=== PATIENT | female | born 1970 | race Caucasian/White ===

== ENCOUNTER 2017-01-12 01:33 | Outpatient (CLI) | payer OTHER | END 2017-01-12 01:34 | disposition critical access hospital (66) | LOC: EMS 01:33 | PROVIDERS: ATTEND Surgery | DX: T44.7X2A Poisoning by beta-adrenoreceptor antagonists, intentional self-harm, initial encounter (principal); T46.1X2A Poisoning by calcium-channel blockers, intentional self-harm, initial encounter | CPT/HCPCS: A0425; A0427 ==

== ENCOUNTER 2017-01-12 01:48 | Inpatient (IN) | payer OTHER ==
[2017-01-12] MEDS ORDERED: SODIUM CHLORIDE 0.9% 1,000 ML IV ONE ×3 (01:56→03:24)
[2017-01-12] MEDS ORDERED: DEXTROSE 50% ABBOJECT 25 GM/50 ML SYRINGE IVP STA (01:59)
[2017-01-12] MEDS ORDERED: GLUCAGON 5 MG in DEXTROSE 5% 45 ML IV STA ×2 (01:59→03:05)
[2017-01-12] MEDS ORDERED: INSULIN REGULAR HUMAN 100 UNIT in SODIUM CHLORIDE 0.9% 100ML 99 ML IV STA (01:59)
[2017-01-12] MEDS ORDERED: GLUCAGON 1 MG/ML VIAL ONE ×3 (02:01→05:47)
[2017-01-12] MEDS ORDERED: WATER FOR INJECTION,STERILE 10 ML ONE (02:01)
[2017-01-12] MEDS ORDERED: INSULIN REGULAR HUMAN 100 UNIT/1 ML 10 ML MDV IVP STA (02:02)
[2017-01-12] MEDS ORDERED: DEXTROSE 50% ABBOJECT 25 GM/50 ML SYRINGE ONE (02:05)
[2017-01-12] MEDS ORDERED: INSULIN REGULAR HUMAN 100 UNIT/1 ML 10 ML MDV ONE ×2 (02:06→02:21)
[2017-01-12] MEDS ORDERED: CALCIUM CHLORIDE ABBOJECT 1000MG/10 ML SYRINGE IVP STA (02:07)
[2017-01-12] MEDS: SODIUM CHLORIDE 0.9% 1,000 ML IV ONE (02:11)
[2017-01-12] MEDS ORDERED: CALCIUM CHLORIDE ABBOJECT 1000MG/10 ML SYRINGE ONE (02:14)
[2017-01-12 02:15] LABS: ACETAMINOPHEN < 10 ug/mL (10-30); ALBUMIN/GLOBULIN RATIO 1.1 (1.0-2.2); BILIRUBIN,TOTAL 0.3 mg/dL (0.2-1.0); BUN - BLOOD UREA NITROGEN 6 mg/dL (6-20); CALCIUM 9.2 mg/dL (8.5-10.3); CARBON DIOXIDE - CO2 26 mmol/L (21-32); CHLORIDE 100 mmol/L (101-111); GFR - MDRD 59 (>89); GLUCOSE 117 mg/dL (70-100); LIPASE 24 U/L (22-51); POTASSIUM 3.1 mmol/L (3.5-5.0); SALICYLATE < 6.0 mg/dL; SODIUM 138 mmol/L (135-145); TOTAL PROTEIN 6.8 g/dL (6.7-8.2)
[2017-01-12] MEDS ORDERED: DEXTROSE 5% 250 ML IV ONE (02:15)
[2017-01-12] MEDS ORDERED: ONDANSETRON 4 MG/2 ML VIAL ONE (02:18)
[2017-01-12 02:24] LABS: BASOPHILS % (AUTO) 0.8 %; EOSINOPHILS # (AUTO) 0.1 10^3/uL (0.0-0.7); EOSINOPHILS % (AUTO) 1.7 %; HCT - HEMATOCRIT 35.3 % (37.0-47.0); LYMPHOCYTES # (AUTO) 1.5 10^3/uL (1.5-3.5); LYMPHOCYTES % (AUTO) 24.6 %; MEAN CORPUSCULAR HEMOGLOBIN 33.8 pg (27.0-31.0); MEAN CORPUSCULAR VOLUME 99.4 fL (81.0-99.0); MEAN PLATELET VOLUME 9.2 fL (7.9-10.8); MONOCYTES # (AUTO) 0.6 10^3/uL (0.0-1.0); MONOCYTES % (AUTO) 9.9 %; NEUTROPHILS # (AUTO) 3.8 10^3/uL (1.5-6.6); NUCLEATED RED BLOOD CELLS AUTO 0.3 /100WBC; RED BLOOD COUNT 3.55 10^6/uL (4.20-5.40); RED CELL DISTRIBUTION WIDTH 17.2 % (12.0-15.0)
[2017-01-12] MEDS: DEXTROSE 10% 1,000 ML IV STA ×3 (02:25→07:31)
[2017-01-12] MEDS ORDERED: POTASSIUM CHLOR 20 MEQ/100 ML 100 ML IV ONE (02:49)
--- NOTE | 2017-01-12 02:52 | ED Physician Documentation ---
PD HPI OVERDOSE - Stated complaint Stated Complaint: OD - Chief complaint Chief Complaint: Cardiac - History obtained from History obtained from: Patient, Family, EMS - History of Present Illness Timing - onset: How many hours ago Subtance(s) ingested: EtOH Associated symptoms: Other (hypotension) Contributing factors: Suicidal Pain level max: 0 Pain level now: 0 Treatment COOK NIGHT: Other (IVF) Similar symptoms before: Diagnosis (suicidal ideation.) Recently seen: Not recently seen - Additional information Additional information: States was suicidal and attempted suicide when she was a teenager. Reportedly took 30 2.5mg amlodopine and 30 50mg metoprolol 4 hrs COOK NIGHT. 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 - Present Medications Home Medications: Ambulatory Orders Medication Instructions Recorded Confirmed Atorvastatin [Lipitor] 0 mg ORAL QPM 01/14/16 01/12/17 Metoprolol Tartrate 0 mg ORAL BID 01/14/16 01/12/17 amLODIPine [Norvasc] 0 mg ORAL DAILY 01/14/16 01/12/17 - Allergies Allergies/Adverse Reactions: Allergies Allergy/AdvReac Type Severity Reaction Status Date / Time acetaminophen [From Vicodin] AdvReac Nausea Verified 01/14/16 13:00 hydrocodone bitartrate * AdvReac Nausea Verified 01/14/16 13:00 [From Vicodin] shellfish derived AdvReac Nausea Verified 01/12/17 03:15 - Social History Does the pt smoke?: No Smoking Status: Former smoker (quit 3 years ago) Does the pt drink ETOH?: Yes Does the pt have substance abuse?: No PD ED PE NORMAL - Vitals Vital signs reviewed: Yes - General General: Alert and oriented X 3, No acute distress, Well developed/nourished - HEENT HEENT: Moist mucous membranes - Neck Neck: Supple, no meningeal sign - Cardiac Cardiac: RRR, Strong equal pulses - Respiratory Respiratory: No respiratory distress, Clear bilaterally - Abdomen Abdomen: Soft, Non tender - Back Back: No CVA TTP, No spinal TTP - Derm Derm: Warm and dry, No rash - Extremities Extremities: No edema, No calf tenderness / cord - Neuro Neuro: Alert and oriented X 3 - Psych Psych: Normal mood, Normal affect Results - Vitals Vitals: Vital Signs - 24 hr 01/12/17 01/12/17 01/12/17 01:50 02:20 02:31 Temperature 36.8 C Heart Rate 70 83 78 Respiratory 15 15 18 Rate Blood Pressure 70/47 L 75/51 L 62/36 L O2 Saturation 96 89 L 100 01/12/17 01/12/17 01/12/17 02:39 02:42 02:45 Temperature Heart Rate 74 75 70 Respiratory 18 17 16 Rate Blood Pressure 87/28 L 68/44 L 80/48 L O2 Saturation 100 97 01/12/17 01/12/17 01/12/17 02:55 02:57 03:05 Temperature Heart Rate 72 71 73 Respiratory 15 13 16 Rate Blood Pressure 84/47 L 82/53 L 88/50 L O2 Saturation 98 97 96 Oxygen O2 Source Nasal cannula Oxygen Flow Rate 4 - Labs Labs: Laboratory Tests 01/12/17 01/12/17 02:00 02:00 WBC 6.0 RBC 3.55 L Hgb 12.0 Hct 35.3 L MCV 99.4 H MCH 33.8 H MCHC 34.0 RDW 17.2 H Plt Count 229 MPV 9.2 Neut # 3.8 Lymph # 1.5 Stoddard # 0.6 Eos # 0.1 Baso # 0.0 Absolute Nucleated RBC 0.02 Nucleated RBCs 0.3 Sodium 138 Potassium 3.1 L Chloride 100 L Carbon Dioxide 26 Anion Gap 12.0 BUN 6 Creatinine 1.0 Estimated GFR (MDRD) 59 L Glucose 117 H Calcium 9.2 Total Bilirubin 0.3 AST 150 H ALT 90 H Alkaline Phosphatase 60 Total Protein 6.8 Albumin 3.5 Globulin 3.3 Albumin/Globulin Ratio 1.1 Lipase 24 Salicylates < 6.0 Acetaminophen < 10 L Ethyl Alcohol 138.3 - Rads (name of study) cxr Radiology: Prelim report reviewed, EMP read contemporaneously, See rad report ( Interstitial infiltrates or noncardiogenic edema. Right IJ catheter tip in the lower SVC. ) Procedures - Central Line Central Line Preparation: Consent Obtained (verbal pt and spouse), Time out completed, Ultrasound used, Sterile prep and drape Central line location: Right IJ Central line type: Triple lumen Central line aftercare: Chlorhexidine disc placed, Secured, Placement confirmed , No pneumothorax, No complications, Bundle checklist complete, Pt tolerated well PD MEDICAL DECISION MAKING - ED course Complexity details: reviewed results, re-evaluated patient, considered differential, d/w patient, d/w family, d/w entry level sales consultant ED course: Patient is a 38-year-old female who presents to the emergency department with a suicide attempt. Patient had a central line placed in the emergency department. 2 peripheral IVs. Given calcium chloride, glucagon, normal saline. Started on Levophed. Given D50 and started on a high-dose insulin drip. Consultation with poison control was also undertaken regarding the above measures. She remained mentating in the emergency department and in control of her own airway , therefore we did not intubate her. Discussed the case with the hospitalist, Dr. Combs who accepts. Patient will be admitted to ICU. This document was made in part using voice recognition software. While efforts are made to proofread this document, sound alike and grammatical errors may occur. - Critical Care Time(min): 45 Time Includes: Direct patient care, Review records, Reassess patient, Document care, Coordinate care, Medical consult, See progress note Data interpretation: See progress note Procedures included in critical care time: See progress note Procedures excluded from critical care time: Central IV, EKG, See progress note Departure - Departure Disposition: 66 [facility] DC/Xfer Clinical Impression: Calcium channel michael overdose Suicide attempt by beta michael overdose Qualifiers: Encounter type: initial encounter Qualified Code(s): T44.7X2A - Poisoning by beta-adrenoreceptor antagonists, intentional self-harm, initial encounter Hypotension Qualifiers: Hypotension type: unspecified hypotension type Qualified Code(s): I95.9 - Hypotension, unspecified Condition: Serious
[2017-01-12] MEDS ORDERED: ACETAMINOPHEN 325 MG TABLET PO PRN (03:05)
[2017-01-12] MEDS ORDERED: INSULIN REGULAR HUMAN 100 UNIT in SODIUM CHLORIDE 0.9% 100ML 99 ML IV SCH (03:05)
[2017-01-12] MEDS ORDERED: CALCIUM GLUCONATE 1000 MG/10 ML VIAL IVP STA (03:05)
[2017-01-12] MEDS ORDERED: PROCHLORPERAZINE 10 MG/2 ML VIAL IVP PRN (03:05)
--- NOTE | 2017-01-12 03:17 | XRAY Preliminary Report ---
Exam: XR Chest 1 View IMPRESSION: 1. Interstitial infiltrates or noncardiogenic edema. 2. Right IJ catheter tip in the lower SVC. [facility] SITE ID: [id number]
--- NOTE | 2017-01-12 03:19 | XRAY Report ---
EXAM: CHEST RADIOGRAPHY EXAM DATE: 01/12/2017 02:58 AM. CLINICAL HISTORY: Central line placement. COMPARISON: 01/14/2016. TECHNIQUE: 1 view. FINDINGS: Lungs/Pleura: Bilateral interstitial infiltrates or noncardiogenic edema. No jo alveolar consolida tion or pleural effusion seen. No pneumothorax. Mediastinum: Within exam limitations, cardiomediastinal contour is normal. Other: Right internal jugular catheter in the lower SVC. IMPRESSION: 1. Interstitial infiltrates or noncardiogenic edema. 2. Right IJ catheter tip in the lower SVC. [facility] Referring Provider Line: [phone] SITE ID: [id number]
[2017-01-12] MEDS ORDERED: POTASSIUM CHLOR 10 MEQ/100 ML 200 ML IV ONE (03:22)
[2017-01-12] MEDS ORDERED: CALCIUM GLUCONATE 1000 MG/10 ML VIAL ONE (03:35)
[2017-01-12] MEDS ORDERED: SODIUM CHLORIDE 0.9% 100ML 100 ML IV ONE (03:49)
[2017-01-12] MEDS ORDERED: CALCIUM GLUCONATE 1,000 MG in SODIUM CHLORIDE 0.9% 50 ML IV ONE (04:00)
[2017-01-12] MEDS ORDERED: DEXTROSE 10% 1,000 ML IV SCH ×2 (04:00→09:00)
[2017-01-12 04:06] LABS: BILIRUBIN,URINE NEGATIVE (NEGATIVE); UA w/ MICROSCOPIC CHARGE YES
[2017-01-12 04:14] LABS: UR CULTURE IF IND INDICATED
[2017-01-12 04:43] LABS: BASOPHILS # (AUTO) 0.1 10^3/uL (0.0-0.1); BASOPHILS % (AUTO) 0.5 %; EOSINOPHILS # (AUTO) 0.1 10^3/uL (0.0-0.7); EOSINOPHILS % (AUTO) 0.8 %; HCT - HEMATOCRIT 33.4 % (37.0-47.0); HGB - HEMOGLOBIN 11.4 g/dL (12.0-16.0); LYMPHOCYTES # (AUTO) 1.4 10^3/uL (1.5-3.5); LYMPHOCYTES % (AUTO) 14.4 %; MEAN CORPUSCULAR HEMOGLOBIN 33.9 pg (27.0-31.0); MEAN CORPUSCULAR HGB CONC 34.1 g/dL (32.0-36.0); MEAN CORPUSCULAR VOLUME 99.5 fL (81.0-99.0); MEAN PLATELET VOLUME 8.5 fL (7.9-10.8); MONOCYTES # (AUTO) 0.4 10^3/uL (0.0-1.0); MONOCYTES % (AUTO) 4.3 %; NEUTROPHILS # (AUTO) 7.6 10^3/uL (1.5-6.6); NUCLEATED RED BLOOD CELLS AUTO 0.2 /100WBC; RED BLOOD COUNT 3.36 10^6/uL (4.20-5.40); RED CELL DISTRIBUTION WIDTH 17.5 % (12.0-15.0); UNCORRECTED WHITE BLOOD COUNT 9.6 x10^3/uL; WHITE BLOOD COUNT 9.6 x10^3/uL (4.8-10.8)
[2017-01-12 04:45] LABS: CALCIUM 9.5 mg/dL (8.5-10.3); CREATININE 0.9 mg/dL (0.4-1.0)
[2017-01-12 04:47] LABS: INR 1.1 (0.8-1.2); PT - PROTHROMBIN TIME 12.3 secs (9.9-12.6)
[2017-01-12 04:48] LABS: POTASSIUM 2.4 mmol/L (3.5-5.0)
[2017-01-12 04:50] LABS: CALCIUM 9.6 mg/dL (8.5-10.3); POTASSIUM 2.4 mmol/L (3.5-5.0)
[2017-01-12 05:08] LABS: ALBUMIN/GLOBULIN RATIO 1.1 (1.0-2.2); BILIRUBIN,TOTAL 0.8 mg/dL (0.2-1.0); CREATININE 0.9 mg/dL (0.4-1.0); MAGNESIUM 1.1 mg/dL (1.7-2.8); TOTAL PROTEIN 5.6 g/dL (6.7-8.2)
--- NOTE | 2017-01-12 05:08 | HISTORY & PHYSICAL EXAMINATION ---
Chief Complaint - Chief Complaint Chief Complaint: overdose on blood pressure meds History of Present Illness - Admitted From Admitted From:: emergency department - History Obtained From Records Reviewed: yes History obtained from: patient and Exam Limitations: none - History of Present Illness HPI Comment/Other: Patient is a 46-year-old female with a past medical history significant for hypertension hyperlipidemia and depression with previous history of suicide attempt who presented to the emergency department with a chief complaint of overdose on blood pressure meds. The patient states that over the last month she has been having symptoms of depression. According to the patient's the symptoms are mild compared to what she's experienced in the past. The patient states that she did have a suicide attempt about 7 or 8 years ago this was also the last time she had severe depression. The patient states that she gets depressed every 7-8 years and the depression lasted for about 6 months. The patient states that today she felt so depressed that she just wanted to go to sleep and not wake up again. At that point she decided to take 30 pills of 50 mg metoprolol and 30-30 pills of 2.5 mg amlodipine hoping that she would not wake up. The patient states she also drank alcohol. The patient states that she took the pills at around 9:30 PM. She states that after taking the pills she felt very tired and had generalized weakness she's felt as though she could not stand up. She then awoke her who was sleeping in bed at 10 PM and told him what she had done. The patient's asked her if she was serious and initially she said no she was not serious but later admitted that she had in fact taking the pills. The patient's states that he then called 911. The patient's states that at no point was the patient lethargic and she was lucid and conversing with him the entire time. The patient admits that this was an attempted suicide. The patient's believes that the patient has been battling with depression as they are going through a divorce. The patient however states that it is not the divorce there is more going on. The patient otherwise denies any nausea or vomiting she denies any abdominal pain she denies any fevers or chills. On presentation to the emergency department the patient was very hypotensive with blood pressure of 70/40. Patient's heart rate was normal and she was mentating well. The emergency room physician called poison control who recommended that the patient be given calcium chloride and glucagon IV. And that she then be started on an insulin drip at 0.5-1 unit per kilogram per hour and D. 10 at 0.5 g per kilogram per hour of glucose. The patient was started on these medications but continued to have blood pressures as low as 60/30 and therefore was also started on Levophed. The emergency room physician placed a central line. The patient's labs showed that she was hypokalemic at 3.1 and she did have elevated LFTs which were concerning for possible shock liver from hypotension. The patient's creatinine remained stable however the patient had not made very much urine despite 3 L of IV fluid. The patient was admitted to the ICU in critical condition and continued on pressor, insulin drip, D. 10 drip and given additional doses of glucagon and calcium. Review of Systems - Constitutional Constitutional: reports: Fatigue, Weakness. denies: Fever, Chills, Malaise, Poor appetite, Diaphoresis, Night sweats, Weight gain, Weight loss - Eyes Eyes: denies: Pain, Irritation, Amaurosis, Blurred vision, Spots in vision, Field loss, Vision loss, Dipolpia, Corrective lenses, Other - Ears, Nose & Throat Ears, Nose & Throat: denies: Ear pain, Hearing loss, Hearing aids, Tinnitus, Vertigo, Nasal pain, Nasal discharge, Nosebleeds, Nasal obstruction, Nasal congestion, Postnasal drainage, Dentures, Sore throat, Hoarseness, Mouth lesions , Bleeding gums, Dental decay, Dental pain, Other - Cardiovascular Cariovascular: denies: Irregular heart rate, Palpitations, Chest pain, Edema, Lightheadedness, Syncope, Exertional dyspnea, Decr. exercise tolerance, Orthopnea, Other - Respiratory Respiratory: denies: Cough, Sputum production, Wheezing, Snoring, Hemoptysis, Orthopnea, SOB at rest, SOB with exertion, Apnea, Stridor, Pleuritic pain, Other - Gastrointestinal Gastrointestinal: denies: Abdominal pain, Abdominal distention, Constipation, Diarrhea, Change in bowel habits, Rectal bleeding, Black stools, Bloody stools, Nausea, Vomiting, Bile emesis, Pino blood emesis, Coffee grounds emesis, Reflux /heartburn, Bloating, Poor appetite, Other - Genitourinary Genitourinary: denies: Dysuria, Frequency, Urgency, Hematuria, Incontinence, Flank pain, Nocturia, Urethral discharge, Sexual dysfunction, Other - Musculoskeletal Musculoskeletal: denies: Muscle pain, Back pain, Muscle aches, Stiffness, Limited range of motion, Muscle weakness, Gout, Joint pain, Joint swelling, Other - Integumentary Integumentary: denies: Rash, Pruritis, Lesions, Dryness, Lumps, Acne, Pigment changes, Nail changes, Hair changes, Other - Neurological Neurological: reports: General weakness. denies: Focal weakness, Headache, Dizziness, Numbness, Memory problems, Pre-existing deficit, Abnormal gait, Seizures, Incoordination, Slurred speech - Psychiatric Psychiatric: reports: Depression, Suicidal - Endocrine Endocrine: denies: Polyuria, Polydypsia, Polyphagia, Intolerance to cold, Intolerance to heat, Other - Hematologic/Lymphatic Hematologic/Lymphatic: denies: Anemia, Bruising, Petechiae, Blood clots, Lymphadenopathy, Bleeding tendencies, Recurrent infections, Other History - Past Medical History Cardiovascular: reports: Hypertension, High cholesterol Psych: reports: Depression (With previous suicide attempt) - Past Surgical History General: reports: 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 Social History Notes: Patient is originally from [facility]. She moved to the [facility] 16 years ago to get away from her family in [place] and has been dealing with depression from a young age. She has 2 kids in [place]. She is currently and lives with her spouse but they are going through a divorse. - Substance History Use: Uses substance without health or social issues: Tobacco (1/2 pack to 1PPD for 30 plus years. ), Amphetamine (Patient denies use but positive on urine drug screen), Cocaine (Patient denies use but positive on urine drug screen) Abuse: Recurrent use of substance despite neg consequences: Alcohol (She has been a heavy drinker and alcoholic in the past drinking as much as 1/2 gallon of vodka a day but has recently cut down but still drinking) Tobacco Details: Cigarettes - POLST Patient has POLST: No POLST Status: Full Code Meds/Allgy - Home Medications Home Medications: Ambulatory Orders Medication Instructions Recorded Confirmed Atorvastatin [Lipitor] 0 mg ORAL QPM 01/14/16 01/12/17 Metoprolol Tartrate 0 mg ORAL BID 01/14/16 01/12/17 amLODIPine [Norvasc] 0 mg ORAL DAILY 01/14/16 01/12/17 - Allergies Allergies/Adverse Reactions: Allergies Allergy/AdvReac Type Severity Reaction Status Date / Time acetaminophen [From Vicodin] AdvReac Nausea Verified 01/14/16 13:00 hydrocodone bitartrate * AdvReac Nausea Verified 01/14/16 13:00 [From Vicodin] shellfish derived AdvReac Nausea Verified 01/12/17 03:15 Exam - Vital Signs Reviewed Vital Signs: Yes Vital Signs: Vital Signs x48h Temp Pulse Pulse Resp BP BP Pulse Ox 01/12/17 04:30 36.6 C 73 18 92/61 01/12/17 04:07 68 16 80/56 L 99 01/12/17 04:00 70 23 89/56 L 97 01/12/17 03:39 71 20 81/44 L 97 01/12/17 03:34 72 15 79/54 L 100 01/12/17 03:25 70 16 81/52 L 99 01/12/17 03:20 72 14 83/55 L 97 01/12/17 03:16 70 16 83/55 L 96 01/12/17 03:10 73 16 84/52 L 96 - Physical Exam General Appearance: positive: Alert, Severe distress (Very hypotensive, feels very tired and weak) Eyes Bilateral: positive: Normal inspection, PERRL, EOMI, No lid inflammation, Conjunctivae nml, No scleral icterus ENT: positive: ENT inspection nml, Pharynx nml, Dry mucous membranes. negative : Purulent nasal drainage, Pharyngeal erythema, Oral lesions Neck: positive: Nml inspection, Thyroid nml, No JVD, Trachea midline. negative : Thyromegaly, Lymphadenopathy (R), Lymphadenopathy (L), Stiff neck, Carotid bruit Respiratory: positive: Chest non-tender, No respiratory distress, Breath sounds nml. negative: Wheezes, Rales, Rhonchi Cardiovascular: positive: Regular rate & rhythm, No murmur, No gallop Peripheral Pulses: positive: 2+ Abdomen: positive: Non-tender, No organomegaly, Nml bowel sounds, No distention. negative: Guarding, Rebound, Hepatomegaly Back: positive: Nml inspection. negative: CVA tenderness (R), CVA tenderness (L ) Skin: positive: No rash, Dry, Pallor Extremities: positive: Non-tender, Full ROM, Nml appearance, No pedal edema Neurologic/Psychiatric: positive: Oriented x3, CN's nml (2-12), Motor nml, Sensation nml, Depressed mood/affect (suicidal) Conclusion/Plan - Problem List (1) Suicide attempt by beta michael overdose Conclusion/Plan: Patient presents to the emergency department after taking 30-40 pills of metoprolol tartrate 25 mg On presentation patient was not bradycardic but was hypotensive and did not respond to 3 L of IV fluid therefore was placed on levophed Poison control was called and they recommended high dose insulin drip, D. 10, IV calcium and glucagon IV Plan: Levophed IV to maintain map greater than 60 IV fluids IV insulin drip at 0.5-1 unit per kilogram per hour D. 10 at 230 mL per hour IV calcium gluconate and IV glucagon Monitor on manufacturing analyst closely in the ICU Qualifiers: Encounter type: initial encounter Qualified Code(s): T44.7X2A - Poisoning by beta-adrenoreceptor antagonists, intentional self-harm, initial encounter (2) Calcium channel michael overdose Conclusion/Plan: Patient presents to the emergency department after taking 30-40 pills of amlodipine 2.5 mg in an attempted suicide On presentation patient was not bradycardic but was hypotensive and did not respond to 3 L of IV fluid therefore was placed on levophed Poison control was called and they recommended high dose insulin drip, D. 10, IV calcium and glucagon IV Plan: Levophed IV to maintain map greater than 60 IV fluids IV insulin drip at 0.5-1 unit per kilogram per hour D. 10 at 230 mL per hour IV calcium gluconate and IV glucagon Monitor on manufacturing analyst closely in the ICU (3) Hypotension due to medication Conclusion/Plan: Admit to the ICU with a central line on levophed drip Treat for calcium channel michael and beta michael overdose as above Monitor closely (4) Depression with suicidal ideation Conclusion/Plan: Patient presented to ED for attempted suicide with beta blockers and calcium channel blockers She has been depressed for the last month but tonight decided she no longer wanted to live She has been going through a divorce but patient states it is more than just that She is not on any anti depressants She has attempted suicide once before 6-7 years ago Plan: Stabilize medically Social work and [facility] consults (5) Alcohol abuse Conclusion/Plan: Patient has history of alcohol abuse but has cut down on alcohol use recently She has never gone through DTs but did drink 1/2 gallon of vodka a day at one point Patient did drink prior to coming to hospital Patient counselled Will place on CIWA if she begins to withdraw (6) Tobacco abuse Conclusion/Plan: Patient smokes 1/2 pack to 1PPD She was counselled She will be given nicotine patch if needed (7) Methamphetamine abuse Conclusion/Plan: Patient denied use but positive of UTox Counselled Will watch for withdrawal (8) Cocaine abuse Conclusion/Plan: Patient denied use but positive on Utox Will be counselled Consult social work (9) Hyperlipidemia Conclusion/Plan: Continue lipitor (10) Prophylactic use of low molecular weight heparin for venous thromboembolism Conclusion/Plan: Place on lovenox - Lab Results Lab results reviewed: Yes Domenic Bones: 01/12/17 04:35 01/12/17 04:35 - Diagnostic Imaging Results Diagnostic Imaging Results: positive: Final report reviewed - EKG Results EKG Interpreted Independently: Yes Issues/Core Measures - Anticipated LOS Anticipated Stay Length: 2 or more midnights - DVT/VTE - Prophylaxis VTE/DVT Prophylaxis med ordered at admit?: Yes
[2017-01-12 05:10] LABS: PHOSPHORUS 1.7 mg/dL (2.5-4.6)
[2017-01-12] MEDS: ONDANSETRON 4 MG/2 ML VIAL IVP PRN (05:26)
[2017-01-12] MEDS ORDERED: cefTRIAXone 1 GM in SODIUM CHLORIDE 0.9% MINIBAG 100 ML IV SCH (06:00)
[2017-01-12] MEDS: SODIUM CHLORIDE FLUSH 0.9% 10 ML SYRINGE IVP SCH ×3 (06:01→22:00)
[2017-01-12] MEDS ORDERED: POTASSIUM PHOSPHATE 15 MMOL in SODIUM CHLORIDE 0.9% 250 ML IV ONE (06:05)
[2017-01-12] MEDS: INSULIN REGULAR HUMAN 100 UNIT in SODIUM CHLORIDE 0.9% 100ML 99 ML IV SCH ×9 (06:09→23:32)
[2017-01-12] MEDS: POTASSIUM CHLOR 20 MEQ/100 ML 100 ML IV SCH ×6 (06:35→12:08)
[2017-01-12] MEDS: MAGNESIUM SULFATE 2 GRAM 50 ML IV SCH ×2 (06:38→07:42)
[2017-01-12] MEDS: ENOXAPARIN 40 MG/0.4 ML SYRINGE SUBQ SCH (09:02)
[2017-01-12] MEDS: FAMOTIDINE 20 MG/50 ML 50 ML IV SCH (09:24)
[2017-01-12] MEDS: POTASSIUM PHOSPHATE 15 MMOL in SODIUM CHLORIDE 0.9% 250 ML IV SCH ×2 (12:58→17:36)
[2017-01-12] MEDS: POTASSIUM CHLORIDE 20 MEQ TABLET PO SCH ×2 (15:59→21:32)
[2017-01-12] MEDS ORDERED: A & D OINTMENT 5 GM PACKET TOP ONE (16:03)
[2017-01-12] MEDS ORDERED: POTASSIUM CHLORIDE INJ 20 MEQ in DEXTROSE 10% 1,000 ML IV SCH (17:00)
[2017-01-12] MEDS: POTASSIUM CHLORIDE INJ 20 MEQ in DEXTROSE 10% 1,000 ML IV SCH ×2 (20:58→23:31)
[2017-01-12] MEDS: ATORVASTATIN 10 MG TABLET PO SCH (21:32)
[2017-01-12] MEDS: SODIUM CHLORIDE FLUSH 0.9% 10 ML SYRINGE IVP PRN (22:00)
[2017-01-13 00:37] LABS: MAGNESIUM 1.5 mg/dL (1.7-2.8); POTASSIUM 3.9 mmol/L (3.5-5.0)
[2017-01-13] MEDS ORDERED: MAGNESIUM SULFATE 2 GRAM 50 ML IV ONE ×2 (00:51→07:00)
[2017-01-13] MEDS: NEUTRA-PHOS 250 MG TABLET PO SCH ×2 (01:12→03:18)
[2017-01-13] MEDS ORDERED: FUROSEMIDE 20 MG/2 ML VIAL IVP STA (01:39)
[2017-01-13] MEDS ORDERED: ALBUTEROL NEB 2.5 MG/3 ML INH PRN (01:51)
[2017-01-13] MEDS: INSULIN REGULAR HUMAN 100 UNIT in SODIUM CHLORIDE 0.9% 100ML 99 ML IV SCH ×3 (02:19→07:42)
--- NOTE | 2017-01-13 03:36 | XRAY Preliminary Report ---
Exam: XR Chest 1 View IMPRESSION: New small left basilar airspace disease and small left effusion. [facility] SITE ID: [id number]
--- NOTE | 2017-01-13 03:41 | XRAY Report ---
EXAM: CHEST RADIOGRAPHY EXAM DATE: 01/13/2017 02:01 AM. CLINICAL HISTORY: Increasing hypoxia and shortness of breath. COMPARISON: 01/12/2017. TECHNIQUE: 1 view. FINDINGS: Lungs/Pleura: There is left basilar consolidation. Small left-sided pleural effusion. No pneumothorax . Mediastinum: Within exam limitations, cardiomediastinal contour is normal. Other: Right IJ central venous catheter tip projects over the cavoatrial junction. IMPRESSION: New small left basilar airspace disease and small left effusion. [facility] Referring Provider Line: [phone] SITE ID: [id number]
[2017-01-13] MEDS ORDERED: AZITHROMYCIN INJ 500 MG in SODIUM CHLORIDE 0.9% 250 ML IV SCH (04:00)
[2017-01-13] MEDS ORDERED: AZITHROMYCIN 250 MG TABLET PO STA (04:20)
[2017-01-13] MEDS: SODIUM CHLORIDE FLUSH 0.9% 10 ML SYRINGE IVP SCH ×3 (04:30→21:26)
[2017-01-13] MEDS: POTASSIUM CHLORIDE INJ 20 MEQ in DEXTROSE 10% 1,000 ML IV SCH ×2 (04:54→10:07)
[2017-01-13 05:46] LABS: BASOPHILS % (AUTO) 0.2 %; EOSINOPHILS % (AUTO) 0.3 %; HCT - HEMATOCRIT 36.9 % (37.0-47.0); HGB - HEMOGLOBIN 12.1 g/dL (12.0-16.0); LYMPHOCYTES % (AUTO) 7.6 %; MEAN CORPUSCULAR HEMOGLOBIN 32.7 pg (27.0-31.0); MEAN CORPUSCULAR HGB CONC 32.6 g/dL (32.0-36.0); MEAN CORPUSCULAR VOLUME 100.3 fL (81.0-99.0); MONOCYTES # (AUTO) 1.1 10^3/uL (0.0-1.0); MONOCYTES % (AUTO) 8.3 %; NEUTROPHILS # (AUTO) 10.9 10^3/uL (1.5-6.6); NEUTROPHILS % (AUTO) 83.6 %; NUCLEATED RED BLOOD CELLS AUTO 0.1 /100WBC; RED BLOOD COUNT 3.68 10^6/uL (4.20-5.40); RED CELL DISTRIBUTION WIDTH 16.9 % (12.0-15.0)
[2017-01-13 05:59] LABS: ALBUMIN/GLOBULIN RATIO 0.9 (1.0-2.2); BILIRUBIN,TOTAL 0.8 mg/dL (0.2-1.0); BUN - BLOOD UREA NITROGEN < 5 mg/dL (6-20); CALCIUM 7.6 mg/dL (8.5-10.3); CARBON DIOXIDE - CO2 19 mmol/L (21-32); CHLORIDE 103 mmol/L (101-111); CREATININE 0.5 mg/dL (0.4-1.0); GFR - MDRD 132 (>89); GLUCOSE 88 mg/dL (70-100); MAGNESIUM 1.6 mg/dL (1.7-2.8); PHOSPHORUS 3.3 mg/dL (2.5-4.6); POTASSIUM 3.5 mmol/L (3.5-5.0); SODIUM 133 mmol/L (135-145); TOTAL PROTEIN 5.2 g/dL (6.7-8.2)
[2017-01-13] MEDS: POTASSIUM CHLORIDE 20 MEQ TABLET PO SCH ×4 (06:08→21:26)
[2017-01-13] MEDS: SODIUM CHLORIDE FLUSH 0.9% 10 ML SYRINGE IVP PRN ×2 (09:39→10:25)
[2017-01-13] MEDS: ONDANSETRON 4 MG/2 ML VIAL IVP PRN ×2 (09:39→16:16)
[2017-01-13] MEDS: cefTRIAXone 1 GM in SODIUM CHLORIDE 0.9% MINIBAG 100 ML IV SCH (09:46)
[2017-01-13] MEDS: ENOXAPARIN 40 MG/0.4 ML SYRINGE SUBQ SCH (09:58)
[2017-01-13] MEDS ORDERED: DEXTROSE 50% ABBOJECT 25 GM/50 ML SYRINGE ONE (10:06)
[2017-01-13] MEDS: FAMOTIDINE 20 MG/50 ML 50 ML IV SCH (10:17)
--- NOTE | 2017-01-13 12:51 | PROVIDER PROGRESS NOTE ---
Subjective - Prog Note Date Prog Note Date: 01/13/17 Prog Note Time: 12:46 - Subjective Subjective: She was monitored closely in the ICU from admission to now. Continues to be in ICU. Insulin drip was tapered down this morning. Finally stopped when glucose was 65 and the patient was tachycardic in the 110s 120s. Yesterday urine output picked up in the late morning once hypotension was adequately treated with levo fed. She stated levo fed overnight and this morning systolic is consistently over 100. Have tapered off levo fed. So far tolerating it. Still occasionally drops below 100 systolic but then rebounds. Had more cough and SOB this am. CXR shows pneumonia. Started on abx. She did need oxygen because of hypoxemia yesterday. Urinalysis is positive growth of bacteria. She is on Rocephin and adequately covered. Current Medications - Current Medications Current Medications: Active Medications Acetaminophen (Tylenol) 650 mg PO Q4HR PRN PRN Reason: Pain 1 to 4 Albuterol () 2.5 mg INH RTQ4H PRN PRN Reason: Wheezing Atorvastatin Calcium (Lipitor) 10 mg PO QPM [facility] Last Admin: 01/12/17 21:32 Dose: 10 mg Azithromycin (Zithromax) 250 mg PO DAILY [facility] Enoxaparin Sodium (Lovenox) 40 mg SUBQ DAILY [facility] Last Admin: 01/13/17 09:58 Dose: 40 mg Heparin Sodium (Beef Lung) () 30 - 50 unit IVP ONCE PRN PRN Reason: Central Line Protocol (<24 hr) Stop: 02/11/17 22:25 Famotidine (Pepcid 20 Mg/50 Ml) 50 mls @ 100 mls/hr IV DAILY [facility] Last Admin: 01/13/17 10:17 Dose: 100 mls/hr Norepinephrine Bitartrate 8 mg (/ Dextrose) 250 mls @ 56.25 mls/hr IV .Q4H27M KALEY; 30 MCG/MIN PRN Reason: Protocol Last Titration: 01/13/17 09:57 Dose: 2 mcg/min Ceftriaxone Sodium 1 gm/ (Sodium Chloride) 100 mls @ 200 mls/hr IV DAILY [facility] Last Admin: 01/13/17 09:46 Dose: 200 mls/hr Potassium Chloride 20 meq/ (Dextrose) 1,010 mls @ 200 mls/hr IV .Q5H3M [facility] Last Admin: 01/13/17 10:07 Dose: 200 mls/hr Ondansetron HCl (Zofran Inj) 4 mg IVP Q6HR PRN PRN Reason: Nausea / Vomiting Last Admin: 01/13/17 09:39 Dose: 4 mg Potassium Chloride (K-Dur) 20 meq PO TID [facility] Last Admin: 01/13/17 06:08 Dose: 20 meq Prochlorperazine Edisylate (Compazine Inj) 10 mg IVP Q6HR PRN PRN Reason: Nausea / Vomiting Sodium Chloride (Normal Saline Flush 0.9%) 10 ml IVP PRN PRN PRN Reason: NEEDED PER PROVIDER ORDERS Last Admin: 01/13/17 10:25 Dose: 10 ml Sodium Chloride (Normal Saline Flush 0.9%) 10 ml IVP Q8HR [facility] Last Admin: 01/13/17 04:30 Dose: 20 ml Atorvastatin [Lipitor] 10 mg ORAL QPM 01/14/16 Amlodipine Besylate [Amlodipine Besylate] 2.5 mg PO DAILY 01/12/17 Metoprolol Tartrate [Metoprolol Tartrate] 50 mg PO BID 01/12/17 Objective - Vital Signs/Intake & Output Reviewed Vital Signs: Yes Vital Signs: Vital Signs x48h Temp Pulse Pulse Resp BP Pulse Ox 01/13/17 11:48 116 H 19 89/64 L 99 01/13/17 10:55 112 H 24 90/56 L 100 01/13/17 09:50 122 H 26 H 108/65 100 01/13/17 08:56 120 H 24 103/57 L 97 01/13/17 07:53 37.2 C 112 H 32 H 102/64 98 01/13/17 07:20 118 H 24 01/13/17 07:00 116 H 21 95/56 L 97 01/13/17 06:10 121 H 22 116/78 93 01/13/17 05:00 110 H 23 102/56 L 97 Intake & Output: Intake & Output 01/10/17 01/11/17 01/12/17 01/13/17 23:59 23:59 23:59 23:59 Intake Total 0803 3509 Output Total 1187 1775 Balance 6409 1594 - Objective General Appearance: positive: No acute distress Eyes Bilateral: positive: PERRL, EOMI ENT: positive: Pharynx nml Neck: positive: No JVD. negative: Stiff neck, Carotid bruit Respiratory: positive: Chest non-tender, No respiratory distress (but has a fast rate). negative: Wheezes, Rales, Rhonchi Cardiovascular: positive: Regular rate & rhythm, Tachycardia Abdomen: positive: Non-tender, No organomegaly, Nml bowel sounds, No distention Extremities: positive: Non-tender, No pedal edema Neurologic/Psychiatric: positive: Oriented x3, CN's nml (2-12), Depressed mood/ affect (flat, withdrawn.). negative: Motor nml (occasional tremor) - Lab Results Fish Bones: 01/13/17 04:30 01/13/17 04:30 Other Labs: Lab Results x24hrs 01/13/17 01/13/17 01/13/17 Range/Units 11:56 10:47 10:18 WBC (4.8-10.8) x10^3/uL RBC (4.20-5.40) 10^6/uL Hgb (12.0-16.0) g/dL Hct (37.0-47.0) % MCV (81.0-99.0) fL MCH (27.0-31.0) pg MCHC (32.0-36.0) g/dL RDW (12.0-15.0) % Plt Count (130-450) 10^3/uL MPV (7.9-10.8) fL Neut # (1.5-6.6) 10^3/uL Lymph # (1.5-3.5) 10^3/uL Ralls # (0.0-1.0) 10^3/uL Eos # (0.0-0.7) 10^3/uL Baso # (0.0-0.1) 10^3/uL Absolute Nucleated RBC x10^3/uL Nucleated RBCs /100WBC Sodium (135-145) mmol/L Potassium (3.5-5.0) mmol/L Chloride (101-111) mmol/L Carbon Dioxide (21-32) mmol/L Anion Gap (6-13) BUN (6-20) mg/dL Creatinine (0.4-1.0) mg/dL Estimated GFR (MDRD) (>89) Glucose (70-100) mg/dL POC Whole Bld Glucose 150 H 124 H 126 H (70 - 100) mg/dL Calcium (8.5-10.3) mg/dL Phosphorus (2.5-4.6) mg/dL Magnesium (1.7-2.8) mg/dL Total Bilirubin (0.2-1.0) mg/dL AST (10-42) IU/L ALT (10-60) IU/L Alkaline Phosphatase (42-121) IU/L B-Natriuretic Peptide (5-100) pg/mL Total Protein (6.7-8.2) g/dL Albumin (3.2-5.5) g/dL Globulin (2.1-4.2) g/dL Albumin/Globulin Ratio (1.0-2.2) 01/13/17 01/13/17 01/13/17 Range/Units 10:00 09:43 08:52 WBC (4.8-10.8) x10^3/uL RBC (4.20-5.40) 10^6/uL Hgb (12.0-16.0) g/dL Hct (37.0-47.0) % MCV (81.0-99.0) fL MCH (27.0-31.0) pg MCHC (32.0-36.0) g/dL RDW (12.0-15.0) % Plt Count (130-450) 10^3/uL MPV (7.9-10.8) fL Neut # (1.5-6.6) 10^3/uL Lymph # (1.5-3.5) 10^3/uL Ralls # (0.0-1.0) 10^3/uL Eos # (0.0-0.7) 10^3/uL Baso # (0.0-0.1) 10^3/uL Absolute Nucleated RBC x10^3/uL Nucleated RBCs /100WBC Sodium (135-145) mmol/L Potassium (3.5-5.0) mmol/L Chloride (101-111) mmol/L Carbon Dioxide (21-32) mmol/L Anion Gap (6-13) BUN (6-20) mg/dL Creatinine (0.4-1.0) mg/dL Estimated GFR (MDRD) (>89) Glucose (70-100) mg/dL POC Whole Bld Glucose 65 L 75 76 (70 - 100) mg/dL Calcium (8.5-10.3) mg/dL Phosphorus (2.5-4.6) mg/dL Magnesium (1.7-2.8) mg/dL Total Bilirubin (0.2-1.0) mg/dL AST (10-42) IU/L ALT (10-60) IU/L Alkaline Phosphatase (42-121) IU/L B-Natriuretic Peptide (5-100) pg/mL Total Protein (6.7-8.2) g/dL Albumin (3.2-5.5) g/dL Globulin (2.1-4.2) g/dL Albumin/Globulin Ratio (1.0-2.2) 01/13/17 01/13/17 01/13/17 Range/Units 07:50 07:24 06:07 WBC (4.8-10.8) x10^3/uL RBC (4.20-5.40) 10^6/uL Hgb (12.0-16.0) g/dL Hct (37.0-47.0) % MCV (81.0-99.0) fL MCH (27.0-31.0) pg MCHC (32.0-36.0) g/dL RDW (12.0-15.0) % Plt Count (130-450) 10^3/uL MPV (7.9-10.8) fL Neut # (1.5-6.6) 10^3/uL Lymph # (1.5-3.5) 10^3/uL Ralls # (0.0-1.0) 10^3/uL Eos # (0.0-0.7) 10^3/uL Baso # (0.0-0.1) 10^3/uL Absolute Nucleated RBC x10^3/uL Nucleated RBCs /100WBC Sodium (135-145) mmol/L Potassium (3.5-5.0) mmol/L Chloride (101-111) mmol/L Carbon Dioxide (21-32) mmol/L Anion Gap (6-13) BUN (6-20) mg/dL Creatinine (0.4-1.0) mg/dL Estimated GFR (MDRD) (>89) Glucose (70-100) mg/dL POC Whole Bld Glucose 82 100 91 (70 - 100) mg/dL Calcium (8.5-10.3) mg/dL Phosphorus (2.5-4.6) mg/dL Magnesium (1.7-2.8) mg/dL Total Bilirubin (0.2-1.0) mg/dL AST (10-42) IU/L ALT (10-60) IU/L Alkaline Phosphatase (42-121) IU/L B-Natriuretic Peptide (5-100) pg/mL Total Protein (6.7-8.2) g/dL Albumin (3.2-5.5) g/dL Globulin (2.1-4.2) g/dL Albumin/Globulin Ratio (1.0-2.2) 01/13/17 01/13/17 01/13/17 Range/Units 04:35 04:30 04:30 WBC 13.0 H (4.8-10.8) x10^3/uL RBC 3.68 L (4.20-5.40) 10^6/uL Hgb 12.1 (12.0-16.0) g/dL Hct 36.9 L (37.0-47.0) % MCV 100.3 H (81.0-99.0) fL MCH 32.7 H (27.0-31.0) pg MCHC 32.6 (32.0-36.0) g/dL RDW 16.9 H (12.0-15.0) % Plt Count 247 (130-450) 10^3/uL MPV 9.0 (7.9-10.8) fL Neut # 10.9 H (1.5-6.6) 10^3/uL Lymph # 1.0 L (1.5-3.5) 10^3/uL Ralls # 1.1 H (0.0-1.0) 10^3/uL Eos # 0.0 (0.0-0.7) 10^3/uL Baso # 0.0 (0.0-0.1) 10^3/uL Absolute Nucleated RBC 0.01 x10^3/uL Nucleated RBCs 0.1 /100WBC Sodium 133 L (135-145) mmol/L Potassium 3.5 (3.5-5.0) mmol/L Chloride 103 (101-111) mmol/L Carbon Dioxide 19 L (21-32) mmol/L Anion Gap 11.0 (6-13) BUN < 5 L (6-20) mg/dL Creatinine 0.5 (0.4-1.0) mg/dL Estimated GFR (MDRD) 132 (>89) Glucose 88 (70-100) mg/dL POC Whole Bld Glucose 92 (70 - 100) mg/dL Calcium 7.6 L (8.5-10.3) mg/dL Phosphorus 3.3 (2.5-4.6) mg/dL Magnesium 1.6 L (1.7-2.8) mg/dL Total Bilirubin 0.8 (0.2-1.0) mg/dL AST 188 H (10-42) IU/L ALT 134 H (10-60) IU/L Alkaline Phosphatase 60 (42-121) IU/L B-Natriuretic Peptide (5-100) pg/mL Total Protein 5.2 L (6.7-8.2) g/dL Albumin 2.4 L (3.2-5.5) g/dL Globulin 2.8 (2.1-4.2) g/dL Albumin/Globulin Ratio 0.9 L (1.0-2.2) 01/13/17 01/13/17 01/13/17 Range/Units 03:19 01:54 01:11 WBC (4.8-10.8) x10^3/uL RBC (4.20-5.40) 10^6/uL Hgb (12.0-16.0) g/dL Hct (37.0-47.0) % MCV (81.0-99.0) fL MCH (27.0-31.0) pg MCHC (32.0-36.0) g/dL RDW (12.0-15.0) % Plt Count (130-450) 10^3/uL MPV (7.9-10.8) fL Neut # (1.5-6.6) 10^3/uL Lymph # (1.5-3.5) 10^3/uL Ralls # (0.0-1.0) 10^3/uL Eos # (0.0-0.7) 10^3/uL Baso # (0.0-0.1) 10^3/uL Absolute Nucleated RBC x10^3/uL Nucleated RBCs /100WBC Sodium (135-145) mmol/L Potassium (3.5-5.0) mmol/L Chloride (101-111) mmol/L Carbon Dioxide (21-32) mmol/L Anion Gap (6-13) BUN (6-20) mg/dL Creatinine (0.4-1.0) mg/dL Estimated GFR (MDRD) (>89) Glucose (70-100) mg/dL POC Whole Bld Glucose 94 101 H 94 (70 - 100) mg/dL Calcium (8.5-10.3) mg/dL Phosphorus (2.5-4.6) mg/dL Magnesium (1.7-2.8) mg/dL Total Bilirubin (0.2-1.0) mg/dL AST (10-42) IU/L ALT (10-60) IU/L Alkaline Phosphatase (42-121) IU/L B-Natriuretic Peptide (5-100) pg/mL Total Protein (6.7-8.2) g/dL Albumin (3.2-5.5) g/dL Globulin (2.1-4.2) g/dL Albumin/Globulin Ratio (1.0-2.2) 01/13/17 01/13/17 01/13/17 Range/Units 00:05 00:05 00:05 WBC (4.8-10.8) x10^3/uL RBC (4.20-5.40) 10^6/uL Hgb (12.0-16.0) g/dL Hct (37.0-47.0) % MCV (81.0-99.0) fL MCH (27.0-31.0) pg MCHC (32.0-36.0) g/dL RDW (12.0-15.0) % Plt Count (130-450) 10^3/uL MPV (7.9-10.8) fL Neut # (1.5-6.6) 10^3/uL Lymph # (1.5-3.5) 10^3/uL Ralls # (0.0-1.0) 10^3/uL Eos # (0.0-0.7) 10^3/uL Baso # (0.0-0.1) 10^3/uL Absolute Nucleated RBC x10^3/uL Nucleated RBCs /100WBC Sodium (135-145) mmol/L Potassium 3.9 (3.5-5.0) mmol/L Chloride (101-111) mmol/L Carbon Dioxide (21-32) mmol/L Anion Gap (6-13) BUN (6-20) mg/dL Creatinine (0.4-1.0) mg/dL Estimated GFR (MDRD) (>89) Glucose (70-100) mg/dL POC Whole Bld Glucose (70 - 100) mg/dL Calcium (8.5-10.3) mg/dL Phosphorus 2.5 (2.5-4.6) mg/dL Magnesium 1.5 L (1.7-2.8) mg/dL Total Bilirubin (0.2-1.0) mg/dL AST (10-42) IU/L ALT (10-60) IU/L Alkaline Phosphatase (42-121) IU/L B-Natriuretic Peptide 279 H (5-100) pg/mL Total Protein (6.7-8.2) g/dL Albumin (3.2-5.5) g/dL Globulin (2.1-4.2) g/dL Albumin/Globulin Ratio (1.0-2.2) 01/13/17 01/12/17 01/12/17 Range/Units 00:03 22:52 21:37 WBC (4.8-10.8) x10^3/uL RBC (4.20-5.40) 10^6/uL Hgb (12.0-16.0) g/dL Hct (37.0-47.0) % MCV (81.0-99.0) fL MCH (27.0-31.0) pg MCHC (32.0-36.0) g/dL RDW (12.0-15.0) % Plt Count (130-450) 10^3/uL MPV (7.9-10.8) fL Neut # (1.5-6.6) 10^3/uL Lymph # (1.5-3.5) 10^3/uL Ralls # (0.0-1.0) 10^3/uL Eos # (0.0-0.7) 10^3/uL Baso # (0.0-0.1) 10^3/uL Absolute Nucleated RBC x10^3/uL Nucleated RBCs /100WBC Sodium (135-145) mmol/L Potassium (3.5-5.0) mmol/L Chloride (101-111) mmol/L Carbon Dioxide (21-32) mmol/L Anion Gap (6-13) BUN (6-20) mg/dL Creatinine (0.4-1.0) mg/dL Estimated GFR (MDRD) (>89) Glucose (70-100) mg/dL POC Whole Bld Glucose 102 H 93 85 (70 - 100) mg/dL Calcium (8.5-10.3) mg/dL Phosphorus (2.5-4.6) mg/dL Magnesium (1.7-2.8) mg/dL Total Bilirubin (0.2-1.0) mg/dL AST (10-42) IU/L ALT (10-60) IU/L Alkaline Phosphatase (42-121) IU/L B-Natriuretic Peptide (5-100) pg/mL Total Protein (6.7-8.2) g/dL Albumin (3.2-5.5) g/dL Globulin (2.1-4.2) g/dL Albumin/Globulin Ratio (1.0-2.2) 01/12/17 01/12/17 01/12/17 Range/Units 20:57 20:09 18:53 WBC (4.8-10.8) x10^3/uL RBC (4.20-5.40) 10^6/uL Hgb (12.0-16.0) g/dL Hct (37.0-47.0) % MCV (81.0-99.0) fL MCH (27.0-31.0) pg MCHC (32.0-36.0) g/dL RDW (12.0-15.0) % Plt Count (130-450) 10^3/uL MPV (7.9-10.8) fL Neut # (1.5-6.6) 10^3/uL Lymph # (1.5-3.5) 10^3/uL Ralls # (0.0-1.0) 10^3/uL Eos # (0.0-0.7) 10^3/uL Baso # (0.0-0.1) 10^3/uL Absolute Nucleated RBC x10^3/uL Nucleated RBCs /100WBC Sodium (135-145) mmol/L Potassium (3.5-5.0) mmol/L Chloride (101-111) mmol/L Carbon Dioxide (21-32) mmol/L Anion Gap (6-13) BUN (6-20) mg/dL Creatinine (0.4-1.0) mg/dL Estimated GFR (MDRD) (>89) Glucose (70-100) mg/dL POC Whole Bld Glucose 85 82 111 H (70 - 100) mg/dL Calcium (8.5-10.3) mg/dL Phosphorus (2.5-4.6) mg/dL Magnesium (1.7-2.8) mg/dL Total Bilirubin (0.2-1.0) mg/dL AST (10-42) IU/L ALT (10-60) IU/L Alkaline Phosphatase (42-121) IU/L B-Natriuretic Peptide (5-100) pg/mL Total Protein (6.7-8.2) g/dL Albumin (3.2-5.5) g/dL Globulin (2.1-4.2) g/dL Albumin/Globulin Ratio (1.0-2.2) 01/12/17 01/12/17 01/12/17 Range/Units 18:06 17:11 16:14 WBC (4.8-10.8) x10^3/uL RBC (4.20-5.40) 10^6/uL Hgb (12.0-16.0) g/dL Hct (37.0-47.0) % MCV (81.0-99.0) fL MCH (27.0-31.0) pg MCHC (32.0-36.0) g/dL RDW (12.0-15.0) % Plt Count (130-450) 10^3/uL MPV (7.9-10.8) fL Neut # (1.5-6.6) 10^3/uL Lymph # (1.5-3.5) 10^3/uL Ralls # (0.0-1.0) 10^3/uL Eos # (0.0-0.7) 10^3/uL Baso # (0.0-0.1) 10^3/uL Absolute Nucleated RBC x10^3/uL Nucleated RBCs /100WBC Sodium (135-145) mmol/L Potassium (3.5-5.0) mmol/L Chloride (101-111) mmol/L Carbon Dioxide (21-32) mmol/L Anion Gap (6-13) BUN (6-20) mg/dL Creatinine (0.4-1.0) mg/dL Estimated GFR (MDRD) (>89) Glucose (70-100) mg/dL POC Whole Bld Glucose 97 99 124 H (70 - 100) mg/dL Calcium (8.5-10.3) mg/dL Phosphorus (2.5-4.6) mg/dL Magnesium (1.7-2.8) mg/dL Total Bilirubin (0.2-1.0) mg/dL AST (10-42) IU/L ALT (10-60) IU/L Alkaline Phosphatase (42-121) IU/L B-Natriuretic Peptide (5-100) pg/mL Total Protein (6.7-8.2) g/dL Albumin (3.2-5.5) g/dL Globulin (2.1-4.2) g/dL Albumin/Globulin Ratio (1.0-2.2) 01/12/17 01/12/17 01/12/17 Range/Units 15:04 14:05 13:45 WBC (4.8-10.8) x10^3/uL RBC (4.20-5.40) 10^6/uL Hgb (12.0-16.0) g/dL Hct (37.0-47.0) % MCV (81.0-99.0) fL MCH (27.0-31.0) pg MCHC (32.0-36.0) g/dL RDW (12.0-15.0) % Plt Count (130-450) 10^3/uL MPV (7.9-10.8) fL Neut # (1.5-6.6) 10^3/uL Lymph # (1.5-3.5) 10^3/uL Ralls # (0.0-1.0) 10^3/uL Eos # (0.0-0.7) 10^3/uL Baso # (0.0-0.1) 10^3/uL Absolute Nucleated RBC x10^3/uL Nucleated RBCs /100WBC Sodium (135-145) mmol/L Potassium 3.7 (3.5-5.0) mmol/L Chloride (101-111) mmol/L Carbon Dioxide (21-32) mmol/L Anion Gap (6-13) BUN (6-20) mg/dL Creatinine (0.4-1.0) mg/dL Estimated GFR (MDRD) (>89) Glucose (70-100) mg/dL POC Whole Bld Glucose 126 H 121 H (70 - 100) mg/dL Calcium (8.5-10.3) mg/dL Phosphorus (2.5-4.6) mg/dL Magnesium (1.7-2.8) mg/dL Total Bilirubin (0.2-1.0) mg/dL AST (10-42) IU/L ALT (10-60) IU/L Alkaline Phosphatase (42-121) IU/L B-Natriuretic Peptide (5-100) pg/mL Total Protein (6.7-8.2) g/dL Albumin (3.2-5.5) g/dL Globulin (2.1-4.2) g/dL Albumin/Globulin Ratio (1.0-2.2) 01/12/ Range/Units 12:57 WBC (4.8-10.8) x10^3/uL RBC (4.20-5.40) 10^6/uL Hgb (12.0-16.0) g/dL Hct (37.0-47.0) % MCV (81.0-99.0) fL MCH (27.0-31.0) pg MCHC (32.0-36.0) g/dL RDW (12.0-15.0) % Plt Count (130-450) 10^3/uL MPV (7.9-10.8) fL Neut # (1.5-6.6) 10^3/uL Lymph # (1.5-3.5) 10^3/uL Ralls # (0.0-1.0) 10^3/uL Eos # (0.0-0.7) 10^3/uL Baso # (0.0-0.1) 10^3/uL Absolute Nucleated RBC x10^3/uL Nucleated RBCs /100WBC Sodium (135-145) mmol/L Potassium (3.5-5.0) mmol/L Chloride (101-111) mmol/L Carbon Dioxide (21-32) mmol/L Anion Gap (6-13) BUN (6-20) mg/dL Creatinine (0.4-1.0) mg/dL Estimated GFR (MDRD) (>89) Glucose (70-100) mg/dL POC Whole Bld Glucose 126 H (70 - 100) mg/dL Calcium (8.5-10.3) mg/dL Phosphorus (2.5-4.6) mg/dL Magnesium (1.7-2.8) mg/dL Total Bilirubin (0.2-1.0) mg/dL AST (10-42) IU/L ALT (10-60) IU/L Alkaline Phosphatase (42-121) IU/L B-Natriuretic Peptide (5-100) pg/mL Total Protein (6.7-8.2) g/dL Albumin (3.2-5.5) g/dL Globulin (2.1-4.2) g/dL Albumin/Globulin Ratio (1.0-2.2) Assessment/Plan - Problem List (1) Suicide attempt by beta michael overdose Impression: Patient presents to the emergency department after taking 30-40 pills of metoprolol tartrate 25 mg On presentation patient was not bradycardic but was hypotensive and did not respond to 3 L of IV fluid therefore was placed on levophed Poison control was called and they recommended high dose insulin drip, D. 10, IV calcium and glucagon IV. Now over 24 hours and tachycardic, BP stable enough that urine output is brisk ( she initialy had no UOP) Plan: stop levophed stop insulin drip continue to monitor in ICU for now. may acutally need betablocker dose to slow rate. Qualifiers: Encounter type: initial encounter Qualified Code(s): T44.7X2A - Poisoning by beta-adrenoreceptor antagonists, intentional self-harm, initial encounter (2) Calcium channel michael overdose Conclusion/Plan: Patient presents to the emergency department after taking 30-40 pills of amlodipine 2.5 mg in an attempted suicide On presentation patient was not bradycardic but was hypotensive and did not respond to 3 L of IV fluid therefore was placed on levophed Poison control was called and they recommended high dose insulin drip, D. 10, IV calcium and glucagon IV Plan: stop levophed and insulin drips. continue to monitor (3) Hypotension due to medication Conclusion/Plan: Admitted to the ICU with a central line on levophed drip Treat for calcium channel michael and beta michael overdose as above BP has rebounded enough that urine output is brisk. Now off levophed and BP is between 80-110 systolic. Monitor and resume levo if BP stays consistently <80. (4) Depression with suicidal ideation Conclusion/Plan: Patient presented to ED for attempted suicide with beta blockers and calcium channel blockers She has been depressed for the last month but the night of admission decided she no longer wanted to live She has been going through a divorce but patient states it is more than just that She is not on any anti depressants She has attempted suicide once before 6-7 years ago She is not happy at having to be evaluated and insists that it isn't necessary Plan: Stabilize medically Social work and CDP consults today (5) Alcohol abuse Conclusion/Plan: Patient has history of alcohol abuse but has cut down on alcohol use recently She has never gone through DTs but did drink 1/2 gallon of vodka a day at one point Patient did drink prior to coming to hospital Patient counselled Will place on CIWA if she begins to withdraw and has tremors today but not hypertensive. not anxious. So far not needed. (6) Tobacco abuse Conclusion/Plan: Patient smokes 1/2 pack to 1PPD She was counselled She will be given nicotine patch if needed So far not requested or needed (7) Methamphetamine abuse Conclusion/Plan: Patient denied use but positive of UTox Counselled Will watch for withdrawal (8) Cocaine abuse Conclusion/Plan: Patient denied use but positive on Utox Will be counselled Consult social work (9) Hyperlipidemia Conclusion/Plan: Continue lipitor (10) Prophylactic use of low molecular weight heparin for venous thromboembolism Conclusion/Plan: Place on lovenox (11) UTI with Raoultella Pl[place]ola. Sensitive to Rocephin. will continue. Day #2. (12) Pneumonia. On rocephin and azithromycin. Day #2 Qualifiers: Encounter type: subsequent encounter Qualified Code(s): T44.7X2D - Poisoning by beta-adrenoreceptor antagonists, intentional self-harm, subsequent encounter
[2017-01-13] MEDS: AZITHROMYCIN 250 MG TABLET PO SCH (17:08)
[2017-01-13] MEDS ORDERED: guaiFENesin 100 MG/5 ML UDC PO PRN (20:57)
[2017-01-13] MEDS: ATORVASTATIN 10 MG TABLET PO SCH (21:17)
[2017-01-13] MEDS: METOPROLOL TARTRATE 50 MG TABLET PO SCH (21:17)
[2017-01-13] MEDS ORDERED: ZINC OXIDE 20% OINT 28.35 GM TUBE TOP PRN (23:50)
[2017-01-14] MEDS ORDERED: ZINC OXIDE 20% OINT 28.35 GM TUBE TOP PRN (00:11)
[2017-01-14] MEDS ORDERED: SODIUM CHLORIDE 0.9% 500 ML IV ONE (00:21)
[2017-01-14] MEDS ORDERED: LOPERAMIDE 2 MG CAPSULE PO PRN (00:23)
[2017-01-14] MEDS: SODIUM CHLORIDE FLUSH 0.9% 10 ML SYRINGE IVP SCH ×4 (00:28→22:48)
[2017-01-14] MEDS: LACTOB/S.THERMOPHL/BIFIDO CAPSULE PO SCH ×3 (00:49→17:20)
[2017-01-14] MEDS ORDERED: SODIUM CHLORIDE 0.9% 500 ML IV SCH (01:52)
[2017-01-14] MEDS: SODIUM CHLORIDE 0.9% 1,000 ML IV SCH ×3 (02:36→10:38)
[2017-01-14] MEDS: POTASSIUM CHLORIDE 20 MEQ TABLET PO SCH ×4 (06:04→22:59)
[2017-01-14] MEDS: SODIUM CHLORIDE FLUSH 0.9% 10 ML SYRINGE IVP PRN (06:05)
[2017-01-14 06:13] LABS: BASOPHILS % (AUTO) 0.2 %; HGB - HEMOGLOBIN 10.7 g/dL (12.0-16.0); LYMPHOCYTES # (AUTO) 0.6 10^3/uL (1.5-3.5); LYMPHOCYTES % (AUTO) 7.1 %; MEAN CORPUSCULAR HGB CONC 33.4 g/dL (32.0-36.0); MEAN CORPUSCULAR VOLUME 101.6 fL (81.0-99.0); MEAN PLATELET VOLUME 8.8 fL (7.9-10.8); MONOCYTES # (AUTO) 0.6 10^3/uL (0.0-1.0); MONOCYTES % (AUTO) 7.1 %; NEUTROPHILS # (AUTO) 7.8 10^3/uL (1.5-6.6); NEUTROPHILS % (AUTO) 85.6 %; NUCLEATED RED BLOOD CELLS AUTO 0.1 /100WBC; RED BLOOD COUNT 3.15 10^6/uL (4.20-5.40); RED CELL DISTRIBUTION WIDTH 17.5 % (12.0-15.0); UNCORRECTED WHITE BLOOD COUNT 9.1 x10^3/uL; WHITE BLOOD COUNT 9.1 x10^3/uL (4.8-10.8)
[2017-01-14 06:27] LABS: ALBUMIN/GLOBULIN RATIO 0.9 (1.0-2.2); BILIRUBIN,TOTAL 1.3 mg/dL (0.2-1.0); BUN - BLOOD UREA NITROGEN < 5 mg/dL (6-20); CALCIUM 7.9 mg/dL (8.5-10.3); CARBON DIOXIDE - CO2 22 mmol/L (21-32); CHLORIDE 101 mmol/L (101-111); CREATININE 0.3 mg/dL (0.4-1.0); GFR - MDRD 237 (>89); GLUCOSE 123 mg/dL (70-100); MAGNESIUM 1.8 mg/dL (1.7-2.8); PHOSPHORUS 2.9 mg/dL (2.5-4.6); POTASSIUM 5.1 mmol/L (3.5-5.0); SODIUM 129 mmol/L (135-145); TOTAL PROTEIN 5.1 g/dL (6.7-8.2)
--- NOTE | 2017-01-14 07:42 | XRAY Preliminary Report ---
Exam: XR Chest 1 View IMPRESSION: Rapidly developing edema with small effusions and developing consolidation at left base. [facility] SITE ID: [id number]
--- NOTE | 2017-01-14 07:45 | XRAY Report ---
EXAM: CHEST RADIOGRAPHY EXAM DATE: 01/14/2017 07:16 AM. CLINICAL HISTORY: Hypoxia. COMPARISON: 01/13/2017. TECHNIQUE: 1 view. FINDINGS: Lungs/Pleura: 2 views hazy infiltration throughout both lungs, much increased, with some septal lines . Developing consolidation in the left base. Small pleural effusions. No pneumothorax. Mediastinum: Mild cardiovascular fullness, increased. Other: Right central line and other findings as previously noted. IMPRESSION: Rapidly developing edema with small effusions and developing consolidation at left base. [facility] Referring Provider Line: [phone] SITE ID: [id number]
[2017-01-14] MEDS: cefTRIAXone 1 GM in SODIUM CHLORIDE 0.9% MINIBAG 100 ML IV SCH (08:31)
[2017-01-14] MEDS: AZITHROMYCIN 250 MG TABLET PO SCH (08:31)
[2017-01-14] MEDS: ENOXAPARIN 40 MG/0.4 ML SYRINGE SUBQ SCH (08:32)
[2017-01-14] MEDS: NICOTINE 14 MG PATCH TOP SCH (08:36)
[2017-01-14] MEDS ORDERED: AZITHROMYCIN 250 MG TABLET PO SCH (09:00)
[2017-01-14] MEDS: METOPROLOL TARTRATE 50 MG TABLET PO SCH ×2 (09:13→21:03)
[2017-01-14] MEDS ORDERED: IBUPROFEN 600 MG TABLET PO PRN (10:30)
[2017-01-14] MEDS ORDERED: BENZONATATE 100 MG CAPSULE PO PRN (10:30)
--- NOTE | 2017-01-14 10:35 | PROVIDER PROGRESS NOTE ---
Subjective - Prog Note Date Prog Note Date: 01/14/17 Prog Note Time: 10:33 - Subjective Pt reports feeling: Worse Subjective: she had emesis this am, witnessed aspiration. dropped her O2 sats and now on 15 liters and comfortable. No fever but c/o INGRAM and wants advil since APAP doesn't work for her. she is off all IVF and IV drips but her labs this am show hyponatremia. Current Medications - Current Medications Current Medications: Active Medications Acetaminophen (Tylenol) 650 mg PO Q4HR PRN PRN Reason: Pain 1 to 4 Albuterol () 2.5 mg INH RTQ4H PRN PRN Reason: Wheezing Atorvastatin Calcium (Lipitor) 10 mg PO QPM [facility] Last Admin: 01/13/17 21:17 Dose: 10 mg Azithromycin (Zithromax) 250 mg PO DAILY [facility] Last Admin: 01/14/17 08:31 Dose: 250 mg Benzonatate (Tessalon) 100 mg PO TID PRN PRN Reason: Cough Enoxaparin Sodium (Lovenox) 40 mg SUBQ DAILY [facility] Last Admin: 01/14/17 08:32 Dose: 40 mg Guaifenesin (Robitussin Liquid) 100 mg PO Q6HR PRN PRN Reason: Cough Last Admin: 01/13/17 21:17 Dose: 100 mg Heparin Sodium (Beef Lung) () 30 - 50 unit IVP ONCE PRN PRN Reason: Central Line Protocol (<24 hr) Stop: 02/11/17 22:25 Last Admin: 01/14/17 06:04 Dose: 60 unit Ceftriaxone Sodium 1 gm/ (Sodium Chloride) 100 mls @ 200 mls/hr IV DAILY [facility] Last Admin: 01/14/17 08:31 Dose: 200 mls/hr Sodium Chloride (Normal Saline 0.9%) 1,000 mls @ 150 mls/hr IV .Q6H40M [facility] Last Admin: 01/14/17 10:01 Dose: 150 mls/hr Sodium Chloride (Normal Saline 0.9%) 1,000 mls @ 125 mls/hr IV .Q8H [facility] Ibuprofen (Motrin) 600 mg PO Q6HR PRN PRN Reason: HEADACHE Lactobacil/Bifidobact/Streptococcus (Vsl#3) 1 cap PO BIDWM [facility] Last Admin: 01/14/17 08:31 Dose: 1 cap Loperamide HCl (Imodium) 2 mg PO QID PRN PRN Reason: Diarrhea Last Admin: 01/14/17 00:49 Dose: 2 mg Metoprolol Tartrate (Lopressor) 50 mg PO BID [facility] Multi-Ingredient Ointment (Zinc Oxide) 1 applic TOP PRN PRN PRN Reason: Skin Care Last Admin: 01/14/17 02:48 Dose: 1 applic Nicotine (Nicoderm) 1 patch TOP DAILY [facility] Last Admin: 01/14/17 08:36 Dose: Not Given Ondansetron HCl (Zofran Inj) 4 mg IVP Q6HR PRN PRN Reason: Nausea / Vomiting Last Admin: 01/13/17 16:16 Dose: 4 mg Potassium Chloride (K-Dur) 20 meq PO TID [facility] Last Admin: 01/14/17 07:38 Dose: Not Given Prochlorperazine Edisylate (Compazine Inj) 10 mg IVP Q6HR PRN PRN Reason: Nausea / Vomiting Sodium Chloride (Normal Saline Flush 0.9%) 10 ml IVP PRN PRN PRN Reason: NEEDED PER PROVIDER ORDERS Last Admin: 01/14/17 06:05 Dose: 20 ml Sodium Chloride (Normal Saline Flush 0.9%) 10 ml IVP Q8HR [facility] Last Admin: 01/14/17 06:05 Dose: 10 ml Atorvastatin [Lipitor] 10 mg ORAL QPM 01/14/16 Amlodipine Besylate [Amlodipine Besylate] 2.5 mg PO DAILY 01/12/17 Metoprolol Tartrate [Metoprolol Tartrate] 50 mg PO BID 01/12/17 Objective - Vital Signs/Intake & Output Reviewed Vital Signs: Yes Vital Signs: Vital Signs x48h Temp Pulse Resp BP BP Pulse Ox 01/14/17 10:00 116 H 24 103/63 91 L 01/14/17 09:13 105/66 01/14/17 09:00 115 H 30 H 105/66 92 01/14/17 08:00 105 H 33 H 108/75 97 01/14/17 07:37 36.9 C 104 H 34 H 103/70 93 01/14/17 07:00 96 36 H 101/72 87 L 01/14/17 06:00 94 17 82/36 L 95 01/14/17 05:05 95 35 H 103/67 95 01/14/17 04:05 94 34 H 86/63 L 94 01/14/17 03:54 36.8 C 01/14/17 03:05 94 33 H 101/71 96 Intake & Output: Intake & Output 01/11/17 01/12/17 01/13/17 01/14/17 23:59 23:59 23:59 23:59 Intake Total 9379 4929 2160 Output Total 2970 2900 750 Balance 6409 2029 1410 - Objective General Appearance: positive: Alert, Mild distress, Other (voice hoarse) Eyes Bilateral: positive: PERRL, EOMI ENT: positive: Pharynx nml Neck: positive: No JVD. negative: Stiff neck, Carotid bruit Respiratory: positive: Chest non-tender, Rhonchi. negative: Wheezes, Rales Cardiovascular: positive: Tachycardia (she received metoprolol yesterday and dropped her pressure). negative: Gallop/S4 Abdomen: positive: Non-tender, No organomegaly, Nml bowel sounds, No distention Extremities: positive: Non-tender, No pedal edema Neurologic/Psychiatric: positive: Oriented x3, CN's nml (2-12), Motor nml, Depressed mood/affect - Lab Results Fish Bones: 01/14/17 05:40 01/14/17 05:40 Other Labs: Lab Results x24hrs 01/14/17 01/14/17 01/13/17 Range/Units 05:40 05:40 23:30 WBC 9.1 (4.8-10.8) x10^3/uL RBC 3.15 L (4.20-5.40) 10^6/uL Hgb 10.7 L (12.0-16.0) g/dL Hct 32.0 L (37.0-47.0) % MCV 101.6 H (81.0-99.0) fL MCH 34.0 H (27.0-31.0) pg MCHC 33.4 (32.0-36.0) g/dL RDW 17.5 H (12.0-15.0) % Plt Count 152 (130-450) 10^3/uL MPV 8.8 (7.9-10.8) fL Neut # 7.8 H (1.5-6.6) 10^3/uL Lymph # 0.6 L (1.5-3.5) 10^3/uL Fleming # 0.6 (0.0-1.0) 10^3/uL Eos # 0.0 (0.0-0.7) 10^3/uL Baso # 0.0 (0.0-0.1) 10^3/uL Absolute Nucleated RBC 0.01 x10^3/uL Nucleated RBCs 0.1 /100WBC Sodium 129 L (135-145) mmol/L Potassium 5.1 H (3.5-5.0) mmol/L Chloride 101 (101-111) mmol/L Carbon Dioxide 22 (21-32) mmol/L Anion Gap 6.0 (6-13) BUN < 5 L (6-20) mg/dL Creatinine 0.3 L (0.4-1.0) mg/dL Estimated GFR (MDRD) 237 (>89) Glucose 123 H (70-100) mg/dL POC Whole Bld Glucose (70 - 100) mg/dL Calcium 7.9 L (8.5-10.3) mg/dL Phosphorus 2.9 (2.5-4.6) mg/dL Magnesium 1.8 (1.7-2.8) mg/dL Total Bilirubin 1.3 H (0.2-1.0) mg/dL AST 205 H (10-42) IU/L ALT 166 H (10-60) IU/L Alkaline Phosphatase 60 (42-121) IU/L Total Protein 5.1 L (6.7-8.2) g/dL Albumin 2.4 L (3.2-5.5) g/dL Globulin 2.7 (2.1-4.2) g/dL Albumin/Globulin Ratio 0.9 L (1.0-2.2) Stool Leukocytes, Qual NEGATIVE (Negative) 01/13/17 01/13/17 01/13/17 Range/Units 19:49 19:14 18:24 WBC (4.8-10.8) x10^3/uL RBC (4.20-5.40) 10^6/uL Hgb (12.0-16.0) g/dL Hct (37.0-47.0) % MCV (81.0-99.0) fL MCH (27.0-31.0) pg MCHC (32.0-36.0) g/dL RDW (12.0-15.0) % Plt Count (130-450) 10^3/uL MPV (7.9-10.8) fL Neut # (1.5-6.6) 10^3/uL Lymph # (1.5-3.5) 10^3/uL Fleming # (0.0-1.0) 10^3/uL Eos # (0.0-0.7) 10^3/uL Baso # (0.0-0.1) 10^3/uL Absolute Nucleated RBC x10^3/uL Nucleated RBCs /100WBC Sodium (135-145) mmol/L Potassium (3.5-5.0) mmol/L Chloride (101-111) mmol/L Carbon Dioxide (21-32) mmol/L Anion Gap (6-13) BUN (6-20) mg/dL Creatinine (0.4-1.0) mg/dL Estimated GFR (MDRD) (>89) Glucose (70-100) mg/dL POC Whole Bld Glucose 124 H 109 H 107 H (70 - 100) mg/dL Calcium (8.5-10.3) mg/dL Phosphorus (2.5-4.6) mg/dL Magnesium (1.7-2.8) mg/dL Total Bilirubin (0.2-1.0) mg/dL AST (10-42) IU/L ALT (10-60) IU/L Alkaline Phosphatase (42-121) IU/L Total Protein (6.7-8.2) g/dL Albumin (3.2-5.5) g/dL Globulin (2.1-4.2) g/dL Albumin/Globulin Ratio (1.0-2.2) Stool Leukocytes, Qual (Negative) 01/13/17 01/13/17 01/13/17 Range/Units 16:15 13:55 12:54 WBC (4.8-10.8) x10^3/uL RBC (4.20-5.40) 10^6/uL Hgb (12.0-16.0) g/dL Hct (37.0-47.0) % MCV (81.0-99.0) fL MCH (27.0-31.0) pg MCHC (32.0-36.0) g/dL RDW (12.0-15.0) % Plt Count (130-450) 10^3/uL MPV (7.9-10.8) fL Neut # (1.5-6.6) 10^3/uL Lymph # (1.5-3.5) 10^3/uL Fleming # (0.0-1.0) 10^3/uL Eos # (0.0-0.7) 10^3/uL Baso # (0.0-0.1) 10^3/uL Absolute Nucleated RBC x10^3/uL Nucleated RBCs /100WBC Sodium (135-145) mmol/L Potassium (3.5-5.0) mmol/L Chloride (101-111) mmol/L Carbon Dioxide (21-32) mmol/L Anion Gap (6-13) BUN (6-20) mg/dL Creatinine (0.4-1.0) mg/dL Estimated GFR (MDRD) (>89) Glucose (70-100) mg/dL POC Whole Bld Glucose 145 H 185 H 166 H (70 - 100) mg/dL Calcium (8.5-10.3) mg/dL Phosphorus (2.5-4.6) mg/dL Magnesium (1.7-2.8) mg/dL Total Bilirubin (0.2-1.0) mg/dL AST (10-42) IU/L ALT (10-60) IU/L Alkaline Phosphatase (42-121) IU/L Total Protein (6.7-8.2) g/dL Albumin (3.2-5.5) g/dL Globulin (2.1-4.2) g/dL Albumin/Globulin Ratio (1.0-2.2) Stool Leukocytes, Qual (Negative) 01/13/17 01/13/17 Range/Units 11:56 10:47 WBC (4.8-10.8) x10^3/uL RBC (4.20-5.40) 10^6/uL Hgb (12.0-16.0) g/dL Hct (37.0-47.0) % MCV (81.0-99.0) fL MCH (27.0-31.0) pg MCHC (32.0-36.0) g/dL RDW (12.0-15.0) % Plt Count (130-450) 10^3/uL MPV (7.9-10.8) fL Neut # (1.5-6.6) 10^3/uL Lymph # (1.5-3.5) 10^3/uL Fleming # (0.0-1.0) 10^3/uL Eos # (0.0-0.7) 10^3/uL Baso # (0.0-0.1) 10^3/uL Absolute Nucleated RBC x10^3/uL Nucleated RBCs /100WBC Sodium (135-145) mmol/L Potassium (3.5-5.0) mmol/L Chloride (101-111) mmol/L Carbon Dioxide (21-32) mmol/L Anion Gap (6-13) BUN (6-20) mg/dL Creatinine (0.4-1.0) mg/dL Estimated GFR (MDRD) (>89) Glucose (70-100) mg/dL POC Whole Bld Glucose 150 H 124 H (70 - 100) mg/dL Calcium (8.5-10.3) mg/dL Phosphorus (2.5-4.6) mg/dL Magnesium (1.7-2.8) mg/dL Total Bilirubin (0.2-1.0) mg/dL AST (10-42) IU/L ALT (10-60) IU/L Alkaline Phosphatase (42-121) IU/L Total Protein (6.7-8.2) g/dL Albumin (3.2-5.5) g/dL Globulin (2.1-4.2) g/dL Albumin/Globulin Ratio (1.0-2.2) Stool Leukocytes, Qual (Negative) Assessment/Plan - Problem List (1) Suicide attempt by beta michael overdose Impression: and calcium channel michael. Placed in ICU on insulin drip for the betablocker and levophed for the hypotension. Off those 01/13 with resultant rebound tachycardia and continued mild baseline hypotension with systolic high 80's to high 90's and adequate urine output. Intolerant of even low dose betablocker for now. she is not happy that she will be evaluated for the suicide attempt. Insists she can go home and not need help or followup. will need social service eval when medically cleared. right now with #2, can't be cleared. Qualifiers: Encounter type: subsequent encounter Qualified Code(s): T44.7X2D - Poisoning by beta-adrenoreceptor antagonists, intentional self-harm, subsequent encounter (3) Aspiration pneumonia due to gastric secretions Impression: check chest xray. continue O2. already on abx for other pneumonia as in #3. Qualifiers: Laterality: unspecified laterality
[2017-01-14] MEDS: FUROSEMIDE 20 MG/2 ML VIAL IVP SCH (13:00)
[2017-01-14] MEDS ORDERED: IOPAMIDOL-300 100 ML VIAL IVP ONE (16:21)
[2017-01-14] MEDS ORDERED: FUROSEMIDE 20 MG/2 ML VIAL IVP STA (16:31)
--- NOTE | 2017-01-14 16:42 | CT Preliminary Report ---
Exam: CT Chest Angio (PE) IMPRESSION: 1. No large pulmonary emboli identified, with poor opacification of peripheral pulmonary arteries. 2. No aortic aneurysm or dissection. 3. Small bilateral pleural effusions with extensive patchy groundglass infiltrates throughout the yoli gs. [facility] SITE ID: [id number]
--- NOTE | 2017-01-14 16:45 | CT Report ---
EXAM: CT ANGIOGRAM CHEST EXAM DATE: 01/14/2017 04:26 PM. CLINICAL HISTORY: Hypoxia. COMPARISON: None. TECHNIQUE: Routine helical imaging was performed through the chest in the pulmonary arterial phase. I V Contrast: 100 cc of Isovue-300. Reconstructions: Coronal 3-D MIP reconstructions.Sagittal and coron al. In accordance with CT protocol optimization, one or more of the following dose reduction techniques w ere utilized for this exam: automated exposure control, adjustment of mA and/or KV based on patient s ize, or use of iterative reconstructive technique. FINDINGS: Pulmonary Arteries: Diagnostic quality: Suboptimal through the segmental arteries. No evidence for large acute or chronic pulmonary emboli. RV/LV is within normal limits. There is no interventricular septal bowing. There is no reflux of cont rast material in the IVC. Lungs/Pleura: Small bilateral pleural effusions with extensive patchy groundglass infiltrates through out the lungs. Mediastinum: Normal. No cardiac enlargement or adenopathy. Thoracic Aorta: Unremarkable. Upper Abdomen: Diffuse liver low density noted. Other: None. IMPRESSION: 1. No large pulmonary emboli identified, with poor opacification of peripheral pulmonary arteries. 2. No aortic aneurysm or dissection. 3. Small bilateral pleural effusions with extensive patchy groundglass infiltrates throughout the yoli gs. [facility] Referring Provider Line: [phone] SITE ID: [id number]
[2017-01-14 17:01] LABS: ABG ANALYSIS TIME 1700; ABG BASE EXCESS -4.2 mmol/L (-2.0-3.0); ABG PCO2 45 mmHg (34-45); ABG PH 7.31 (7.35-7.45); ABG SITE OF DRAW RIGHT RADIAL; ABG TCO2 23.3 MMOL/L (21.0-29.0); ALLEN TEST POSITIVE
[2017-01-14 17:02] LABS: ABG O2 DEVICE NON REBREATHER MASK; ABG SATURATION PULSE OXIMETRY% 75 %
[2017-01-14 17:04] LABS: ABG OXYGEN SATURATION 71 % (94-98); ABG PO2 39 mmHg (80-100)
[2017-01-14] MEDS: CLINDAMYCIN INJ 300 MG in SODIUM CHLORIDE 0.9% 50 ML IV SCH (18:28)
[2017-01-14] MEDS ORDERED: HALOPERIDOL 5 MG/ML VIAL ONE (18:38)
[2017-01-14] MEDS ORDERED: HALOPERIDOL 5 MG/ML VIAL IVP ONE (18:38)
[2017-01-14] MEDS: LORazepam 2 MG/ML SYRINGE IVP PRN ×2 (18:41→23:39)
[2017-01-14] MEDS ORDERED: HALOPERIDOL 5 MG/ML VIAL IVP SCH (18:50)
[2017-01-14] MEDS: ATORVASTATIN 10 MG TABLET PO SCH (21:02)
[2017-01-14] MEDS: CHLORHEXIDINE GLUCONATE 15 ML UDC PO SCH (21:03)
[2017-01-14] MEDS: DEXMEDETOMIDINE 400 MCG/100 ML 100 ML IV SCH (21:25)
[2017-01-14] MEDS: DEXMEDETOMIDINE 400 MCG/100 ML 100 ML IV ONE ×2 (21:25→22:50)
[2017-01-14] MEDS ORDERED: PROPOFOL 1000 MG/100 ML 100 ML IV ONE (21:26)
[2017-01-14] MEDS ORDERED: KETAMINE 500 MG/10 ML VIAL ONE (21:30)
[2017-01-14] MEDS ORDERED: ROCURONIUM 50 MG/5 ML VIAL IVP ONE ×2 (21:31→22:13)
[2017-01-14] MEDS ORDERED: KETAMINE 500 MG/10 ML VIAL IVP STA (22:13)
[2017-01-14] MEDS ORDERED: LIDOCAINE-PF 4% 5 ML AMP SUBQ SCH (22:14)
[2017-01-14] MEDS ORDERED: IPRATROPIUM/ALBUTEROL 3 ML NEB INH PRN (22:15)
[2017-01-14] MEDS ORDERED: SODIUM CHLORIDE 0.9% 1,000 ML IV SCH (22:20)
--- NOTE | 2017-01-14 22:20 | ED Physician Documentation ---
ED Addendum - Addendum Addendum: 01/14/17 22:15 Called to ICU to intubate for resp distress, not improving on BiPap by Dr. Combs. Because her O2 sats were only up to 90-91% on 100% FiO2 on Bipap, it was decided to perform dissociated intubation. 4% lidocaine was nebulized with the bipap. Then 120mg of ketamine IV was given. when this took effect, the glidescope was inserted with a clear view of the cords, but jaw clamping. Glidescope was removed and rocuronium 50mg IV was given. The glidescope was then reinserted with a size 4 blade and a 7.5 ETT was passed through the cords. Balloon inflated. Equal BS bilaterally and O2 sats improved to 96%. CXR ordered and will be reviewed by the hospitalist. Medication and post intubation sedation will be ordered by Dr. Combs. 01/14/17 22:38 Reviewed cxr - advance ETT 2cm. Notified RT Sally.
--- NOTE | 2017-01-14 22:44 | XRAY Preliminary Report ---
Exam: XR Chest 1 View IMPRESSION: 1. Worsening bilateral coarse pulmonary infiltrates except for the left base where there is clearing of previous opacity. 2. Small pleural effusions. 3. Normal heart size. 4. ET tube 6 cm from the sonny and NG tube to mid stomach. [facility] SITE ID: [id number]
--- NOTE | 2017-01-14 22:46 | XRAY Report ---
EXAM: CHEST RADIOGRAPHY EXAM DATE: 01/14/2017 10:35 PM. CLINICAL HISTORY: Patient intubated and NG placed. COMPARISON: Today at 0717. TECHNIQUE: 1 view. FINDINGS: Lungs/Pleura: Coarse haziness throughout the lungs, slightly worse, except for at T left base where t here is definite improvement. Small effusions. No pneumothorax. Mediastinum: Normal heart size. Other: Stable right IJ line. ET tube placed, about 6 cm from the sonny. NG tube tip in the mid stoma ch. IMPRESSION: 1. Worsening bilateral coarse pulmonary infiltrates except for the left base where there is clearing of previous opacity. 2. Small pleural effusions. 3. Normal heart size. 4. ET tube 6 cm from the sonny and NG tube to mid stomach. [facility] Referring Provider Line: [phone] SITE ID: [id number]
[2017-01-14] MEDS ORDERED: ROCURONIUM 50 MG/5 ML VIAL IVP SCH (22:49)
[2017-01-14] MEDS ORDERED: KETAMINE 500 MG/10 ML VIAL IVP SCH (22:51)
[2017-01-14] MEDS ORDERED: PROPOFOL 1000 MG/100 ML 100 ML IV SCH (23:00)
[2017-01-14 23:14] LABS: ABG ANALYSIS TIME 2313
[2017-01-14 23:15] LABS: ABG BASE EXCESS -7.3 mmol/L (-2.0-3.0); ABG HCO3 24.1 mmol/L (22.0-26.0); ABG OXYGEN SATURATION 98 % (94-98); ABG PO2 135 mmHg (80-100); ABG TCO2 26.6 MMOL/L (21.0-29.0)
[2017-01-14 23:16] LABS: ABG O2 DEVICE VENTILATOR; ABG SATURATION PULSE OXIMETRY% 98 %; ABG SITE OF DRAW 2300; ALLEN TEST POSITIVE
[2017-01-14 23:17] LABS: ABG MODE OF VENTILATION ACCESSED/CONTROL; ABG PEAK END EXPIRATORY PRESSU 20 cmH2O; ABG PRESSURE SUPPORT VENT 0 cmH2O; ABG RESPIRATORY RATE 24 b/min
[2017-01-14 23:20] LABS: ABG PH 7.09 (7.35-7.45)
[2017-01-14 23:21] LABS: ABG PCO2 82 mmHg (34-45)
[2017-01-15] MEDS: MORPHINE 2 MG/ML SYRINGE IVP PRN ×2 (00:01→05:57)
[2017-01-15] MEDS: SODIUM CHLORIDE 0.9% 1,000 ML IV SCH ×3 (00:10→14:48)
[2017-01-15] MEDS ORDERED: SODIUM CHLORIDE 0.9% 1,000 ML IV ONE (00:25)
[2017-01-15] MEDS: CLINDAMYCIN INJ 300 MG in SODIUM CHLORIDE 0.9% 50 ML IV SCH (00:32)
[2017-01-15 00:53] LABS: BASOPHILS % (AUTO) 0.2 %; EOSINOPHILS % (AUTO) 0.1 %; HCT - HEMATOCRIT 30.4 % (37.0-47.0); HGB - HEMOGLOBIN 10.2 g/dL (12.0-16.0); LYMPHOCYTES # (AUTO) 0.3 10^3/uL (1.5-3.5); MEAN CORPUSCULAR HEMOGLOBIN 33.8 pg (27.0-31.0); MEAN CORPUSCULAR HGB CONC 33.7 g/dL (32.0-36.0); MEAN CORPUSCULAR VOLUME 100.3 fL (81.0-99.0); MONOCYTES # (AUTO) 0.2 10^3/uL (0.0-1.0); MONOCYTES % (AUTO) 3.1 %; NEUTROPHILS # (AUTO) 7.2 10^3/uL (1.5-6.6); NEUTROPHILS % (AUTO) 92.6 %; NUCLEATED RED BLOOD CELLS AUTO 0.1 /100WBC; RED BLOOD COUNT 3.03 10^6/uL (4.20-5.40); RED CELL DISTRIBUTION WIDTH 17.1 % (12.0-15.0); UNCORRECTED WHITE BLOOD COUNT 7.8 x10^3/uL; WHITE BLOOD COUNT 7.8 x10^3/uL (4.8-10.8)
[2017-01-15] MEDS ORDERED: VANCOMYCIN PER PHARMACY 1 GM in SODIUM CHLORIDE 0.9% 250 ML IV SCH (01:00)
[2017-01-15 01:07] LABS: ALBUMIN/GLOBULIN RATIO 0.8 (1.0-2.2); BILIRUBIN,TOTAL 0.9 mg/dL (0.2-1.0); BUN - BLOOD UREA NITROGEN 6 mg/dL (6-20); CALCIUM 7.7 mg/dL (8.5-10.3); CARBON DIOXIDE - CO2 26 mmol/L (21-32); CHLORIDE 102 mmol/L (101-111); CREATININE 0.5 mg/dL (0.4-1.0); GFR - MDRD 132 (>89); GLUCOSE 167 mg/dL (70-100); POTASSIUM 4.9 mmol/L (3.5-5.0); SODIUM 132 mmol/L (135-145)
[2017-01-15] MEDS: CLINDAMYCIN 600 MG/50 ML 50 ML IV SCH ×4 (01:11→17:48)
[2017-01-15 01:19] LABS: ABG BASE EXCESS -6.3 mmol/L (-2.0-3.0); ABG HCO3 21.3 mmol/L (22.0-26.0); ABG MODE OF VENTILATION ACCESSED/CONTROL; ABG O2 DEVICE VENTILATOR; ABG OXYGEN SATURATION 97 % (94-98); ABG PCO2 52 mmHg (34-45); ABG PEAK END EXPIRATORY PRESSU 10 cmH2O; ABG PH 7.23 (7.35-7.45); ABG PO2 98 mmHg (80-100); ABG PRESSURE SUPPORT VENT 0 cmH2O; ABG RESPIRATORY RATE 30 b/min; ABG SATURATION PULSE OXIMETRY% 95 %; ABG SITE OF DRAW LEFT RADIAL; ABG TCO2 22.9 MMOL/L (21.0-29.0); ALLEN TEST POSITIVE
[2017-01-15 01:22] LABS: CALCIUM, IONIZED 1.1 mmol/L (1.15-1.33); VBG PH 7.181 (7.31-7.41)
--- NOTE | 2017-01-15 01:33 | PROVIDER PROGRESS NOTE ---
Hospitalist Cross-cover Note - Cross-Cover Note Cross-Cover Note: Patient is a 46-year-old female who presented with suicide attempt with beta michael and calcium channel michael overdose. Since overdose patient has been developing worsening respiratory failure this morning patient appeared to have aspirated and CT angiogram of the chest showed diffuse groundglass opacities concerning for ARDS. Patient was placed on BiPAP as she was hypoxic down to the mid 70s on nonrebreather. Patient's ABG from earlier in the day consistent with ARDS. Patient having increased work of breathing throughout the evening and continuing to pull at BiPAP when mask removed the patient O2 sats dropped immediately into the 70s. The patient appeared to be tiring after a discussion with the patient decision made to intubate the patient. Patient intubated by Dr. Sanchez from the emergency department at around 2200 on 01/14/2017. Postintubation chest x-ray showed ET tube in good position and NG tube in stomach. Patient started on ARDSnet ventilation protocol. Patient developing increased hypotension despite IV fluid boluses placed on Levophed for septic shock. Patient's antibiotics changed from ceftriaxone and azithromycin to vancomycin, cefepime and clindamycin.
[2017-01-15] MEDS: CEFEPIME 2 GM in SODIUM CHLORIDE 0.9% MINIBAG 100 ML IV SCH ×2 (01:36→09:05)
[2017-01-15] MEDS: VANCOMYCIN INJ 1 GM in SODIUM CHLORIDE 0.9% 250 ML IV SCH ×3 (02:30→17:55)
[2017-01-15] MEDS: LORazepam 2 MG/ML SYRINGE IVP PRN ×7 (05:44→18:55)
[2017-01-15] MEDS: DEXMEDETOMIDINE 400 MCG/100 ML 100 ML IV SCH ×3 (05:55→16:58)
[2017-01-15] MEDS: POTASSIUM CHLORIDE 20 MEQ TABLET PO SCH ×2 (06:05→14:06)
[2017-01-15 06:09] LABS: BASOPHILS % (AUTO) 0.1 %; HCT - HEMATOCRIT 32.5 % (37.0-47.0); HGB - HEMOGLOBIN 10.8 g/dL (12.0-16.0); LYMPHOCYTES # (AUTO) 0.3 10^3/uL (1.5-3.5); LYMPHOCYTES % (AUTO) 2.6 %; MEAN CORPUSCULAR HEMOGLOBIN 33.7 pg (27.0-31.0); MEAN CORPUSCULAR HGB CONC 33.2 g/dL (32.0-36.0); MEAN CORPUSCULAR VOLUME 101.6 fL (81.0-99.0); MEAN PLATELET VOLUME 8.6 fL (7.9-10.8); MONOCYTES # (AUTO) 0.3 10^3/uL (0.0-1.0); MONOCYTES % (AUTO) 2.7 %; NEUTROPHILS # (AUTO) 10.7 10^3/uL (1.5-6.6); NEUTROPHILS % (AUTO) 94.6 %; NUCLEATED RED BLOOD CELLS AUTO 0.1 /100WBC; RED CELL DISTRIBUTION WIDTH 17.2 % (12.0-15.0); UNCORRECTED WHITE BLOOD COUNT 11.3 x10^3/uL; WHITE BLOOD COUNT 11.3 x10^3/uL (4.8-10.8)
[2017-01-15 06:32] LABS: ALBUMIN/GLOBULIN RATIO 0.8 (1.0-2.2); CALCIUM 7.8 mg/dL (8.5-10.3); CREATININE 0.4 mg/dL (0.4-1.0); MAGNESIUM 1.6 mg/dL (1.7-2.8); PHOSPHORUS 3.1 mg/dL (2.5-4.6); POTASSIUM 4.8 mmol/L (3.5-5.0); TOTAL PROTEIN 5.4 g/dL (6.7-8.2)
[2017-01-15] MEDS: SODIUM CHLORIDE FLUSH 0.9% 10 ML SYRINGE IVP SCH ×2 (06:57→14:07)
[2017-01-15] MEDS ORDERED: PANTOPRAZOLE 40 MG VIAL IVP SCH (07:00)
[2017-01-15] MEDS ORDERED: POTASSIUM PHOSPHATE 15 MMOL in SODIUM CHLORIDE 0.9% 250 ML IV SCH (08:00)
[2017-01-15] MEDS ORDERED: SODIUM PHOSPHATE 15 MMOL in SODIUM CHLORIDE 0.9% 250 ML IV ONE (08:00)
[2017-01-15 08:08] LABS: ABG BASE EXCESS -5.3 mmol/L (-2.0-3.0); ABG HCO3 21.6 mmol/L (22.0-26.0); ABG OXYGEN SATURATION 97 % (94-98); ABG PCO2 48 mmHg (34-45); ABG PH 7.27 (7.35-7.45); ABG PO2 96 mmHg (80-100); ABG TCO2 23.1 MMOL/L (21.0-29.0); ALLEN TEST POSITIVE
[2017-01-15 08:09] LABS: ABG MODE OF VENTILATION ACCESSED/CONTROL; ABG O2 DEVICE VENTILATOR; ABG RESPIRATORY RATE 30 b/min; ABG SATURATION PULSE OXIMETRY% 99 %; ABG SITE OF DRAW RIGHT RADIAL
[2017-01-15 08:10] LABS: ABG PEAK END EXPIRATORY PRESSU 18 cmH2O
--- NOTE | 2017-01-15 08:14 | XRAY Preliminary Report ---
Exam: XR Chest 1 View IMPRESSION: Mild decreased apical airspace opacities bilaterally. No other significant change in diff use opacities. Lines and tubes remain in satisfactory position. [facility] SITE ID: [id number]
--- NOTE | 2017-01-15 08:16 | XRAY Report ---
EXAM: CHEST RADIOGRAPHY EXAM DATE: 01/15/2017 05:40 AM. CLINICAL HISTORY: Intubated. COMPARISON: None. TECHNIQUE: 1 view. FINDINGS: Lungs/Pleura: Mild relative decrease in airspace opacities in lung apices. Remaining opacities diffus esther in both lungs are persistent. No new consolidation. Small pleural effusions not excluded. Mediastinum: Within exam limitations, cardiomediastinal contour is normal. Other: Endotracheal tube and right IJ central venous line once again seen and unchanged. NG once agai n seen tube in upper abdomen. Tip not included. IMPRESSION: Mild decreased apical airspace opacities bilaterally. No other significant change in diff use opacities. Lines and tubes remain in satisfactory position. [facility] Referring Provider Line: [phone] SITE ID: [id number]
[2017-01-15] MEDS: LACTOB/S.THERMOPHL/BIFIDO CAPSULE PO SCH ×2 (08:17→16:33)
[2017-01-15] MEDS: SODIUM CHLORIDE FLUSH 0.9% 10 ML SYRINGE IVP PRN ×4 (08:24→17:55)
[2017-01-15] MEDS ORDERED: CHLORHEXIDINE GLUCONATE 15 ML UDC PO SCH (09:00)
[2017-01-15] MEDS: ENOXAPARIN 40 MG/0.4 ML SYRINGE SUBQ SCH (09:04)
[2017-01-15] MEDS: FUROSEMIDE 20 MG/2 ML VIAL IVP SCH (09:04)
[2017-01-15] MEDS: METOPROLOL TARTRATE 50 MG TABLET PO SCH (09:05)
[2017-01-15] MEDS: NICOTINE 14 MG PATCH TOP SCH (09:05)
[2017-01-15] MEDS: CHLORHEXIDINE GLUCONATE 15 ML UDC PO SCH (09:05)
[2017-01-15] MEDS ORDERED: MAGNESIUM SULFATE 2 GRAM 50 ML IV ONE (09:18)
[2017-01-15 16:08] LABS: ABG ANALYSIS TIME 1606; ABG HCO3 23.1 mmol/L (22.0-26.0); ABG PCO2 39 mmHg (34-45); ABG PH 7.39 (7.35-7.45); ABG PO2 70 mmHg (80-100)
[2017-01-15 16:09] LABS: ABG BASE EXCESS -1.7 mmol/L (-2.0-3.0); ABG OXYGEN SATURATION 94 % (94-98); ABG SATURATION PULSE OXIMETRY% 96 %; ABG SITE OF DRAW LEFT RADIAL; ABG TCO2 24.3 MMOL/L (21.0-29.0); ALLEN TEST POSITIVE
[2017-01-15 16:10] LABS: ABG MODE OF VENTILATION ACCESSED/CONTROL; ABG PEAK END EXPIRATORY PRESSU 12 cmH2O; ABG RESPIRATORY RATE 40 b/min
[2017-01-15 18:06] VITALS: BP 113/77
--- NOTE | 2017-01-16 07:38 | DISCHARGE SUMMARY ---
DATE OF ADMISSION: 01/12/2017 DATE OF DISCHARGE: 01/15/2017 PRIMARY CARE PROVIDER: Dax Richard M.D. DISCHARGE DIAGNOSES 1. Acute respiratory failure with hypoxia. 2. Adult respiratory distress syndrome. 3. Suicide attempt with beta michael. 4. Suicide attempt with calcium channel michael. 5. Hypotension from medications and respiratory failure requiring Levophed. 6. Depression with suicidal ideation. 7. Polysubstance abuse of alcohol, tobacco, cocaine, methamphetamines. 8. Urinary tract infection with Raoultella planticola. 9. Hyperlipidemia. MEDICATIONS DURING THIS ADMISSION Have been: 1. Rocephin and azithromycin, with clindamycin added for possible aspiration and changed to cefepime , clindamycin, and the day before discharge with vancomycin. 2. DuoNeb. 3. Lipitor. 4. Tessalon Perles. 5. Peridex for mouth care. 6. Lovenox subcutaneous daily. 7. Lasix 20 mg daily IV. 8. Robitussin liquid p.r.n. cough. 9. Motrin 600 mg q.6h. p.r.n. 10. Lactobacillus b.i.d. 11. Ativan 2 mg IV push p.r.n. 12. Lopressor 50 mg p.o. b.i.d. 13. Morphine 2 mg IV push q.1h. p.r.n. 14. Topical barrier ointment zinc oxide. 15. Nicoderm patch daily. 16. Levophed drip. 17. Zofran p.r.n. 18. Protonix IV. 19. Potassium supplementation t.i.d. PRINCIPAL PROCEDURES 1. Multiple chest x-rays showing a gradually progressively worsening diffuse infiltrate over the cou rse of [address] pulmonary angiogram 01/14/2017 shows no pulmonary emboli, extensive patchy ground glass infilt rates throughout the lungs, no aortic aneurysm or dissection. 3. Echocardiogram done for hypotension, showed an ejection fraction of 70% to 75%, no regional wall motion abnormalities. Right side heart ventricle and atrium were normal. No significant valvular hear t disease. Right heart pressures were with right ventricular systolic pressure at rest 27 mmHg. 4. Urine culture positive for Raoultella planticola. 5. Clostridium difficile negative stool. 6. Campylobacter antigen assay negative. HOSPITAL COURSE: The patient is a 46-year-old white female who has hypertension, hyperlipidemia, and depression. She has a previous history of suicide attempts because of depression. She is in the proce ss of obtaining a divorce from her , and he relates that she has a problem with alcohol abuse and continues to smoke. She decided to take 30 pills of 50 mg of metoprolol and 30 pills of amlodipin e, hoping that she would not ever have to wake up. She was brought to the emergency room, where she was very hypotensive with a blood pressure of 70/40, and a heart rate that remained in the 60s and 70s. Mentating well. Poison Control was contacted and she was given calcium chloride, glucagon, and started on an insulin drip and D10. She was then placed in ICU. In ICU, she continued to have hypotension at 60/30 and was started on Levophed. For the first 24 hours, the patient was stable, and received aggressive IV fluid resuscitation in add ition to the Levophed. She was maintained on the insulin and D10 drip. Gradually, she became more tac hycardic, Levophed was gradually reduced, and on the second day Levophed was discontinued with all dr ips discontinued. Rebound tachycardia occurred in the 120s and a low dose of metoprolol was attempted to be introduced, but she would drop her pressure for that, so we stopped it after 1 dose. On the second day, she was continued to be needing oxygen and having a dry, but feeling like she had chest congestion, and she was given cough medicine and chest x-rays were reviewed. She had an episode of sudden increased cough and shortness of breath late in the evening of the second night and senior commissions analyst hours of the third day, and she was identified as having pneumonia and started on Rocephin an d azithromycin. Over the course of that third day, she also had a witnessed episode of vomiting and a spiration. Clindamycin was added later on that night. Also noted during the third day was a gradually worsening hypoxia and she went from 4 liters nasal cannula to 15 liters nonrebreather. Blood gas was obtained and showed her to have acute respiratory failure with severe hypoxia, and she was placed on BiPAP that evening. In the senior commissions analyst hours of the fourth day, the patient continued to have worsening O2 saturations, mainly because of agitation. In spite of Ativan and Haldol to cover possible DTs or ICU psychosis, t he patient kept on taking off her BiPAP mask and would desaturate into the low 70s. She was also deve loping hypotension again. As such, the patient was electively intubated, and placed on Levophed. CT h ad earlier been done showing the ground-glass opacities and we were now thinking that the problem wit h more ARDS in relation to her drug overdose, as opposed to aspiration pneumonitis. Antibiotics were changed to vancomycin, cefepime, and clindamycin. We contacted [facility] ICU to see if they would be willing to take over the care of this pat ient since she was now exceeding the level of care a critical access hospital can provide. I spoke to Dr. Preston, who graciously accepted the patient in transfer. She was transferred in stable condition, but in critical state. Intubated on a Levophed drip. At the time of this dictation, blood pressure is 116/76, pulse is 83, she is 98% saturated on 40% FiO2. She has received Lasix with adequate urine output. She has diffuse fine rales in all lung gonzalez. She is completely sedated with medication and a regular rate and rhythm. Abdomen that is not distended, soft , quiet bowel sounds, and extremities with mild edema. Greater than 30 minutes was spent in coordinating discharge. JOB #: [id number] EXT JOB #:[id number]
== END 2017-01-15 19:07 | disposition short-term general hospital (02) | DRG 917 ==
LOC: EDUNIT# → ED 01:48 → SUPCPDRO 01:48 → ICU 03:06
PROVIDERS: ADMIT Internal Medicine; ATTEND Specialist
PROC: 02HV33Z Insertion of Infusion Device into Superior Vena Cava, Percutaneous Approach (ICD-10-PCS; principal; 2017-01-12)
PROC: 5A1935Z Respiratory Ventilation, Less than 24 Consecutive Hours (ICD-10-PCS; 2017-01-14)
PROC: 0BH17EZ Insertion of Endotracheal Airway into Trachea, Via Natural or Artificial Opening (ICD-10-PCS; 2017-01-14)
DX: T44.7X2A Poisoning by beta-adrenoreceptor antagonists, intentional self-harm, initial encounter (principal); J69.0 Pneumonitis due to inhalation of food and vomit; J80 Acute respiratory distress syndrome; N39.0 Urinary tract infection, site not specified; T46.1X2A Poisoning by calcium-channel blockers, intentional self-harm, initial encounter; I95.2 Hypotension due to drugs; Y92.009 Unspecified place in unspecified non-institutional (private) residence as the place of occurrence of the external cause; F32.89 Other specified depressive episodes; F10.10 Alcohol abuse, uncomplicated; F14.10 Cocaine abuse, uncomplicated; F15.10 Other stimulant abuse, uncomplicated; B96.89 Other specified bacterial agents as the cause of diseases classified elsewhere; E78.5 Hyperlipidemia, unspecified; I95.9 Hypotension, unspecified; I10 Essential (primary) hypertension; E87.6 Hypokalemia; F17.210 Nicotine dependence, cigarettes, uncomplicated
CPT/HCPCS: 36415; 36556; 36569; 36600; 51702; 71010; 71275; 80048; 80053; 80306; 80307; 80320; 80329; 81001; 81003; 82330; 82803; 83605; 83630; 83690; 83735; 83880; 84100; 84132; 85025; 85610; 87045; 87046; 87077; 87086; 87150; 87493; 93005; 93010; 93306; 94002; 94003; 94640; 94660; 96365; 96366; 96368; 96375; 99285; 99291

== ENCOUNTER 2017-02-07 09:06 | Outpatient (CLI) | payer OTHER | END 2017-02-07 09:07 | disposition home or self-care (01) | LOC: DI 09:06 | PROVIDERS: ATTEND Family Medicine | DX: I10 Essential (primary) hypertension (principal); E78.5 Hyperlipidemia, unspecified | CPT/HCPCS: 93306 ==

== ENCOUNTER 2018-06-30 11:05 | Emergency (ER) | payer SELFPAY ==
[2018-06-30] MEDS ORDERED: ONDANSETRON 4 MG/2 ML VIAL IVP STA (12:51)
--- NOTE | 2018-06-30 12:56 | ED Physician Documentation ---
PD HPI BACK PAIN - Stated complaint Stated Complaint: BACK PX - Chief complaint Chief Complaint: Back Pain - History obtained from History obtained from: Patient - History of Present Illness Timing - duration: Weeks Timing - details: Gradual onset, Still present, Waxing and waning Pain level max: 9 Pain level now: 0 Location: Lower, Left Quality: Pain Associated symptoms: No: Fever, Weakness, Numbness, Incontinent of urine, Hematuria, Incontinent of stool Improves with: Rest Worsened by: Movement, Other (laying down) Similar symptoms before: Has not had sx before Recently seen: Not recently seen - Additional information Additional information: 47 y/ female with hx intermittent HTN but not on any meds, , menopausal, appendectomy here with complain of left flank pain the past 2 weeks associated with nausea and decreased in appetite. Worse last night as she feels pressure at her low back. Denies any fever, cough, urinary or pelvic symptoms, vomiting, abdominal pain, constipation, diarrhea. Denies trauma, twisting/lifting injuries, travel or sick contacts. States drinks alcohol daily but will not share type and amount. Last drink yesterday. Review of Systems Ten Systems: 10 systems reviewed and negative Constitutional: denies: Fever, Chills Nose: denies: Rhinorrhea / runny nose, Congestion Throat: denies: Sore throat Cardiac: denies: Chest pain / pressure Respiratory: denies: Dyspnea, Cough GI: reports: Nausea. denies: Abdominal Pain, Abdominal Swelling, Vomiting, Constipation, Diarrhea, Bloody / black stool : denies: Dysuria, Frequency, Hesitancy, Discharge, Vaginal bleeding Skin: denies: Rash Musculoskeletal: reports: Back pain. 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, Other - Present Medications Home Medications: Ambulatory Orders Medication Instructions Recorded Confirmed Atorvastatin [Lipitor] 10 mg ORAL QPM 01/14/16 01/12/17 Amlodipine Besylate 2.5 mg PO DAILY 01/12/17 01/12/17 Metoprolol Tartrate 50 mg PO BID 01/12/17 01/12/17 Cephalexin [Keflex] 500 mg PO TID #21 capsule 06/30/18 - Allergies Allergies/Adverse Reactions: Allergies Allergy/AdvReac Type Severity Reaction Status Date / Time hydrocodone bitartrate * AdvReac Nausea Verified 06/30/18 11:16 [From Vicodin] shellfish derived AdvReac Nausea Verified 06/30/18 11:16 - Social History Does the pt smoke?: No Smoking Status: Never smoker Does the pt drink ETOH?: Yes Does the pt have substance abuse?: No - POLST Patient has POLST: No POLST Status: Full Code PD ED PE NORMAL - Vitals Vital signs reviewed: Yes - General General: Alert and oriented X 3, No acute distress, Well developed/nourished - HEENT HEENT: EOMI, Pharynx benign, Other (dry tongue) - Neck Neck: Supple, no meningeal sign - Cardiac Cardiac: RRR, No murmur - Respiratory Respiratory: No respiratory distress, Clear bilaterally - Abdomen Abdomen: Normal bowel sounds, Soft, Non tender, Non distended, No organomegaly - Back Back: No spinal TTP, Other (mild left CVAT to palpation/percussion) - Derm Derm: Warm and dry - Extremities Extremities: No deformity, No tenderness to palpate, Normal ROM s pain, No edema, Other (negative leg lifting) - Neuro Neuro: Alert and oriented X 3, 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, No motor deficit, No sensory deficit, Normal speech, Other (mild tongue tremors; no arm/hand tremors) - Psych Psych: Normal mood, Normal affect Results - Vitals Vitals: Vital Signs - 24 hr 06/30/18 06/30/18 06/30/18 11:12 13:00 14:00 Temperature 36.0 C L Heart Rate 101 H 94 78 Respiratory 20 Rate Blood Pressure 210/101 H 181/106 H 173/97 H O2 Saturation 100 96 97 Oxygen O2 Source Room air - Labs Labs: Laboratory Tests 06/30/18 06/30/18 06/30/18 13:05 13:10 13:10 WBC 8.6 RBC 4.98 Hgb 16.0 Hct 45.9 MCV 92.1 MCH 32.2 H MCHC 34.9 RDW 12.4 Plt Count 211 MPV 6.8 L Neut # (Auto) 6.8 H Lymph # (Auto) 1.1 L [place] # (Auto) 0.6 Eos # (Auto) 0.0 Baso # (Auto) 0.1 Absolute Nucleated RBC 0.00 Nucleated RBC % 0.0 Sodium 136 Potassium 4.3 Chloride 100 L Carbon Dioxide 25 Anion Gap 11.0 BUN 10 Creatinine 0.7 Estimated GFR (MDRD) 89 Glucose 90 Calcium 9.4 Total Bilirubin 1.1 H AST 117 H ALT 103 H Alkaline Phosphatase 143 H Total Protein 8.6 H Albumin 4.5 Globulin 4.1 Albumin/Globulin Ratio 1.1 Lipase 24 Urine Color YELLOW Urine Clarity HAZY Urine pH 6.0 Ur Specific [place] 1.020 Urine Protein NEGATIVE Urine Glucose (UA) NEGATIVE Urine Ketones 40 H Urine Occult Blood NEGATIVE Urine Nitrite POSITIVE H Urine Bilirubin NEGATIVE Urine Urobilinogen 0.2 (NORMAL) Ur Leukocyte Esterase MODERATE H Urine RBC 0-5 Urine WBC >25 H Ur Squamous Epith Cells MOD Squamous H Urine Bacteria Moderate H Ur Microscopic Review INDICATED Urine Culture Comments NOT INDICATED Urine HCG, Qual NEGATIVE PD MEDICAL DECISION MAKING - ED course Complexity details: reviewed results, re-evaluated patient ([id number] states feeling better denies any pain or nausea. Patient and spouse informed of test results. Discussed elevated LFTs and encourage patient to avoid alcohol. Patient wants to go home. We will discharge her on Keflex for her UTI and she was instructed to drink lots of water. She will follow-up with her primary doctor to reevaluate her blood pressure. Patient stated she used to be on blood pressure medication since she was a teenager. But this was discontinued because she overdosed on the metoprolol.), considered differential (kidney stone, UTI, pyelonephritis, muscle strain, alcohol withdrawal, pancreatitis), d/w patient, d/w family Departure - Departure Disposition: Home, Self Care Clinical Impression: Left flank pain UTI (urinary tract infection) Qualifiers: Urinary tract infection type: acute cystitis Hematuria presence: without hematuria Qualified Code(s): N30.00 - Acute cystitis without hematuria Hypertension Qualifiers: Hypertension type: essential hypertension Qualified Code(s): I10 - Essential (primary) hypertension Condition: Stable Instructions: ED UTI Cystitis Female, ED HTN Established Prescriptions: Cephalexin [Keflex] 500 mg PO TID #21 capsule Comments: Avoid alcohol. Cefy-fym-sdypyxk Tylenol or Motrin for pain. Take the pr escribed antibiotic for your UTI. Drink 6-8 glasses of water a day. Follow-up with your primary doctor. If worse return to the emergency room. Have your primary doctor reevaluate your blood pressure.
[2018-06-30 13:12] LABS: BASOPHILS # (AUTO) 0.1 10^3/uL (0.0-0.1); BASOPHILS % (AUTO) 0.7 %; EOSINOPHILS % (AUTO) 0.5 %; LYMPHOCYTES # (AUTO) 1.1 10^3/uL (1.5-3.5); LYMPHOCYTES % (AUTO) 13.3 %; MEAN CORPUSCULAR HEMOGLOBIN 32.2 pg (27.0-31.0); MEAN CORPUSCULAR HGB CONC 34.9 g/dL (32.0-36.0); MEAN CORPUSCULAR VOLUME 92.1 fL (81.0-99.0); MEAN PLATELET VOLUME 6.8 fL (7.9-10.8); MONOCYTES # (AUTO) 0.6 10^3/uL (0.0-1.0); MONOCYTES % (AUTO) 7.2 %; NEUTROPHILS # (AUTO) 6.8 10^3/uL (1.5-6.6); NEUTROPHILS % (AUTO) 78.3 %; PLT - PLATELET COUNT 211 10^3/uL (130-450); RED BLOOD COUNT 4.98 10^6/uL (4.20-5.40); RED CELL DISTRIBUTION WIDTH 12.4 % (12.0-15.0); WHITE BLOOD COUNT 8.6 x10^3/uL (4.8-10.8)
[2018-06-30 13:15] LABS: BILIRUBIN,URINE NEGATIVE (NEGATIVE); GLUCOSE, URINE (UA) NEGATIVE (NEGATIVE); KETONES,URINE (UA) 40 mg/dL (NEGATIVE); LEUKOCYTE ESTERASE, URINE MODERATE (NEGATIVE); NITRITE,URINE POSITIVE (NEGATIVE); OCCULT BLOOD,URINE NEGATIVE (NEGATIVE); PROTEIN,URINE NEGATIVE (NEGATIVE); UROBILINOGEN,URINE 0.2 (NORMAL) E.U./dL (NORMAL)
[2018-06-30 13:16] LABS: CLARITY,URINE HAZY (CLEAR)
[2018-06-30 13:24] LABS: BACTERIA,URINE Moderate /HPF (None Seen); HCG UR QUAL NEGATIVE; RBC,URINE 0-5 /HPF (0-5); SQUAMOUS EPITHELIAL CELL,UR MOD Squamous (<= Few)
[2018-06-30 13:25] LABS: ALBUMIN 4.5 g/dL (3.2-5.5); ALBUMIN/GLOBULIN RATIO 1.1 (1.0-2.2); BILIRUBIN,TOTAL 1.1 mg/dL (0.2-1.0); CALCIUM 9.4 mg/dL (8.5-10.3); CREATININE 0.7 mg/dL (0.4-1.0); TOTAL PROTEIN 8.6 g/dL (6.7-8.2)
[2018-06-30] MEDS ORDERED: KETOROLAC 60 MG/2 ML VIAL IVP STA (14:14)
[2018-06-30] MEDS ORDERED: SODIUM CHLORIDE 0.9% 1,000 ML IV ONE (14:14)
[2018-06-30] MEDS ORDERED: IOPAMIDOL-300 100 ML VIAL ONE (14:24)
[2018-06-30] MEDS ORDERED: IOPAMIDOL-300 100 ML VIAL IVP ONE (14:42)
--- NOTE | 2018-06-30 15:02 | CT Report ---
Reason: flank pain, +uti Procedure Date: 06/30/2018 Accession Number: [id number] / [id number] Procedure: CT - Abdomen/Pelvis W/ CPT Code: FULL RESULT: EXAM: CT ABDOMEN AND PELVIS EXAM DATE: 06/30/2018 02:40 PM. CLINICAL HISTORY: Urinary tract infection. Left flank pain for 2 weeks, with severe left flank pain for 2 days. COMPARISONS: None. TECHNIQUE: Routine helical CT imaging was performed through the abdomen and pelvis. IV contrast: 100 mL of Isovue-300. Enteric contrast: No. Reconstructions: Coronal and sagittal. In accordance with CT protocol optimization, one or more of the following dose reduction techniques were utilized for this exam: automated exposure control, adjustment of mA and/or KV based on patient size, or use of iterative reconstructive technique. FINDINGS: Lung Bases: Unremarkable. Liver: Normal. No masses. Gallbladder/Bile Ducts: Unremarkable. Spleen: Normal. Pancreas: Normal. Adrenal Glands: Normal. 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 No hydronephrosis. Cortical calcifications involving the upper pole of the right kidney measuring 2.5 mm in the interpolar region measuring 2.5 mm. Multiple areas of cortical parenchymal scarring in the upper lobe, interpolar region and lower pole. No hydronephrosis. Peritoneal Cavity/Bowel: Descending colonic diverticulosis without diverticulitis. No free fluid, free air or adenopathy. No masses or acute inflammatory process. I do not identify the appendix. Pelvic Organs: The bladder is only partially filled with urine. Anterior bladder wall thickening, measuring 7 mm. Sub-septate uterus. Adnexal structures are unremarkable. Vasculature: Calcified atherosclerotic plaques in the aorta and iliac arteries, without aneurysmal dilation. Bones: No significant abnormality. Other: None. IMPRESSION: 1. Multiple right renal cortical scars, associated with dystrophic calcifications in the upper pole and interpolar region. No hydronephrosis. 2. 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 3. Thickening of the anterior wall of the bladder measuring 7 mm, greater than expected for a decompressed urinary bladder, compatible with the patient's history of urinary tract infection. 4. No CT evidence of acute pyelonephritis. 5. Sub-septate uterus. 6. Descending colonic diverticulosis without diverticulitis. RADIA
[2018-06-30 15:56] VITALS: BP 156/93
== END 2018-06-30 15:56 | disposition home or self-care (01) ==
LOC: ED 11:05
DX: N30.00 Acute cystitis without hematuria (principal); R74.8 Abnormal levels of other serum enzymes; I10 Essential (primary) hypertension
CPT/HCPCS: 36415; 74177; 80053; 81001; 81025; 83690; 85025; 96361; 96374; 96375; 99284; Q9967; 81003; 87086

== ENCOUNTER 2020-03-09 19:56 | Observation (INO) | payer MEDICAID ==
[2020-03-09] MEDS ORDERED: LABETALOL 20 MG/4 ML SYRINGE IVP STA (20:12)
--- NOTE | 2020-03-09 20:15 | ED Physician Documentation ---
PD HPI CHEST PAIN - Stated complaint Stated Complaint: CHEST PAIN - Chief complaint Chief Complaint: Cardiac - History obtained from History obtained from: Patient - Additional information Additional information: 49-year-old woman with no history of cardiac disease, noting that she had a major beta-michael overdose a few years ago in a suicide attempt, but after recovery had normal echocardiography. She was sitting on the couch about half an hour ago watching television, she did not twist or move or anything and she suddenly developed severe sharp chest pain radiating to the back. It is worse if she twists, but otherwise nothing changes. She is never had a pain like this before. Risk factors for coronary disease include tobacco abuse and a father who in his 50s of what sounds like coronary syndrome. Review of Systems Ten Systems: 10 systems reviewed and negative Constitutional: reports: Sweats. denies: Fever, Chills Cardiac: reports: Chest pain / pressure. 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, Other - Allergies Allergies/Adverse Reactions: Allergies Allergy/AdvReac Type Severity Reaction Status Date / Time hydrocodone bitartrate * AdvReac Nausea Verified 03/09/20 20:09 [From Vicodin] shellfish derived AdvReac Nausea Verified 03/09/20 20:09 - Social History Does the pt smoke?: Yes Smoking Status: Current every day smoker Does the pt drink ETOH?: Yes Does the pt have substance abuse?: No - POLST Patient has POLST: No POLST Status: Full Code PD ED PE NORMAL - Vitals Vital signs reviewed: Yes - General General: Alert and oriented X 3, Other (She appears uncomfortable and hypervigilant) - HEENT HEENT: PERRL, EOMI - Neck Neck: Supple, no meningeal sign, No bony TTP - Cardiac Cardiac: RRR, No murmur - Respiratory Respiratory: No respiratory distress, Clear bilaterally - Abdomen Abdomen: Non tender - Back Back: No CVA TTP, No spinal TTP - Derm Derm: Normal color, Warm and dry - Extremities Extremities: No edema, No calf tenderness / cord - Neuro Neuro: Alert and oriented X 3, Normal speech Results - Vitals Vitals: Vital Signs - 24 hr 03/09/20 20:07 Temperature 36.6 C Heart Rate 83 Respiratory 17 Rate Blood Pressure 193/113 H O2 Saturation 100 Oxygen O2 Source Room air - EKG (time done) 2002 Rate: Rate (enter#) (85) Rhythm: NSR [place]: Normal Intervals: Normal [place] QRS: Normal Ischemia: Q waves (Inferior Q waves which were present on the last EKG on the chart dated 01/12/2017 but are very slightly larger now.). No: ST elevation c/w ischemia, ST depression Computer interpretation: Agree with computer - Labs Labs: Laboratory Tests 03/09/20 03/09/20 03/09/20 20:10 20:10 20:10 WBC 6.2 RBC 4.92 Hgb 16.0 Hct 46.0 MCV 93.5 MCH 32.5 H MCHC 34.8 RDW 11.8 L Plt Count 160 MPV 9.8 Neut # (Auto) 3.7 Lymph # (Auto) 1.8 [place] # (Auto) 0.5 Eos # (Auto) 0.1 Baso # (Auto) 0.1 Absolute Nucleated RBC 0.00 Nucleated RBC % 0.0 PT 10.4 INR 0.9 Sodium 133 L Potassium 3.5 Chloride 99 L Carbon Dioxide 22 Anion Gap 12.0 BUN 9 Creatinine 0.9 Estimated GFR (MDRD) 66 L Glucose 106 H Calcium 9.7 Total Bilirubin 1.3 H AST 82 H ALT 76 H Alkaline Phosphatase 89 Troponin I High Sens Total Protein 8.6 H Albumin 4.3 Globulin 4.3 H Albumin/Globulin Ratio 1.0 Lipase 27 03/09/20 20:10 WBC RBC Hgb Hct MCV MCH MCHC RDW Plt Count MPV Neut # (Auto) Lymph # (Auto) [place] # (Auto) Eos # (Auto) Baso # (Auto) Absolute Nucleated RBC Nucleated RBC % PT INR Sodium Potassium Chloride Carbon Dioxide Anion Gap BUN Creatinine Estimated GFR (MDRD) Glucose Calcium Total Bilirubin AST ALT Alkaline Phosphatase Troponin I High Sens 3.7 Total Protein Albumin Globulin Albumin/Globulin Ratio Lipase - Rads (name of study) CT angiography of the chest abdomen pelvis Radiology: EMP read contemporaneously (No acute findings, she does have hepatic steatosis and evidence of prior right renal infection or injury as well as diverticulosis without diverticulitis.) PD MEDICAL DECISION MAKING - ED course ED course: 49-year-old woman with history of hypertension presents with severe sudden onset chest and back pain while watching TV. This is in the setting of uncontrolled hypertension due to medical noncompliance due to lack of insurance. This constellation of symptoms was very concerning to me for dissection she went immediately over for angiography of the chest abdomen pelvis which was negative for same. Troponin and EKG were relatively unremarkable. She had persistent chest pain but it improved after the dose of labetalol and we continue to work on her blood pressure. Given the persistent chest pain and uncontrolled hypertension will be placed in observation for medical management and formal rule out and I spoke with Dr. Kerr for this at 9:48 PM. - Critical Care Time(min): 35 Time Includes: Direct patient care, Review records, Reassess patient, Document care, Coordinate care, Medical consult Data interpretation: Labs, Pulse ox Procedures included in critical care time: Peripheral IV Procedures excluded from critical care time: EKG Departure - Departure Disposition: ED Place in Observation Clinical Impression: Chest pain Condition: Stable
[2020-03-09 20:24] LABS: BASOPHILS # (AUTO) 0.1 10^3/uL (0.0-0.1); BASOPHILS % (AUTO) 0.8 %; EOSINOPHILS # (AUTO) 0.1 10^3/uL (0.0-0.7); EOSINOPHILS % (AUTO) 1.6 %; LYMPHOCYTES # (AUTO) 1.8 10^3/uL (1.5-3.5); LYMPHOCYTES % (AUTO) 28.4 %; MEAN CORPUSCULAR HEMOGLOBIN 32.5 pg (27.0-31.0); MEAN CORPUSCULAR HGB CONC 34.8 g/dL (32.0-36.0); MEAN CORPUSCULAR VOLUME 93.5 fL (81.0-99.0); MEAN PLATELET VOLUME 9.8 fL (7.9-10.8); MONOCYTES # (AUTO) 0.5 10^3/uL (0.0-1.0); MONOCYTES % (AUTO) 8.8 %; NEUTROPHILS # (AUTO) 3.7 10^3/uL (1.5-6.6); NEUTROPHILS % (AUTO) 60.1 %; PLT - PLATELET COUNT 160 10^3/uL (130-450); RED BLOOD COUNT 4.92 10^6/uL (4.20-5.40); RED CELL DISTRIBUTION WIDTH 11.8 % (12.0-15.0); WHITE BLOOD COUNT 6.2 x10^3/uL (4.8-10.8)
[2020-03-09] MEDS ORDERED: IOVERSOL 320 100 ML VIAL IVP ONE ×2 (20:30→21:09)
[2020-03-09 20:31] LABS: INR 0.9 (0.8-1.2); PT - PROTHROMBIN TIME 10.4 secs (9.9-12.6)
[2020-03-09 20:34] LABS: ALBUMIN 4.3 g/dL (3.2-5.5); BILIRUBIN,TOTAL 1.3 mg/dL (0.2-1.0); CALCIUM 9.7 mg/dL (8.5-10.3); CREATININE 0.9 mg/dL (0.4-1.0); TOTAL PROTEIN 8.6 g/dL (6.7-8.2)
[2020-03-09] MEDS ORDERED: ASPIRIN CHEW 81 MG TABLET PO STA (21:10)
--- NOTE | 2020-03-09 21:23 | CT Report ---
PROCEDURE: ANGIO CHEST W/WO INDICATIONS: chest/back pain AORTA PROTOCOL CONTRAST: IV CONTRAST: Optiray 320 ml: 100 PO CONTRAST: *NO PO CONTRAST TECHNIQUE: After the administration of intravenous contrast, 2 mm thick sections acquired from the pulmonary api doc to the posterior costophrenic angles. 3-dimensional maximum intensity projection (MIP) coronal a nd sagittal reformats were then acquired through the thorax. For radiation dose reduction, the follow ing was used: automated exposure control, adjustment of mA and/or kV according to patient size. COMPARISON: CT angiogram of chest dated 01/14/2017 FINDINGS: Image quality: Excellent. Pulmonary arteries: Pulmonary arteries are normal in size, and demonstrate no intraluminal filling d efects to suggest central pulmonary embolism. Lungs and pleura: Lungs are clear. No pleural effusions or pneumothorax. Central and peripheral ai rways are patent. Mediastinum: Heart size is normal, without pericardial effusion. No mediastinal or hilar adenopathy . Thoracic aorta is normal in caliber and enhancement. There is no aortic aneurysm or dissection. Es ophagus is normal in caliber, without hiatal hernia. Bones and chest wall: No suspicious bony lesions. Ribs and thoracic spine appear intact throughout. The thyroid is normal. No axillary or supraclavicular adenopathy. Abdomen: Visualized upper abdominal solid organs appear normal in the early arterial phase of enhanc ement. Hepatic steatosis is seen. IMPRESSION: 1. No thoracic aortic aneurysm or dissection. Visualized upper abdominal aorta are normal in size and show no evidence of dissection. 2. No evidence of pulmonary bullae. 3. Bilateral lungs are clear. Reviewed by: Raphael Barragan MD on 03/09/2020 9:21 PM PDT Approved by: Raphael Barragan MD on 03/09/2020 9:21 PM PDT Station ID: [id number]
--- NOTE | 2020-03-09 21:27 | CT Report ---
PROCEDURE: ANGIO ABDOMEN/PELVIS W INDICATIONS: CHEST/BACK PAIN CONTRAST: IV CONTRAST: Optiray 320 ml: 100 PO CONTRAST: *NO PO CONTRAST TECHNIQUE: After the administration of intravenous contrast, 2 and 5 mm sections acquired from the diaphragm to the iliac crests. 3-dimensional maximum intensity projection (MIP) coronal and sagittal reformats, a nd/or 3-dimensional volume rendering reformatting was then performed. For radiation dose reduction, the following was used: automated exposure control, adjustment of mA and/or kV according to patient size. COMPARISON: CT of abdomen and pelvis dated 06/30/2018 FINDINGS: Image quality: Excellent. Extravascular tissues: Lung bases are clear. Heart size is normal. Liver and spleen are normal in size and enhancement. Moderate hepatic steatosis is seen. Gallbladder is within normal limits Bilia ry system is non dilated. Pancreas enhances normally. No adrenal nodules. Kidneys are normal in si ze and enhancement, without hydronephrosis. There is of cortical thinning scattered in upper to midpo le right kidney are seen, suggestive of prior injury/infarction. Non-opacified bowel loops demonstrat e normal wall thickness and caliber. Mild sigmoid diverticulosis is seen, no evidence of acute divert iculitis. No free fluid or air. No retroperitoneal or mesenteric adenopathy. No ventral hernias. N o suspicious bony abnormalities. No vertebral body compression fractures. Abdominal aorta: There is no abdominal aortic aneurysm or dissection. Mesenteric arteries: Celiac axis, superior and inferior mesenteric arteries are patent. Renal arteries: Bilateral renal arteries are patent. IMPRESSION: 1. No evidence of abdominal aortic aneurysm or dissection. Mesenteric vessels and renal arteries are patent. 2. Hepatic steatosis, no discrete hepatic lesion. 3. No renal stone or hydronephrosis. Suggestion of prior right renal infection/injury with multiple a reas of cortical thinning. 4. No bowel obstruction. No abnormal bowel wall thickening. No free fluid of free air. Sigmoid divert iculosis with no evidence of acute diverticulitis. Reviewed by: Raphael Barragan MD on 03/09/2020 9:26 PM PDT Approved by: Raphael Barragan MD on 03/09/2020 9:26 PM PDT Station ID: [id number]
[2020-03-09] MEDS ORDERED: MORPHINE 2 MG/ML CARPUJECT IVP STA (21:33)
[2020-03-09] MEDS ORDERED: METOPROLOL 5 MG/5 ML VIAL IVP STA (21:33)
[2020-03-09] MEDS ORDERED: SODIUM CHLORIDE FLUSH 0.9% 10 ML SYRINGE IVP PRN (21:46)
[2020-03-09] MEDS ORDERED: ACETAMINOPHEN 325 MG TABLET PO PRN (21:46)
[2020-03-09] MEDS ORDERED: ONDANSETRON 4 MG/2 ML VIAL IVP PRN (21:46)
--- NOTE | 2020-03-09 21:55 | HISTORY & PHYSICAL EXAMINATION ---
Chief Complaint - Chief Complaint Chief Complaint: Chest pain radiating to back. History of Present Illness - Admitted From Admitted From:: Home - History Obtained From Records Reviewed: Yes History obtained from: Patient, ER Physician, EMR - History of Present Illness HPI Comment/Other: This is a 49-year-old female with a past medical history significant for hypertension, alcohol abuse, prior history of methamphetamine and cocaine use who presents today complaining of sudden onset chest pain radiating to her back. She states she is watching a movie when the chest pain came on suddenly. She rated about 8 out of 10 and it was sharp in nature. It did radiate to her back but not to her arms. She reported feeling diaphoretic but denied any nausea or vomiting. She felt like her left arm might have started, but none upon her arrival to the emergency department. She reports hot flashes over the past couple of weeks but no fevers or chills or recent sick contacts. She reports no prior history of heart disease. She does smoke a pack of cigarettes a day. She does have a family history of heart disease as well. She denies ever having a stress test. She does drink alcohol on a daily basis but quit 1 week ago. She denies any symptoms of withdrawal during that period of time. She does have a history of hypertension but has been off of her medications for nearly 3 years she lost insurance. She now does have a healthcare insurance but does not have a primary care provider. She does not check her blood pressure on an outpatient basis. She denies any family history of blood clots or personal history of blood clots. Reports no recent travel. Denies any lower extremity swelling or leg pain. In the emergency department, she is found to be afebrile with a temperature of 36.6 C. Her heart rate was 83. Her blood pressure was 119/113 this improved to 157/105 after receiving 20 mg of labetalol IV. She was not tachypneic and saturating 100% on room air. Her labs were unremarkable except for mildly elevated LFTs and a normal troponin. Her EKG showed a sinus rhythm without any ST segment changes and does not appear changed compared to her prior EKG from [address] angiogram of the chest and abdomen was negative for dissection. She was given 325 mg of aspirin. Given her elevated blood pressure and her ongoing chest pain, medicine was consulted for admission. History - Past Medical History Cardiovascular: reports: Hypertension, High cholesterol Respiratory: reports: None Neuro: reports: None Endocrine/Autoimmune: reports: None GI: reports: None CARBON PRINTER: reports: None : reports: None HEENT: reports: None Psych: reports: Depression, Anxiety Musculoskeletal: reports: None Derm: reports: None - Past Surgical History General: reports: Appendectomy /CARBON PRINTER: reports: section - Family & Social History Family History Comment/Other: She reports her father the age of 55 from a myocardial infarction. Living arrangement: At home Living Situation: With spouse/s.o. Social History Notes: She is originally from [facility]. She was previously but went through a divorce approximately 3 years ago. She currently now lives with her significant other, Lon. She reports smoking a pa ck of cigarettes a day. She has a [id number] smoking history. She did quit for 5 years at 1 point. She has also been drinking approximately 6 beers a day for quite a few years now but quit 1 month ago. She denies any history of illicit drug use although review of records showed she had a urine drug screen that was positive for methamphetamines and cocaine in the past. She is not currently working. - Substance History Use: Uses substance without health or social issues: Tobacco - POLST Patient has POLST: No POLST Status: Full Code Meds/Allgy - Allergies Allergies/Adverse Reactions: Allergies Allergy/AdvReac Type Severity Reaction Status Date / Time hydrocodone bitartrate * AdvReac Nausea Verified 03/09/20 20:09 [From Vicodin] shellfish derived AdvReac Nausea Verified 03/09/20 20:09 Review of Systems - Constitutional Constitutional: reports: Diaphoresis, Other (Hot flashes.). denies: Fatigue, Fever, Chills - Ears, Nose & Throat Ears, Nose & Throat: denies: Nasal discharge, Nasal congestion, Sore throat - Cardiovascular Cariovascular: reports: Chest pain, Lightheadedness. denies: Exertional dyspnea, Decr. exercise tolerance - Respiratory Respiratory: reports: SOB at rest. denies: SOB with exertion - Gastrointestinal Gastrointestinal: denies: Abdominal pain, Diarrhea, Change in bowel habits, Nausea, Vomiting - Genitourinary Genitourinary: denies: Dysuria, Frequency, Urgency, Hematuria - Musculoskeletal Musculoskeletal: denies: Muscle pain, Limited range of motion, Muscle weakness - Neurological Neurological: reports: Dizziness, Numbness. denies: General weakness, Focal weakness - Hematologic/Lymphatic Hematologic/Lymphatic: denies: Blood clots - All Other Systems All Other Systems: reports: Reviewed and negative Prior Level of Functionality: She is independent with her ADL's. Exam - Vital Signs Reviewed Vital Signs: Yes Vital Signs: Vital Signs x48h Temp Pulse Resp BP Pulse Ox 03/09/20 21:49 90 157/105 H 03/09/20 20:07 36.6 C 83 17 193/113 H 100 - Physical Exam General Appearance: positive: No acute distress, Alert Eyes Bilateral: positive: Normal inspection, Conjunctivae nml ENT: positive: ENT inspection nml Neck: positive: Nml inspection Respiratory: positive: No respiratory distress. negative: Wheezes, Rales Cardiovascular: positive: Regular rate & rhythm, No murmur. negative: Tachycardia, Bradycardia, Systolic murmur Abdomen: positive: Non-tender, No distention. negative: Tenderness, Guarding, Rebound Skin: positive: No rash, Warm, Dry Extremities: positive: Full ROM, No pedal edema. negative: Pedal edema, Calf tenderness, Yvonne's sign/cords Neurologic/Psychiatric: positive: Oriented x3, Motor nml. negative: Disoriented to person, Disoriented to place, Disoriented to time Conclusion/Plan - Problem List (1) Chest pain Conclusion/Plan: The etiology of her chest pain is not clear at this time although this could ACS. CTA did not reveal a dissection. Initial troponin is negative and her EKG is unchanged compared to the prior EKG does not suggest ischemia. She does have risk factors including family history and tobacco use. She also does have a history of cocaine and methamphetamine use in the past. She did receive aspirin in the emergency department. At this time, we will treat her elevated blood pressure. We will monitor her on telemetry. Trend her troponin. Will obtain echocardiogram in the morning. We will likely obtain a stress test tomorrow so we will keep her n.p.o. at midnight for this. Check a urine drug screen. If her chest pain persists then we will start her empirically on a heparin drip for unstable angina and transfer for cardiology evaluation. (2) Hypertensive urgency Conclusion/Plan: She presented with a blood pressure of 119/113 with accompanied chest pain. Suspect her blood pressure is likely been elevated for quite some time given her history of hypertension and her being off of antihypertensives and that the chest pain does not coincide with her elevated blood pressure. She has no evidence of hypertensive emergency at this time. Her blood pressure is improved after receiving labetalol IV in the emergency department. We will start her on metoprolol 20 mg twice daily and amlodipine 5 mg daily. Her current blood press ure is 143/102 which is roughly 25% reduction in her mean arterial pressure which is our goal overnight. (3) Elevated LFTs Conclusion/Plan: LFTs are mildly elevated and imaging revealed hepatic steatosis. This is likely secondary to her alcohol abuse. Monitor LFT's. (4) Alcohol abuse Conclusion/Plan: Reports a history of alcohol abuse where she would drink 6 beers a day for many years. Reports quitting 1 week ago and denies any symptoms consistent with withdrawal. We will start her empirically on multivitamin and thiamine. - Lab Results Lab results reviewed: Yes Fish Bones: 03/09/20 20:10 03/09/20 20:10 - Diagnostic Imaging Results Diagnostic Imaging Results: positive: Final report reviewed - EKG Results EKG Interpreted Independently: Yes EKG Comparison: Unchanged from prior EKG EKG Findings: EKG shows sinus rhythm without any obvious ST segment changes. Q waves in the inferior leads are present on prior EKG. Core Measures - Anticipated LOS I expect patient to be DC'd or transferred within 96 hours.: Yes - Issues Hospital Issues and Management Plan: 49-year-old female with history of hypertension not on any medications presents with chest pain radiating to the back and hypertensive urgency. CT angio is negative for dissection. Her EKG did not suggest ischemia troponin is negative. We will place in observation for further work-up of her chest pain and likely a stress test. - DVT/VTE - Prophylaxis VTE/DVT Device ordered at admit?: Yes VTE/DVT Prophylaxis med ordered at admit?: Yes
[2020-03-09] MEDS ORDERED: NICOTINE 21 MG PATCH TOP STA (22:41)
[2020-03-09] MEDS: METOPROLOL TARTRATE 25 MG TABLET PO SCH (23:37)
[2020-03-09] MEDS: MORPHINE 2 MG/ML CARPUJECT IVP PRN (23:50)
[2020-03-09] MEDS: SODIUM CHLORIDE FLUSH 0.9% 10 ML SYRINGE IVP SCH (23:52)
[2020-03-10 00:50] LABS: MUDS CUTOFF CONCENTRATIONS CUTOFF CONC BELOW:
[2020-03-10 01:26] LABS: AMPHETAMINE SCREEN,URINE NEGATIVE (NEGATIVE); BENZODIAZEPINES SCREEN, URINE NEGATIVE (NEGATIVE); COCAINE SCREEN URINE NEGATIVE (NEGATIVE); METHADONE SCREEN, URINE NEGATIVE (NEGATIVE); METHAMPHETAMINES SCREEN, URINE NEGATIVE (NEGATIVE); OPIATE SCREEN, URINE POSITIVE (NEGATIVE); OXYCODONE SCREEN, URINE NEGATIVE (NEGATIVE); PROPOXYPHENE SCREEN, URINE NEGATIVE (NEGATIVE); TRICYCLIC ANTIDEPRESSANT,URINE NEGATIVE (NEGATIVE)
[2020-03-10] MEDS: MORPHINE 2 MG/ML CARPUJECT IVP PRN ×3 (04:44→13:38)
[2020-03-10 04:59] LABS: BASOPHILS % (AUTO) 0.7 %; EOSINOPHILS # (AUTO) 0.1 10^3/uL (0.0-0.7); EOSINOPHILS % (AUTO) 2.6 %; HGB - HEMOGLOBIN 14.5 g/dL (12.0-16.0); LYMPHOCYTES # (AUTO) 1.5 10^3/uL (1.5-3.5); LYMPHOCYTES % (AUTO) 28.2 %; MEAN CORPUSCULAR HEMOGLOBIN 32.2 pg (27.0-31.0); MEAN CORPUSCULAR HGB CONC 33.8 g/dL (32.0-36.0); MEAN CORPUSCULAR VOLUME 95.3 fL (81.0-99.0); MEAN PLATELET VOLUME 9.7 fL (7.9-10.8); MONOCYTES # (AUTO) 0.5 10^3/uL (0.0-1.0); MONOCYTES % (AUTO) 8.9 %; NEUTROPHILS # (AUTO) 3.2 10^3/uL (1.5-6.6); NEUTROPHILS % (AUTO) 59.4 %; PLT - PLATELET COUNT 147 10^3/uL (130-450); RED CELL DISTRIBUTION WIDTH 11.9 % (12.0-15.0); WHITE BLOOD COUNT 5.4 x10^3/uL (4.8-10.8)
[2020-03-10 05:11] LABS: ALBUMIN 3.9 g/dL (3.2-5.5); BILIRUBIN,DIRECT 0.1 mg/dL (0.1-0.5); CALCIUM 9.4 mg/dL (8.5-10.3); CREATININE 0.7 mg/dL (0.4-1.0); PHOSPHORUS 4.7 mg/dL (2.5-4.6); TOTAL PROTEIN 6.9 g/dL (6.7-8.2)
[2020-03-10] MEDS: METOPROLOL TARTRATE 25 MG TABLET PO SCH (07:24)
[2020-03-10] MEDS ORDERED: MULTIVITAMIN TABLET PO SCH (08:00)
[2020-03-10] MEDS: SODIUM CHLORIDE FLUSH 0.9% 10 ML SYRINGE IVP SCH (08:01)
[2020-03-10] MEDS ORDERED: ENOXAPARIN 40 MG/0.4 ML SYRINGE SUBQ SCH (09:00)
[2020-03-10] MEDS ORDERED: THIAMINE 100 MG TABLET PO SCH (09:00)
[2020-03-10] MEDS ORDERED: amLODIPine 5 MG TABLET PO SCH (09:00)
--- NOTE | 2020-03-10 15:18 | PHARMACY PROGRESS NOTE ---
- Best Possible Medication History Admit Date and Time: 03/09/20 2146 Processed by: Pharmacy Medication History completed: Yes Patient Interview: Pt interview ONLY source As the person ultimately responsible for medication therapy, providers are able to order a medication from an existing home medication list in [facility] via the "Reconcile Routine" prior to Confirmation of that medication by donor support technician. Such practice is discouraged except when the physician, in their clinical judgment, deems that a medical need exists for a medication without regard to previous use.
--- NOTE | 2020-03-10 16:59 | CARDIAC PROCEDURE NOTE ---
Stress Test Report Service Date: 03/10/20 Service Time: 12:50 Ordering Provider: Uriel Kerr MD Indication for Test: chest pain Significant Medical History: 49-year-old female who has hypertension, hyperlipidemia, history of alcohol abuse, prior met amphetamine and cocaine use that has sudden onset chest pain radiating to her back. CT scan of chest negative for dissecting aneurysm or pulmonary embolism. She does smoke. EKG has been negative and high-sensitivity troponins have been unremarkable. Cardiac Risk Factors: Hypertension, smoking, hyperlipidemia and family history. Father of myocardial infarction at the age of 55 Type of Stress Test: ETT with Myocardial Perfusion Imaging Pharmacologic Agent: Lexiscan Procedure: The patient performed a treadmill exercise using Baldo protocol, 6 minutes and 22 seconds were completed with an estimated workload of 7.57 metabolic equivalents. The test was terminated due to fatigue and shortness of breath. Heart rate was 62 bpm at rest. And she increased to 167 bpm with peak exercise which was 98% of maximum predicted heart rate. Her resting blood pressure was 151/93. Peak blood pressure was 166/109. This was a normal hypertensive response to exercise. The patient did not develop any other symptoms other than the usual fatigue during the procedure. Good exercise tolerance. There was no chest pain, shoulder pain, nausea, diaphoresis or palpitations. The resting EKG had sinus rhythm with a deep Q wave in the inferior leads. She also had a Q wave in V3 through V6. Compatible with a possible old anterior wall IL. During stress, she did not show any ST segment changes consistent with myocardial ischemia. Recovery was in less than 2 minutes. Heart rate dropped below 90 within that time. In the recovery phase there was no arrhythmias, PVCs, or PACs. Resting images have already been obtained with Lexiscan. Further isotope injection occurred after stress and she is going to nuclear medicine for further imaging. Summary: EKG analysis of exercise stress test is not diagnostic for coronary ischemia. Preliminary nuclear medicine images were reviewed with radiologist. Ejection fraction is 70%. He reports that there are no fixed reversible or irreversible defects. Final report is pending.
--- NOTE | 2020-03-10 17:04 | Nuclear Medicine Report ---
PROCEDURE: Rest and exercise myocardial perfusion SPECT with gated imaging and ejection fraction INDICATIONS: Chest pain. RADIOPHARMACEUTICAL: 8.3 mCi Tc-99m myoview IV at rest and 26.1 mCi Tc-99m myoview IV at peak exerci se. [id number] was performed. TECHNIQUE: Radiopharmaceutical was injected at peak stress test, and also at rest. SPECT images wer e obtained. SPECT myocardial perfusion images were displayed in short axis, horizontal long axis, an d vertical long axis views. Gated images were reviewed using AutoQU[employer] software. COMPARISON: None available. FINDINGS: Raw data: There is good myocardial labeling by radiotracer. No significant motion artifacts. Lung- to-heart ratio is 0.28 (normal is less than 0.38 for tetrafosmin tracer). Left ventricle function: Gated images demonstrate normal left ventricle wall thickening. No segment al wall motion abnormality. No transient ischemic dilation; TID is 0.94 (normal less than 1.3). The left ventricle resting end-diastolic volume is 35 mL. Left ventricle stress ejection fraction is 70 %; normal values are above 45%. Myocardial perfusion: There is normal distribution of activity in the left and right ventricular alex cardium. No fixed or reversible perfusion defects. IMPRESSION: No reversible perfusion defect to suggest ischemia. Normal left ventricular ejection fraction PQRS ATTESTATIONS: Measure 322 - Is this imaging test primarily performed on a low-risk surgery patient for preoperative evaluation within 30 days preceding their low-risk non-cardiac surgery? Low-risk surgery is defined as cardiac or myocardial infarction less than 1%, including (but not limited to) endoscopic pr ocedures, superficial procedures, cataract surgery, and excisional breast surgery: Answer: No Measure 323 - Is this imaging test performed primarily for the monitoring of an asymptomatic patient who had percutaneous coronary intervention on the visit date or within 2 years of the visit date? An swer: No Measure 324 - Is this imaging test performed primarily for the initial detection and risk assessment on an asymptomatic, low coronary heart disease patient? Low CHD risk definition = clinicians should consider the maximum number of available patient factors used to estimate risk based on [place] (A TP III criteria), typically age, gender, diabetes, smoking status, and use of blood pressure medicati on, and integrate age appropriate estimates for missing elements, such as LDL or standard blood press ure. Answer: No Reviewed by: Hussein Love MD on 03/10/2020 5:03 PM PDT Approved by: Hussein Love MD on 03/10/2020 5:03 PM PDT Station ID: [id number]
--- NOTE | 2020-03-10 17:23 | DISCHARGE SUMMARY ---
"Discharge Summary Admit Date: 03/09/20 Discharge Date: 03/10/20 Discharging Provider: Nava Graham MD Primary Care Provider: No PCP Code Status: Attempt Resuscitation Condition at Discharge: Stable Discharge Disposition: 01 Home, Self Care - DIAGNOSES Discharge Diagnoses with Status of Each Condition: 1. Chest pain 2. Hypertensive urgency 3. Elevated LFTs 4. Alcohol abuse - HPI History of Present Illness: This is a 49-year-old female with a past medical history significant for hypertension, alcohol abuse, prior history of methamphetamine and cocaine use who presents today complaining of sudden onset chest pain radiating to her back. She states she is watching a movie when the chest pain came on suddenly. She rated about 8 out of 10 and it was sharp in nature. It did radiate to her back but not to her arms. She reported feeling diaphoretic but denied any nausea or vomiting. She felt like her left arm might have started, but none upon her arrival to the emergency department. She reports hot flashes over the past couple of weeks but no fevers or chills or recent sick contacts. She reports no prior history of heart disease. She does smoke a pack of cigarettes a day. She does have a family history of heart disease as well. She denies ever having a stress test. She does drink alcohol on a daily basis but quit 1 week ago. She denies any symptoms of withdrawal during that period of time. She does have a history of hypertension but has been off of her medications for nearly 3 years she lost insurance. She now does have a healthcare insurance but does not have a primary care provider. She does not check her blood pressure on an outpatient basis. She denies any family history of blood clots or personal history of blood clots. Reports no recent travel. Denies any lower extremity swelling or leg pain. In the emergency department, she is found to be afebrile with a temperature of 36.6 C. Her heart rate was 83. Her blood pressure was 119/113 this improved to 157/105 after receiving 20 mg of labetalol IV. She was not tachypneic and saturating 100% on room air. Her labs were unremarkable except for mildly elevated LFTs and a normal troponin. Her EKG showed a sinus rhythm without any ST segment changes and does not appear changed compared to her prior EKG from [address] angiogram of the chest and abdomen was negative for dissection. She was given 325 mg of aspirin. Given her elevated blood pressure and her ongoing chest pain, medicine was consulted for admission. History - Past Medical History Cardiovascular: reports: Hypertension, High cholesterol Respiratory: reports: None Neuro: reports: None Endocrine/Autoimmune: reports: None GI: reports: None [employer] TE[employer]ER: reports: None : reports: None HEENT: reports: None Psych: reports: Depression, Anxiety Musculoskeletal: reports: None - CONSULTS | PROCEDURES Procedures: Baldo Protocol Nuclear Medicine Stress Test - HOSPITAL COURSE Hospital Course: Serial cardiac enzymes were completely negative. She did not have further chest pain. Stress test was negative and she was discharged to home. Asked to please establish herself with primary care provider. Her alcohol abuse was commented on. We have explained to her that she has liver function changes because of it. She is advised to stop drinking. INR is still intact at 0.9. Blood pressure is mildly elevated the 150s over 90s. It is unclear if this is due to alcohol use, or to actual essential hypertension. I hesitate to start her on blood pressure pill since she has not establish yourself with a PCP. I have asked her to please establish yourself, get her blood pressure checked regularly, and then start blood pressure medicines at that time if needed. At the time of discharge temperature is 36.8. Pulse 79. Blood pressure 146/84. Respirations 16 and she is 96% on room air. She is a tanned, alert, alert middle-aged female in no acute distress. Slightly hoarse voice. Neck is supple with shotty adenopathy. Lungs are clear to auscultation and percussion. PMI is normally placed with a regular rate and rhythm. Abdomen soft, nontender, no masses. Extremities are without edema. There is no diaphoresis, tremors. - ALLERGIES Allergies/Adverse Reactions: Allergies Allergy/AdvReac Type Severity Reaction Status Date / Time hydrocodone bitartrate * AdvReac Nausea Verified 03/09/20 20:09 [From Vicodin] shellfish derived AdvReac Nausea Verified 03/09/20 20:09 - MEDICATIONS Home Medications: Ambulatory Orders Medication Instructions Recorded Confirmed No Known Home Medications 03/10/20 03/10/20 - LABS Result Diagrams: 03/10/20 04:45 03/10/20 04:45"
--- NOTE | 2020-03-10 17:34 | Discharge Plan ---
Discharge Plan Problem Reviewed?: Yes Disposition: Home, Self Care Condition: Stable Diet: Regular Activity Restrictions: Activity as Tolerated Shower Restrictions: No Driving Restrictions: No Health Concerns: He presented to the hospital with chest pain. EKG in the emergency room and initial blood testing for heart attack was negative. We placed in observation overnight and the rest of your blood test for heart attack were also negative. Plan of Treatment: 1. Cardiac stress testing was completely negative. You did well on your stress test. 2. We are asking you to please stop drinking. It is starting to affect your liver, and giving you high blood pressure. 3. If you are unable to stop drinking, we are worried about your blood pressure. Please see a primary care provider. Establish yourself in that office. Get your blood pressure checked regularly and you may need to start blood pressures in the next 1 month. Care Goals: To stop drinking, do healthy habits to take care of herself, and establish yourself with a doctor. Assessment: Patient understands and will follow through as much as she can. No Smoking: If you smoke, Please STOP! Call for help.
[2020-03-10 17:49] VITALS: BP 161/92
== END 2020-03-10 18:15 | disposition home or self-care (01) ==
LOC: ED 19:56 → MS2 21:46
PROVIDERS: ADMIT Internal Medicine; ATTEND Specialist
DX: R07.9 Chest pain, unspecified (principal); I16.0 Hypertensive urgency; I10 Essential (primary) hypertension; R94.5 Abnormal results of liver function studies; F10.10 Alcohol abuse, uncomplicated; F17.210 Nicotine dependence, cigarettes, uncomplicated; K76.0 Fatty (change of) liver, not elsewhere classified; E78.00 Pure hypercholesterolemia, unspecified; Z82.49 Family history of ischemic heart disease and other diseases of the circulatory system; Z91.5 Personal history of self-harm
CPT/HCPCS: 36415; 71275; 74174; 78452; 80048; 80053; 80076; 80306; 83690; 83735; 84100; 84484; 85025; 85610; 93005; 93017; 93306; 96374; 96375; 96376; 99291; A9270; A9500; Q9967

== ENCOUNTER 2021-03-05 16:36 | Outpatient (CLI) | payer MEDICAID | END 2021-03-05 16:37 | disposition home or self-care (01) | LOC: COV 16:36 | PROVIDERS: ATTEND Family Medicine | DX: Z20.822 Contact with and (suspected) exposure to COVID-19 (principal) ==

== ENCOUNTER 2021-12-17 08:00 | Outpatient (CLI) | payer MEDICAID ==
[2021-12-17 18:15] LABS: HCT - HEMATOCRIT 48.4 % (37.0-47.0); HGB - HEMOGLOBIN 16.2 g/dL (12.0-16.0); MEAN CORPUSCULAR HEMOGLOBIN 28.3 pg (27.0-31.0); MEAN CORPUSCULAR HGB CONC 33.5 g/dL (32.0-36.0); MEAN CORPUSCULAR VOLUME 84.5 fL (81.0-99.0); MEAN PLATELET VOLUME 10.4 fL (7.9-10.8); RED BLOOD COUNT 5.73 10^6/uL (4.20-5.40); RED CELL DISTRIBUTION WIDTH 13.1 % (12.0-15.0); WHITE BLOOD COUNT 3.1 x10^3/uL (4.8-10.8)
[2021-12-17 18:22] LABS: BILIRUBIN,URINE NEGATIVE (NEGATIVE); GLUCOSE, URINE (UA) NEGATIVE (NEGATIVE); KETONES,URINE (UA) 15 mg/dL (NEGATIVE); LEUKOCYTE ESTERASE, URINE NEGATIVE (NEGATIVE); NITRITE,URINE NEGATIVE (NEGATIVE); OCCULT BLOOD,URINE LARGE (NEGATIVE); PROTEIN,URINE TRACE mg/dL (NEGATIVE); UROBILINOGEN,URINE 0.2 (NORMAL) E.U./dL (NORMAL)
[2021-12-17 18:50] LABS: ALBUMIN 4.1 g/dL (3.2-5.5); ALBUMIN/GLOBULIN RATIO 1.2 (1.0-2.2); ALKALINE PHOSPHATASE 78 IU/L (42-121); ALT ALANINE AMINOTRANSFERASE 19 IU/L (10-60); AST ASPARTATE AMINOTRANSFERASE 35 IU/L (10-42); BILIRUBIN,TOTAL 0.8 mg/dL (0.2-1.0); BUN - BLOOD UREA NITROGEN 15 mg/dL (6-20); CALCIUM 8.9 mg/dL (8.5-10.3); CARBON DIOXIDE - CO2 26 mmol/L (21-32); CHLORIDE 97 mmol/L (101-111); CHOL/HDL RATIO 5.6 (<4.4); CHOLESTEROL 235 mg/dL; CREATININE 0.9 mg/dL (0.4-1.0); GFR - MDRD 65 (>89); GLUCOSE 79 mg/dL (70-100); HDL CHOLESTEROL 42 mg/dL; LDL CHOLESTEROL,CALCULATED 147 mg/dL; LDL/HDL RATIO 3.5 (<4.4); SODIUM 134 mmol/L (135-145); TOTAL PROTEIN 7.5 g/dL (6.7-8.2); TRIGLYCERIDES 231 mg/dL; VLDL CHOLESTEROL 46 mg/dL
[2021-12-17 18:54] LABS: AMORPHOUS SEDIMENT,UR Rare /LPF; BACTERIA,URINE Few /HPF (None Seen); CLARITY,URINE CLEAR (CLEAR); RBC,URINE TNTC /HPF (0-5); SQUAMOUS EPITHELIAL CELL,UR FEW Squamous (<= Few); WBC,URINE 0-3 /HPF (0-5)
[2021-12-17 21:00] LABS: ESTIMATED AVERAGE GLUCOSE 120 mg/dL (70-100); HEMOGLOBIN A1c% 5.8 % (4.27-6.07)
== END 2021-12-18 11:14 | disposition home or self-care (01) ==
LOC: LAB.N 08:00
PROVIDERS: ATTEND Physician Assistant Medical
DX: I10 Essential (primary) hypertension (principal); E78.5 Hyperlipidemia, unspecified; R79.89 Other specified abnormal findings of blood chemistry
CPT/HCPCS: 36415; 80053; 80061; 81001; 83036; 83721; 85027; 86803; 87086; 87522

== ENCOUNTER 2021-12-18 11:44 | Emergency (ER) | payer MEDICAID ==
--- NOTE | 2021-12-18 12:21 | XRAY Report ---
PROCEDURE: Chest 1 View X-Ray INDICATIONS: Chest pain TECHNIQUE: One view of the chest was acquired. COMPARISON: Chest x-ray 03/10/2020 FINDINGS: Surgical changes and devices: None. Lungs and pleura: No pleural effusions or pneumothorax. Lungs are clear. Lungs are hyperexpanded. Mediastinum: Mediastinal contours appear normal. Heart size is normal. Bones and chest wall: No suspicious bony lesions. Overlying soft tissues appear unremarkable. IMPRESSION: No acute pulmonary process. Reviewed by: Mony Au MD on 12/18/2021 11:19 AM DEON Approved by: Mony Au MD on 12/18/2021 11:19 AM DEON Station ID: [id number]
[2021-12-18 12:24] LABS: BASOPHILS % (AUTO) 0.4 %; EOSINOPHILS % (AUTO) 0.4 %; HCT - HEMATOCRIT 49.4 % (37.0-47.0); HGB - HEMOGLOBIN 17.1 g/dL (12.0-16.0); LYMPHOCYTES % (AUTO) 31.7 %; MEAN CORPUSCULAR HEMOGLOBIN 28.5 pg (27.0-31.0); MEAN CORPUSCULAR HGB CONC 34.6 g/dL (32.0-36.0); MEAN CORPUSCULAR VOLUME 82.5 fL (81.0-99.0); MEAN PLATELET VOLUME 9.8 fL (7.9-10.8); MONOCYTES % (AUTO) 12.1 %; PLT - PLATELET COUNT 131 10^3/uL (130-450); RED BLOOD COUNT 5.99 10^6/uL (4.20-5.40); RED CELL DISTRIBUTION WIDTH 12.8 % (12.0-15.0); WHITE BLOOD COUNT 2.7 x10^3/uL (4.8-10.8)
[2021-12-18 12:30] LABS: SLIDE REVIEW? Indicated
[2021-12-18 12:31] LABS: ABNORMAL LYMPHS % (MANUAL) 0 %
--- OUTSIDE RECORDS SUMMARY | 2021-12-18 12:40 | EXTERNAL MEDICAL SUMMARY RPT | Continuity of Care Document ---
:1970 Author Organization [facility] Address [address] [place] [address] Phone Care Team Providers Name Role Phone ETL ANALYST Unavailable Unavailable Mandi Unavailable Unavailable PA-C Unavailable Unavailable PA-C Unavailable Unavailable Allergies No information. Encounters No information. Medications date description facility 20211217 lisinopril-hydrochlorothiazide All 20211217 amlodipine All 20211217 lisinopril-hydrochlorothiazide All 20211217 amlodipine All 20211217 lisinopril-hydrochlorothiazide All 20211217 amlodipine All 20211215 amoxicillin All 20211215 amoxicillin All 20211215 amoxicillin All 20211215 amoxicillin All Problems date description facility 20211217 Urine C&S All 20211217 Hep C AB with Reflex All 20211217 Hematuria, unspecified All 20211217 Urinalysis with Microscopic Exam, Cultu re in Indicated All 20211217 LIPID PANEL All 20211217 HGBA1C All 20211217 COMPREHENSIVE METABOLIC PANEL All 20211217 CBC W/O Diff/Plt All 20211217 Blood in urine All 20211215 Dental abscess All 20211215 Periapical abscess without sinus All Procedures date description facility 20211217 CBC W/O Diff/Plt All 20211217 HGBA1C All 20211217 Urinalysis with Microscopic Exam, Cultu re in Indicated All 20211217 POC URINALYSIS DIP All 20211217 LIPID PANEL All 20211217 COMPREHENSIVE METABOLIC PANEL All 20211217 Urine C&S All 20211217 Hep C AB with Reflex All 20211217 CBC W/O Diff/Plt All 20211217 HGBA1C All 20211217 Urinalysis with Microscopic Exam, Cultu re in Indicated All 20211217 POC URINALYSIS DIP All 20211217 LIPID PANEL All 20211217 COMPREHENSIVE METABOLIC PANEL All 20211217 Urine C&S All 20211217 Hep C AB with Reflex All 20211217 CBC W/O Diff/Plt All 20211217 HGBA1C All 20211217 Urinalysis with Microscopic Exam, Cultu re in Indicated All 20211217 POC URINALYSIS DIP All 20211217 LIPID PANEL All 20211217 COMPREHENSIVE METABOLIC PANEL All 20211217 Urine C&S All 20211217 Hep C AB with Reflex All 20211215 Ketorolac Tromethamine 30 mg/ml Soln A ll 20211215 IM or SQ Injection All 20211215 Ketorolac Tromethamine 30 mg/ml Soln A ll 20211215 IM or SQ Injection All 20211215 Ketorolac Tromethamine 30 mg/ml Soln A ll 20211215 IM or SQ Injection All 20211215 Ketorolac Tromethamine 30 mg/ml Soln A ll 20211215 IM or SQ Injection All Results test status date ordered by attending specimen adriel e Urobilinogen_Presence_ unknown 20211217 unknown unknown unknown in_Urine_by_Test_strip Specific_gravity_of_Ur unknown 20211217 unknown unknown unknown ine_by_Test_strip pH_of_Urine_by_Test_st unknown 20211217 unknown unknown unknown rip Nitrite_Presence_in_Ur unknown 20211217 unknown unknown unknown ine_by_Test_strip Leukocyte_esterase_Pre unknown 20211217 unknown unknown unknown sence_in_Urine_by_Test_ strip Ketones_Mass_volume_in unknown 20211217 unknown unknown unknown _Urine_by_Test_strip Glucose_Mass_volume_in unknown 20211217 unknown unknown unknown _Urine_by_Test_strip Color_of_Urine unknown 20211217 unknown unknown unknown Bilirubin.total_Presen unknown 20211217 unknown unknown unknown ce_in_Urine_by_Test_str ip Appearance_of_Urine unknown 20211217 unknown unknown unk nown urinalysis_routine unknown 20211217 unknown unknown unkn own appearance_urine unknown 20211217 unknown unknown unknow n leukocyte_esterase_uri unknown 20211217 unknown unknown unknown ne_by_dipstick urobilinogen_urine_sem unknown 20211217 unknown unknown unknown iquantitative_dipstick_ specific_gravity_urine unknown 20211217 unknown unknown unknown pH_urine_semiquantitat unknown 20211217 unknown unknown unknown omar nitrite_urine_semiquan unknown 20211217 unknown unknown unknown titative ketones_urine_by_test_ unknown 20211217 unknown unknown unknown strip bilirubin_urine unknown 20211217 unknown unknown unknown urine_color unknown 20211217 unknown unknown unknown Albumin_Presence_in_Ur unknown 20211217 unknown unknown unknown ine RBC_urine_dipstick unknown 20211217 unknown unknown unkn own Erythrocytes_area_in_U unknown 20211217 unknown unknown unknown rine_sediment_by_Micros copy_high_power_field glucose_urine_semiquan unknown 20211217 unknown unknown unknown titative protein_urine_semiquan unknown 20211217 unknown unknown unknown titative_dipstick_ Urobilinogen_Presence_ unknown 20211217 unknown unknown unknown in_Urine_by_Test_strip Specific_gravity_of_Ur unknown 20211217 unknown unknown unknown ine_by_Test_strip pH_of_Urine_by_Test_st unknown 20211217 unknown unknown unknown rip Nitrite_Presence_in_Ur unknown 20211217 unknown unknown unknown ine_by_Test_strip Leukocyte_esterase_Pre unknown 20211217 unknown unknown unknown sence_in_Urine_by_Test_ strip Ketones_Mass_volume_in unknown 20211217 unknown unknown unknown _Urine_by_Test_strip Glucose_Mass_volume_in unknown 20211217 unknown unknown unknown _Urine_by_Test_strip Color_of_Urine unknown 20211217 unknown unknown unknown Bilirubin.total_Presen unknown 20211217 unknown unknown unknown ce_in_Urine_by_Test_str ip Appearance_of_Urine unknown 20211217 unknown unknown unk nown urinalysis_routine unknown 20211217 unknown unknown unkn own appearance_urine unknown 20211217 unknown unknown unknow n leukocyte_esterase_uri unknown 20211217 unknown unknown unknown ne_by_dipstick urobilinogen_urine_sem unknown 20211217 unknown unknown unknown iquantitative_dipstick_ specific_gravity_urine unknown 20211217 unknown unknown unknown pH_urine_semiquantitat unknown 20211217 unknown unknown unknown omar nitrite_urine_semiquan unknown 20211217 unknown unknown unknown titative ketones_urine_by_test_ unknown 20211217 unknown unknown unknown strip bilirubin_urine unknown 20211217 unknown unknown unknown urine_color unknown 20211217 unknown unknown unknown Albumin_Presence_in_Ur unknown 20211217 unknown unknown unknown ine RBC_urine_dipstick unknown 20211217 unknown unknown unkn own Erythrocytes_area_in_U unknown 20211217 unknown unknown unknown rine_sediment_by_Micros copy_high_power_field glucose_urine_semiquan unknown 20211217 unknown unknown unknown titative protein_urine_semiquan unknown 20211217 unknown unknown unknown titative_dipstick_ urea_nitrogen_blood unknown 20211217 unknown unknown unk nown Erythrocytes_volume_in unknown 20211217 unknown unknown unknown _Blood_by_Automated_cou nt Erythrocyte_distributi unknown 20211217 unknown unknown unknown on_width_Ratio_by_Autom ated_count MCV_Entitic_volume_by_ unknown 20211217 unknown unknown unknown Automated_count MCH_Entitic_mass_by_Au unknown 20211217 unknown unknown unknown tomated_count Platelets_volume_in_Bl unknown 20211217 unknown unknown unknown ood_by_Automated_count Platelet_mean_volume_E unknown 20211217 unknown unknown unknown ntitic_volume_in_Blood_ by_Rees-Myra Hemoglobin_Mass_volume unknown 20211217 unknown unknown unknown _in_Blood leukocyte_count_blood unknown 20211217 unknown unknown u nknown erythrocyte_RBC_count unknown 20211217 unknown unknown u nknown Leukocytes_volume_in_B unknown 20211217 unknown unknown unknown lood_by_Automated_count Glomerular_Filtration_ unknown 20211217 unknown unknown unknown rate platelet_count unknown 20211217 unknown unknown unknown hemoglobin_blood unknown 20211217 unknown unknown unknow n hematocrit_blood unknown 20211217 unknown unknown unknow n potassium_blood unknown 20211217 unknown unknown unknown WBC_urine_on_microscop unknown 20211217 unknown unknown unknown y Urobilinogen_Presence_ unknown 20211217 unknown unknown unknown in_Urine_by_Test_strip Urobilinogen_Presence_ unknown 20211217 unknown unknown unknown in_Urine_by_Test_strip Specific_gravity_of_Ur unknown 20211217 unknown unknown unknown ine_by_Test_strip Specific_gravity_of_Ur unknown [id number] unknown unknown unknown ine_by_Test_strip pH_of_Urine_by_Test_st unknown [id number] unknown unknown unknown rip Nitrite_Presence_in_Ur unknown [id number] unknown unknown unknown ine_by_Test_strip Nitrite_Presence_in_Ur unknown [id number] unknown unknown unknown ine_by_Test_strip Leukocyte_esterase_Pre unknown [id number] unknown unknown unknown sence_in_Urine_by_Test_ strip Leukocyte_esterase_Pre unknown 20211217 unknown unknown unknown sence_in_Urine_by_Test_ strip Ketones_Mass_volume_in unknown 20211217 unknown unknown unknown _Urine_by_Test_strip Ketones_Mass_volume_in unknown 20211217 unknown unknown unknown _Urine_by_Test_strip Glucose_Mass_volume_in unknown 20211217 unknown unknown unknown _Urine_by_Test_strip Color_of_Urine unknown 20211217 unknown unknown unknown Color_of_Urine unknown 20211217 unknown unknown unknown Bilirubin.total_Presen unknown 20211217 unknown unknown unknown ce_in_Urine_by_Test_str ip Bilirubin.total_Presen unknown 20211217 unknown unknown unknown ce_in_Urine_by_Test_str ip Appearance_of_Urine unknown 20211217 unknown unknown unk nown clarity_urine_point unknown 20211217 unknown unknown unk nown pH_study_of_acidity unknown 20211217 unknown unknown unk nown Glomerular_filtration_r unknown 20211217 unknown unknown unknown ate_1.73_sq_M.predicted _among_non-blacks_Volum e_Rate_Area_in_Serum_Pl asma_or_Blood_by_Creati nine-based_formula_MDRD _ urinalysis_routine unknown 20211217 unknown unknown unkn own Hemoglobin_A1c_Hemoglo unknown 20211217 unknown unknown unknown bin_total_in_Blood_-_ Hematocrit_Volume_Frac unknown 20211217 unknown unknown unknown tion_of_Blood_by_Automa ted_count triglyceride_serum_fas unknown 20211217 unknown unknown unknown ting bilirubin_serum_total unknown 20211217 unknown unknown u nknown alanine_aminotransfera unknown 20211217 unknown unknown unknown se_SGPT_serum carbon_dioxide_serum_t unknown 20211217 unknown unknown unknown otal aspartate_aminotransfe unknown 20211217 unknown unknown unknown rase_SGOT_serum protein_total_serum unknown 20211217 unknown unknown unk nown blood_glucose unknown 20211217 unknown unknown unknown potassium_blood unknown 20211217 unknown unknown unknown glucose_urine unknown 20211217 unknown unknown unknown appearance_urine unknown 20211217 unknown unknown unknow n leukocyte_esterase_uri unknown 20211217 unknown unknown unknown ne_by_dipstick leukocyte_esterase_uri unknown 20211217 unknown unknown unknown ne_by_dipstick urobilinogen_urine_sem unknown 20211217 unknown unknown unknown iquantitative_dipstick_ urobilinogen_urine_sem unknown 20211217 unknown unknown unknown iquantitative_dipstick_ specific_gravity_urine unknown 20211217 unknown unknown unknown specific_gravity_urine unknown 20211217 unknown unknown unknown pH_urine_semiquantitat unknown 20211217 unknown unknown unknown omar nitrite_urine_semiquan unknown 20211217 unknown unknown unknown titative nitrite_urine_semiquan unknown 20211217 unknown unknown unknown titative ketones_urine_by_test_ unknown 20211217 unknown unknown unknown strip ketones_urine_by_test_ unknown 20211217 unknown unknown unknown strip bilirubin_urine unknown 20211217 unknown unknown unknown bilirubin_urine unknown 20211217 unknown unknown unknown mean_corpuscular_volum unknown 20211217 unknown unknown unknown e_RBC Urea_nitrogen_Mass_vol unknown 20211217 unknown unknown unknown ume_in_Serum_or_Plasma globulin_serum unknown 20211217 unknown unknown unknown LDL_cholesterol_serum unknown 20211217 unknown unknown u nknown alkaline_phosphatase_s unknown 20211217 unknown unknown unknown [place] Sodium_Moles_volume_in unknown 20211217 unknown unknown unknown _Serum_or_Plasma Protein_Mass_volume_in unknown 20211217 unknown unknown unknown _Serum_or_Plasma hemoglobin_A1C_blood_a unknown 20211217 unknown unknown unknown s_of_total_hemoglobin anion_gap_serum unknown 20211217 unknown unknown unknown mean_platelet_volume unknown 20211217 unknown unknown un known urine_color unknown 20211217 unknown unknown unknown urine_color unknown 20211217 unknown unknown unknown Glucose_mean_value_Mas unknown 20211217 unknown unknown unknown s_volume_in_Blood_Estim ated_from_glycated_hemo globin HDL_cholesterol_serum unknown 20211217 unknown unknown u nknown Triglyceride_Mass_volu unknown 20211217 unknown unknown unknown me_in_Serum_or_Plasma_- _mg_dL very_low_density_lipop unknown 20211217 unknown unknown unknown roteins LDL_HDL_low-density_li unknown 20211217 unknown unknown unknown poprotein_high-density_ lipoprotein_ratio cholesterol_HDL_ratio_ unknown 20211217 unknown unknown unknown serum_percent Glucose_Mass_volume_in unknown 20211217 unknown unknown unknown _Urine Glucose_Mass_volume_in unknown 20211217 unknown unknown unknown _Serum_or_Plasma Globulin_Mass_volume_i unknown 20211217 unknown unknown unknown n_Serum Creatinine_Mass_volume unknown 20211217 unknown unknown unknown _in_Serum_or_Plasma cholesterol_HDL_ratio_ unknown 20211217 unknown unknown unknown serum_percent Cholesterol_Mass_volum unknown 20211217 unknown unknown unknown e_in_Serum_or_Plasma_-_ mg_dL Cholesterol_in_VLDL_Ma unknown 20211217 unknown unknown unknown ss_volume_in_Serum_or_P lasma Cholesterol_in_LDL_Mas unknown 20211217 unknown unknown unknown s_volume_in_Serum_or_Pl asma_-_mg_dL Cholesterol_in_HDL_Mas unknown 20211217 unknown unknown unknown s_volume_in_Serum_or_Pl asma_-_mg_dL Chloride_Moles_volume_ unknown 20211217 unknown unknown unknown in_Serum_or_Plasma carbon_dioxide_serum_t unknown 20211217 unknown unknown unknown otal Calcium_Moles_volume_i unknown 20211217 unknown unknown unknown n_Serum_or_Plasma albumin_serum unknown 20211217 unknown unknown unknown Bilirubin.total_Mass_v unknown 20211217 unknown unknown unknown olume_in_Serum_or_Plasm a Aspartate_aminotransfe unknown 20211217 unknown unknown unknown rase_Enzymatic_activity _volume_in_Serum_or_Pla sma Anion_gap_4_in_Serum_o unknown 20211217 unknown unknown unknown r_Plasma Estimated_Average_Gluc unknown 20211217 unknown unknown unknown ose creatinine_serum unknown 20211217 unknown unknown unknow n Alkaline_phosphatase_E unknown 20211217 unknown unknown unknown nzymatic_activity_volum e_in_Blood Albumin_Globulin_Mass_ unknown 20211217 unknown unknown unknown Ratio_in_Serum_or_Plasm a Albumin_Presence_in_Ur unknown 20211217 unknown unknown unknown ine Albumin_Mass_volume_in unknown 20211217 unknown unknown unknown _Serum_or_Plasma Alanine_aminotransfera unknown 20211217 unknown unknown unknown se_Enzymatic_activity_v olume_in_Serum_or_Plasm a mean_corpuscular_hemog unknown [id number] unknown unknown unknown lobin_concentration_rbc RBC_urine_dipstick unknown 92344956 unknown unknown unkn own sodium_serum unknown 31641291 unknown unknown unknown albumin_globulin_ratio unknown [id number] unknown unknown unknown _serum cholesterol_serum unknown 81211524 unknown unknown unkno wn Erythrocytes_area_in_U unknown [id number] unknown unknown unknown rine_sediment_by_Micros copy_high_power_field chloride_serum unknown 30825828 unknown unknown unknown glucose_urine_semiquan unknown 45069564 unknown unknown unknown titative protein_urine_semiquan unknown [id number] unknown unknown unknown titative_dipstick_ calcium_serum unknown 98786246 unknown unknown unknown mean_corpuscular_hemog unknown 09507828 unknown unknown unknown lobin_RBC red_blood_cell_distrib unknown 73543110 unknown unknown unknown ution_width WBC_urine_on_microscop unknown 96372637 unknown unknown unknown y T unknown 91472093 unknown unknown unknown T unknown [id number] unknown unknown unknown WBC_URINE unknown [id number] unknown unknown unknown UROBILINOGEN_URINE unknown [id number] unknown unknown unkn own SPECIFIC_GRAVITY_URINE unknown [id number] unknown unknown unknown T unknown [id number] unknown unknown unknown T unknown [id number] unknown unknown unknown T unknown [id number] unknown unknown unknown T unknown [id number] unknown unknown unknown T unknown [id number] unknown unknown unknown T unknown 80234380 unknown unknown unknown T unknown [id number] unknown unknown unknown T unknown [id number] unknown unknown unknown T unknown [id number] unknown unknown unknown T unknown 88620275 unknown unknown unknown T unknown [id number] unknown unknown unknown PH_URINE unknown [id number] unknown unknown unknown NITRITE_URINE unknown [id number] unknown unknown unknown LEUKOCYTE_ESTERASE_URI unknown 21691029 unknown unknown unknown NE KETONES_URINE_UA_ unknown [id number] unknown unknown unkno wn GLUCOSE_URINE_UA_ unknown 10932504 unknown unknown unkno wn COLOR_URINE unknown 25416466 unknown unknown unknown CLARITY_URINE unknown [id number] unknown unknown unknown BILIRUBIN_URINE unknown [id number] unknown unknown unknown T unknown [id number] unknown unknown unknown T unknown [id number] unknown unknown unknown T unknown [id number] unknown unknown unknown T unknown [id number] unknown unknown unknown T unknown [id number] unknown unknown unknown T unknown 98512186 unknown unknown unknown T unknown [id number] unknown unknown unknown T unknown [id number] unknown unknown unknown T unknown 17971745 unknown unknown unknown T unknown 11864812 unknown unknown unknown T unknown [id number] unknown unknown unknown T unknown 14497930 unknown unknown unknown T unknown [id number] unknown unknown unknown LDL_HDL_RATIO unknown 33055076 unknown unknown unknown LDL_CHOLESTEROL_CALCUL unknown [id number] unknown unknown unknown ATED T unknown [id number] unknown unknown unknown T unknown [id number] unknown unknown unknown T unknown 60100201 unknown unknown unknown T unknown [id number] unknown unknown unknown T unknown [id number] unknown unknown unknown T unknown [id number] unknown unknown unknown T unknown 24405005 unknown unknown unknown GFR_-_MDRD unknown 66480165 unknown unknown unknown T unknown [id number] unknown unknown unknown T unknown [id number] unknown unknown unknown ESTIMATED_AVERAGE_GLUC unknown 85325328 unknown unknown unknown OSE T unknown [id number] unknown unknown unknown T unknown [id number] unknown unknown unknown T unknown [id number] unknown unknown unknown T unknown [id number] unknown unknown unknown T unknown 07793024 unknown unknown unknown CHOL_HDL_RATIO unknown [id number] unknown unknown unknown T unknown [id number] unknown unknown unknown T unknown [id number] unknown unknown unknown BILIRUBIN_TOTAL unknown 41537145 unknown unknown unknown T unknown [id number] unknown unknown unknown T unknown [id number] unknown unknown unknown T unknown [id number] unknown unknown unknown ALT_ALANINE_AMINOTRANS unknown [id number] unknown unknown unknown FERASE ALKALINE_PHOSPHATASE unknown [id number] unknown unknown un known T unknown [id number] unknown unknown unknown T unknown [id number] unknown unknown unknown ALBUMIN_GLOBULIN_RATIO unknown 10181393 unknown unknown unknown T unknown [id number] unknown unknown unknown HEMOGLOBIN_A1c_ unknown 74890177 unknown unknown unknown facility observation status value reference units lab code abn ormal line range notes All Urobilinogen unknown negative unknown _5818-0 unkn own unknown _Presence_in_ Urine_by_Test _strip All Specific_gra unknown 1.020 unknown _5811-5 unknow n unknown vity_of_Urine _by_Test_stri p All pH_of_Urine_ unknown 6 unknown _5803-2 unknow n unknown by_Test_strip All Nitrite_Pres unknown negative unknown _5802-4 unkn own unknown ence_in_Urine _by_Test_stri p All Leukocyte_es unknown negative unknown _5799-2 unkn own unknown terase_Presen ce_in_Urine_b y_Test_strip All Ketones_Mass unknown large unknown _5797-6 unknow n unknown _volume_in_Ur (80) ine_by_Test_s trip All Glucose_Mass unknown negative unknown _5792-7 unkn own unknown _volume_in_Ur ine_by_Test_s trip All Color_of_Uri unknown brown unknown _5778-6 unknow n unknown ne All Bilirubin.to unknown negative unknown _5770-3 unkn own unknown tal_Presence_ in_Urine_by_T est_strip All Appearance_o unknown clear unknown _5767-9 unknow n unknown f_Urine All urinalysis_r unknown Clean unknown _47 unknown unknown outine Catch All appearance_u unknown clear unknown _328 unknown unknown rine All leukocyte_es unknown negative unknown _327 unkno wn unknown terase_urine_ by_dipstick All urobilinogen unknown negative unknown _326 unkno wn unknown _urine_semiqu antitative_di pstick_ All specific_gra unknown 1.020 unknown _325 unknown unknown vity_urine All pH_urine_sem unknown 6 unknown _324 unknown unknown iquantitative All nitrite_urin unknown negative unknown _323 unkno wn unknown e_semiquantit ative All ketones_urin unknown large unknown _322 unknown unknown e_by_test_str (80) ip All bilirubin_ur unknown negative unknown _319 unkno wn unknown ine All urine_color unknown brown unknown _2751 unknown unknown All Albumin_Pres unknown trace unknown _1753-3 unknow n unknown ence_in_Urine All RBC_urine_di unknown 3+ unknown _1700005 unkno wn unknown pstick All Erythrocytes unknown 3+ unknown _13945-1 unkno wn unknown _area_in_Urin e_sediment_by _Microscopy_h igh_power_fie ld All glucose_urin unknown negative unknown _123 unkno wn unknown e_semiquantit ative All protein_urin unknown trace unknown _118 unknown unknown e_semiquantit ative_dipstic k_ All Urobilinogen unknown negative unknown _5818-0 unkn own unknown _Presence_in_ Urine_by_Test _strip All Specific_gra unknown 1.020 unknown _5811-5 unknow n unknown vity_of_Urine _by_Test_stri p All pH_of_Urine_ unknown 6 unknown _5803-2 unknow n unknown by_Test_strip All Nitrite_Pres unknown negative unknown _5802-4 unkn own unknown ence_in_Urine _by_Test_stri p All Leukocyte_es unknown negative unknown _5799-2 unkn own unknown terase_Presen ce_in_Urine_b y_Test_strip All Ketones_Mass unknown large unknown _5797-6 unknow n unknown _volume_in_Ur (80) ine_by_Test_s trip All Glucose_Mass unknown negative unknown _5792-7 unkn own unknown _volume_in_Ur ine_by_Test_s trip All Color_of_Uri unknown brown unknown _5778-6 unknow n unknown ne All Bilirubin.to unknown negative unknown _5770-3 unkn own unknown tal_Presence_ in_Urine_by_T est_strip All Appearance_o unknown clear unknown _5767-9 unknow n unknown f_Urine All urinalysis_r unknown Clean unknown _47 unknown unknown outine Catch All appearance_u unknown clear unknown _328 unknown unknown rine All leukocyte_es unknown negative unknown _327 unkno wn unknown terase_urine_ by_dipstick All urobilinogen unknown negative unknown _326 unkno wn unknown _urine_semiqu antitative_di pstick_ All specific_gra unknown 1.020 unknown _325 unknown unknown vity_urine All pH_urine_sem unknown 6 unknown _324 unknown unknown iquantitative All nitrite_urin unknown negative unknown _323 unkno wn unknown e_semiquantit ative All ketones_urin unknown large unknown _322 unknown unknown e_by_test_str (80) ip All bilirubin_ur unknown negative unknown _319 unkno wn unknown ine All urine_color unknown brown unknown _2751 unknown unknown All Albumin_Pres unknown trace unknown _1753-3 unknow n unknown ence_in_Urine All RBC_urine_di unknown 3+ unknown _1700005 unkno wn unknown pstick All Erythrocytes unknown 3+ unknown _13945-1 unkno wn unknown _area_in_Urin e_sediment_by _Microscopy_h igh_power_fie ld All glucose_urin unknown negative unknown _123 unkno wn unknown e_semiquantit ative All protein_urin unknown trace unknown _118 unknown unknown e_semiquantit ative_dipstic k_ All urea_nitroge unknown 15 unknown mg/dL _9 unknown unknown n_blood All Erythrocytes unknown 5.73 10 unknown _789-8 unknow n unknown _volume_in_Bl 6/UL ood_by_Automa ted_count All Erythrocyte_ unknown 13.1 unknown % _788-0 unknown unknown distribution_ width_Ratio_b y_Automated_c ount All MCV_Entitic_ unknown 84.5 unknown fL _787-2 unknown unknown volume_by_Aut omated_count All MCH_Entitic_ unknown 28.3 unknown pg _785-6 unknown unknown mass_by_Autom ated_count All Platelets_vo unknown 126 10 unknown _777-3 unknown unknown lume_in_Blood 3/UL _by_Automated _count All Platelet_mea unknown 10.4 unknown fL _776-5 unknown unknown n_volume_Enti tic_volume_in _Blood_by_Ree s-Myra All Hemoglobin_M unknown 16.2 unknown g/dL _718-7 unknown unknown ass_volume_in _Blood All leukocyte_co unknown 3.1 X10 unknown _68 unknow n unknown unt_blood 3/UL All erythrocyte_ unknown 5.73 10 unknown _67 unknow n unknown RBC_count 6/UL All Leukocytes_v unknown 3.1 X10 unknown _6690-2 unkno wn unknown olume_in_Bloo 3/UL d_by_Automate d_count All Glomerular_F unknown 65 unknown mL/mi _66455 unknown unknown iltration_rat n e All platelet_cou unknown 126 10 unknown _66 unknown unknown nt 3/UL All hemoglobin_b unknown 16.2 unknown g/dL _65 unknown unknown lood All hematocrit_b unknown 48.4 unknown % _64 unknown unknown lood All potassium_bl unknown 4.0 unknown meq/L _6298-4 unknow n unknown ood All WBC_urine_on unknown 0-3 /HPF unknown _5821-4 unkn own unknown _microscopy All Urobilinogen unknown negative unknown _5818-0 unkn own unknown _Presence_in_ Urine_by_Test _strip All Urobilinogen unknown 0.2 unknown _5818-0 unknow n unknown _Presence_in_ (NORMAL) Urine_by_Test _strip All Specific_gra unknown 1.025 unknown _5811-5 unknow n unknown vity_of_Urine _by_Test_stri p All Specific_gra unknown 1.020 unknown _5811-5 unknow n unknown vity_of_Urine _by_Test_stri p All pH_of_Urine_ unknown 6 unknown _5803-2 unknow n unknown by_Test_strip All Nitrite_Pres unknown negative unknown _5802-4 unkn own unknown ence_in_Urine _by_Test_stri p All Nitrite_Pres unknown NEGATIVE unknown _5802-4 unkn own unknown ence_in_Urine _by_Test_stri p All Leukocyte_es unknown negative unknown _5799-2 unkn own unknown terase_Presen ce_in_Urine_b y_Test_strip All Leukocyte_es unknown NEGATIVE unknown _5799-2 unkn own unknown terase_Presen ce_in_Urine_b y_Test_strip All Ketones_Mass unknown large unknown _5797-6 unknow n unknown _volume_in_Ur (80) ine_by_Test_s trip All Ketones_Mass unknown 15 unknown _5797-6 unknow n unknown _volume_in_Ur ine_by_Test_s trip All Glucose_Mass unknown negative unknown _5792-7 unkn own unknown _volume_in_Ur ine_by_Test_s trip All Color_of_Uri unknown brown unknown _5778-6 unknow n unknown ne All Color_of_Uri unknown YELLOW unknown _5778-6 unknow n unknown ne All Bilirubin.to unknown negative unknown _5770-3 unkn own unknown tal_Presence_ in_Urine_by_T est_strip All Bilirubin.to unknown NEGATIVE unknown _5770-3 unkn own unknown tal_Presence_ in_Urine_by_T est_strip All Appearance_o unknown clear unknown _5767-9 unknow n unknown f_Urine All clarity_urin unknown CLEAR unknown _5589 unknown unknown e_point All pH_study_of_ unknown 6.0 unknown _51641 unknown unknown acidity All Glomerular_fi unknown 65 unknown mL/mi _48642-3 unkno wn unknown ltration_rate n _1.73_sq_M.pr edicted_among _non-blacks_V olume_Rate_Ar ea_in_Serum_P lasma_or_Bloo d_by_Creatini ne-based_form ula_MDRD_ All urinalysis_r unknown Clean unknown _47 unknown unknown outine Catch All Hemoglobin_A unknown 5.8 unknown % _4548-4 unknow n unknown 1c_Hemoglobin _total_in_Blo od_-_ All Hematocrit_V unknown 48.4 unknown % _4544-3 unknow n unknown olume_Fractio n_of_Blood_by _Automated_co unt All triglyceride unknown 231 unknown mg/dL _44 unknown unknown _serum_fastin g All bilirubin_se unknown 0.8 unknown mg/dL _43 unknown unknown rum_total All alanine_amin unknown 19 unknown U/L _40 unknown unknown otransferase_ SGPT_serum All carbon_dioxi unknown 26 unknown mmol/ _3962 unknown unknown de_serum_tota L l All aspartate_am unknown 35 unknown U/L _39 unknown unknown inotransferas e_SGOT_serum All protein_tota unknown 7.5 unknown g/dL _36 unknown unknown l_serum All blood_glucos unknown 79 unknown mg/dL _3565 unknown unknown e All potassium_bl unknown 4.0 unknown meq/L _3483 unknown unknown ood All glucose_urin unknown NEGATIVE unknown _3369 unkno wn unknown e mg/dL All appearance_u unknown clear unknown _328 unknown unknown rine All leukocyte_es unknown negative unknown _327 unkno wn unknown terase_urine_ by_dipstick All leukocyte_es unknown NEGATIVE unknown _327 unkno wn unknown terase_urine_ by_dipstick All urobilinogen unknown negative unknown _326 unkno wn unknown _urine_semiqu antitative_di pstick_ All urobilinogen unknown 0.2 unknown _326 unknown unknown _urine_semiqu (NORMAL) antitative_di pstick_ All specific_gra unknown 1.025 unknown _325 unknown unknown vity_urine All specific_gra unknown 1.020 unknown _325 unknown unknown vity_urine All pH_urine_sem unknown 6 unknown _324 unknown unknown iquantitative All nitrite_urin unknown negative unknown _323 unkno wn unknown e_semiquantit ative All nitrite_urin unknown NEGATIVE unknown _323 unkno wn unknown e_semiquantit ative All ketones_urin unknown large unknown _322 unknown unknown e_by_test_str (80) ip All ketones_urin unknown 15 unknown _322 unknown unknown e_by_test_str ip All bilirubin_ur unknown negative unknown _319 unkno wn unknown ine All bilirubin_ur unknown NEGATIVE unknown _319 unkno wn unknown ine All mean_corpusc unknown 84.5 unknown fL _315 unknown unknown ular_volume_R BC All Urea_nitroge unknown 15 unknown mg/dL _3094-0 unknow n unknown n_Mass_volume _in_Serum_or_ Plasma All globulin_ser unknown 3.4 unknown _3059 unknown unknown um All LDL_choleste unknown 147 unknown mg/dL _30 unknown unknown rol_serum All alkaline_pho unknown 78 unknown U/L _3 unknown unknown sphatase_seru m All Sodium_Moles unknown 134 unknown mmol/ _2951-2 unknow n unknown _volume_in_Se L rum_or_Plasma All Protein_Mass unknown 7.5 unknown g/dL _2885-2 unknow n unknown _volume_in_Se rum_or_Plasma All hemoglobin_A unknown 5.8 unknown % _28 unknown unknown 1C_blood_as_o f_total_hemog lobin All anion_gap_se unknown 11.0 unknown _279 unknown unknown rum All mean_platele unknown 10.4 unknown fL _2784 unknown unknown t_volume All urine_color unknown brown unknown _2751 unknown unknown All urine_color unknown YELLOW unknown _2751 unknown unknown All Glucose_mean unknown 120 unknown mg/dL _27353-2 unkno wn unknown _value_Mass_v olume_in_Bloo d_Estimated_f rom_glycated_ hemoglobin All HDL_choleste unknown 42 unknown mg/dL _26 unknown unknown rol_serum All Triglyceride unknown 231 unknown mg/dL _2571-8 unknow n unknown _Mass_volume_ in_Serum_or_P lasma_-_mg_dL All very_low_den unknown 46 unknown mg/dL _2548 unknown unknown sity_lipoprot eins All LDL_HDL_low- unknown 3.5 (?) unknown _65727 unknow n unknown density_lipop rotein_high-d ensity_lipopr otein_ratio All cholesterol_ unknown 5.6 unknown _2404 unknown unknown HDL_ratio_ser um_percent All Glucose_Mass unknown NEGATIVE unknown _0-7 unkn own unknown _volume_in_Ur mg/dL ine All Glucose_Mass unknown 79 unknown mg/dL _2345-7 unknow n unknown _volume_in_Se rum_or_Plasma All Globulin_Mas unknown 3.4 unknown _2336-6 unknow n unknown s_volume_in_S [place] All Creatinine_M unknown 0.9 unknown mg/dL _2160-0 unknow n unknown ass_volume_in _Serum_or_Pla sma All cholesterol_ unknown 5.6 unknown _2094- unknow n unknown HDL_ratio_ser um_percent All Cholesterol_ unknown 235 unknown mg/dL _2092- unknow n unknown Mass_volume_i n_Serum_or_Pl asma_-_mg_dL All Cholesterol_ unknown 46 unknown mg/dL _2090- unknow n unknown in_VLDL_Mass_ volume_in_Ser um_or_Plasma All Cholesterol_ unknown 147 unknown mg/dL _2088- unknow n unknown in_LDL_Mass_v olume_in_Seru m_or_Plasma_- _mg_dL All Cholesterol_ unknown 42 unknown mg/dL _2084- unknow n unknown in_HDL_Mass_v olume_in_Seru m_or_Plasma_- _mg_dL All Chloride_Mol unknown 97 unknown mmol/ _2074-0 unknow n unknown es_volume_in_ L Serum_or_Plas ma All carbon_dioxi unknown 26 unknown mmol/ _2027- unknow n unknown de_serum_tota L l All Calcium_Mole unknown 8.9 unknown mg/dL _1999- unknow n unknown s_volume_in_S erum_or_Plasm a All albumin_seru unknown 4.1 unknown g/dL _2 unknown unknown m All Bilirubin.to unknown 0.8 unknown mg/dL _1974- unknow n unknown tal_Mass_volu me_in_Serum_o r_Plasma All Aspartate_am unknown 35 unknown U/L _1919- unknow n unknown inotransferas e_Enzymatic_a ctivity_volum e_in_Serum_or _Plasma All Anion_gap_4_ unknown 11.0 unknown _1863-0 unknow n unknown in_Serum_or_P lasma All Estimated_Av unknown 120 unknown mg/dL _180195 unknow n unknown erage_Glucose All creatinine_s unknown 0.9 unknown mg/dL _18 unknown unknown [place] All Alkaline_pho unknown 78 unknown U/L _1783-0 unknow n unknown sphatase_Enzy matic_activit y_volume_in_B lood All Albumin_Glob unknown 1.2 unknown _1759-0 unknow n unknown ulin_Mass_Rat io_in_Serum_o r_Plasma All Albumin_Pres unknown trace unknown _1753-3 unknow n unknown ence_in_Urine All Albumin_Mass unknown 4.1 unknown g/dL _1751-7 unknow n unknown _volume_in_Se rum_or_Plasma All Alanine_amin unknown 19 unknown U/L _1742-6 unknow n unknown otransferase_ Enzymatic_act ivity_volume_ in_Serum_or_P lasma All mean_corpusc unknown 33.5 unknown g/dL _17029 unknown unknown ular_hemoglob in_concentrat ion_rbc All RBC_urine_di unknown 3+ unknown _1700005 unkno wn unknown pstick All sodium_serum unknown 134 unknown mmol/ _159 unknown unknown L All albumin_glob unknown 1.2 unknown _146 unknown unknown ulin_ratio_se rum All cholesterol_ unknown 235 unknown mg/dL _14 unknown unknown serum All Erythrocytes unknown 3+ unknown _13945-1 unkno wn unknown _area_in_Urin e_sediment_by _Microscopy_h igh_power_fie ld All chloride_ser unknown 97 unknown mmol/ _13 unknown unknown um L All glucose_urin unknown negative unknown _123 unkno wn unknown e_semiquantit ative All protein_urin unknown trace unknown _118 unknown unknown e_semiquantit ative_dipstic k_ All calcium_seru unknown 8.9 unknown mg/dL _11 unknown unknown m All mean_corpusc unknown 28.3 unknown pg _1031 unknown unknown ular_hemoglob in_RBC All red_blood_ce unknown 13.1 unknown % _1030 unknown unknown ll_distributi on_width All WBC_urine_on unknown 0-3 /HPF unknown _1016 unkno wn unknown _microscopy All T unknown 3.1 X10 unknown WBC unknown unk nown 3/UL All T unknown 46 unknown mg/dL VLDL unknown unkn own All WBC_URINE unknown 0-3 /HPF unknown UWBC unknown unknown All UROBILINOGEN unknown 0.2 unknown UUROBIL unknow n unknown _URINE (NORMAL) All SPECIFIC_GRA unknown 1.025 unknown USG unknown unknown VITY_URINE All T unknown 0-3 /HPF unknown UR_WBC unknown un known All T unknown 0.2 unknown UR_URO unknown unkn own (NORMAL) All T unknown 1.025 unknown UR_SG unknown unkn own All T unknown 6.0 unknown UR_PH unknown unkn own All T unknown NEGATIVE unknown UR_NIT unknown un known All T unknown NEGATIVE unknown UR_LEU_E unknown unknown STERASE All T unknown 15 unknown UR_KETO_ unknown un known UA_ All T unknown NEGATIVE unknown UR_GLU unknown un known mg/dL All T unknown YELLOW unknown UR_COLOR unknown un known All T unknown CLEAR unknown UR_CLARI unknown un known TY All T unknown NEGATIVE unknown UR_BILI unknown u nknown All PH_URINE unknown 6.0 unknown UPH unknown un known All NITRITE_URIN unknown NEGATIVE unknown UNITRITE unk nown unknown E All LEUKOCYTE_ES unknown NEGATIVE unknown ULEUK unkno wn unknown TERASE_URINE All KETONES_URIN unknown 15 unknown UKET unknown unknown E_UA_ All GLUCOSE_URIN unknown NEGATIVE unknown UGLUC unkno wn unknown E_UA_ mg/dL All COLOR_URINE unknown YELLOW unknown UCOL unknown unknown All CLARITY_URIN unknown CLEAR unknown UCLAR unknown unknown E All BILIRUBIN_UR unknown NEGATIVE unknown UBIL unkno wn unknown INE All T unknown 231 unknown mg/dL TRIG unknown unkn own All T unknown 0.8 unknown mg/dL TOTAL_BI unknown un known LI All T unknown 13.1 unknown % RDW unknown unkn own All T unknown 5.73 10 unknown RBC unknown unk nown 6/UL All T unknown 7.5 unknown g/dL PRO_TOTA unknown un known L All T unknown 126 10 unknown PLT unknown unkn own 3/UL All T unknown 134 unknown mmol/ NA unknown unkn own L All T unknown 10.4 unknown fL MPV unknown unkn own All T unknown 84.5 unknown fL MCV unknown unkn own All T unknown 33.5 unknown g/dL MCHC unknown unkn own All T unknown 28.3 unknown pg MCH unknown unkn own All T unknown 3.5 (?) unknown LDL_HDL_ unknown u nknown RATIO All T unknown 147 unknown mg/dL LDL_CALC unknown un known All LDL_HDL_RATI unknown 3.5 (?) unknown LDLHDL unknow n unknown O All LDL_CHOLESTE unknown 147 unknown mg/dL LDLC unknown unknown ROL_CALCULATE D All T unknown 4.0 unknown meq/L K unknown unkn own All T unknown 16.2 unknown g/dL HGB unknown unkn own All T unknown 42 unknown mg/dL HDL unknown unkn own All T unknown 48.4 unknown % HCT unknown unkn own All T unknown 79 unknown mg/dL GLU unknown unkn own All T unknown 3.4 unknown GLOB unknown unkn own All T unknown 65 unknown mL/mi GFR_-_MD unknown un known n RD All GFR_-_MDRD unknown 65 unknown mL/mi GFR unknown unknown n All T unknown 11.0 unknown GAP unknown unkn own All T unknown 120 unknown mg/dL EST.AVG. unknown un known GLUC All ESTIMATED_AV unknown 120 unknown mg/dL EAG unknown unknown ERAGE_GLUCOSE All T unknown 0.9 unknown mg/dL CREAT unknown unkn own All T unknown 26 unknown mmol/ CO2 unknown unkn own L All T unknown 97 unknown mmol/ CL unknown unkn own L All T unknown 5.6 unknown CHOL_HDL unknown un known _RATIO All T unknown 235 unknown mg/dL CHOL unknown unkn own All CHOL_HDL_RAT unknown 5.6 unknown CHLHDL unknown unknown IO All T unknown 8.9 unknown mg/dL CA unknown unkn own All T unknown 15 unknown mg/dL BUN unknown unkn own All BILIRUBIN_TO unknown 0.8 unknown mg/dL BILIT unknown unknown THUY All T unknown 1.2 unknown A_G_RATI unknown un known O All T unknown 35 unknown U/L AST unknown unkn own All T unknown 19 unknown U/L ALT_SGPT unknown un known _ All ALT_ALANINE_ unknown 19 unknown U/L ALT unknown unknown AMINOTRANSFER ASE All ALKALINE_PHO unknown 78 unknown U/L ALP unknown unknown SPHATASE All T unknown 78 unknown U/L ALK_PHOS unknown un known All T unknown 4.1 unknown g/dL ALB unknown unkn own All ALBUMIN_GLOB unknown 1.2 unknown AGRATIO unknow n unknown ULIN_RATIO All T unknown 5.8 unknown % A1c_ unknown unkn own All HEMOGLOBIN_A unknown 5.8 unknown % A1c unknown unknown 1c_ Vital Signs date measurement value source 20211215 weight_standard 107 lb 20211215 weight_metric 48.53 kg 20211215 temperature_standard 98.1 F 20211215 temperature_metric 36.72 C 20211215 respiration_rate 16 /min 20211215 height_standard 61.75 in 20211215 height_metric 156.84 cm 20211215 heart_rate 107 /min 20211215 BP_systolic 178 mm[Hg] 20211215 BP_diastolic 104 mm[Hg] 20211215 BMI 19.80 kg/m2 20211217 weight_standard 106 lb 20211217 weight_metric 48.08 kg 20211217 temperature_standard 98.2 F 20211217 temperature_metric 36.78 C 20211217 respiration_rate 17 /min 20211217 height_standard 61.75 in 20211217 height_metric 156.84 cm 20211217 heart_rate 70 /min 20211217 BP_systolic 170 mm[Hg] 20211217 BP_diastolic 102 mm[Hg] 20211217 BMI 19.62 kg/m2 20211217 weight_standard 106 lb 20211217 weight_metric 48.08 kg 20211217 temperature_standard 98.2 F 20211217 temperature_metric 36.78 C 20211217 respiration_rate 17 /min 20211217 height_standard 61.75 in 20211217 height_metric 156.84 cm 20211217 heart_rate 70 /min 20211217 BP_systolic 170 mm[Hg] 20211217 BP_diastolic 102 mm[Hg] 20211217 BMI 19.62 kg/m2 20211217 weight_standard 106 lb 20211217 weight_metric 48.08 kg 20211217 temperature_standard 98.2 F 20211217 temperature_metric 36.78 C 20211217 respiration_rate 17 /min 20211217 height_standard 61.75 in 20211217 height_metric 156.84 cm 20211217 heart_rate 70 /min 20211217 BP_systolic 170 mm[Hg] 20211217 BP_diastolic 102 mm[Hg] 20211217 BMI 19.62 kg/m2
[2021-12-18 12:46] LABS: CREATININE 0.8 mg/dL (0.4-1.0)
[2021-12-18 12:47] LABS: ALBUMIN 4.1 g/dL (3.2-5.5); ALBUMIN/GLOBULIN RATIO 1.2 (1.0-2.2); BILIRUBIN,TOTAL 0.6 mg/dL (0.2-1.0); CALCIUM 9.4 mg/dL (8.5-10.3); POTASSIUM 3.5 mmol/L (3.5-5.0); TOTAL PROTEIN 7.4 g/dL (6.7-8.2)
[2021-12-18] MEDS ORDERED: SODIUM CHLORIDE 0.9% 1,000 ML IV STA (12:47)
--- NOTE | 2021-12-18 12:48 | ED Physician Documentation ---
History of Present Illness - Stated complaint Stated Complaint: SOA/Chest Pain - Chief complaint Chief Complaint: Resp - History obtained from History obtained from: Patient, Family - History of Present Illness Timing: How many days ago (5) - Additonal information Additional information: 51-year-old female has developed a pain to a right lower molar and she has been seen in the urgent care yesterday placed on some amoxicillin subsequent to that she has developed some nausea vomiting and diarrhea and she feels extremely dehydrated. She is having hard time even keeping her eyes open. She has taken amoxicillin a number of times previously is never caused this problem. PD PAST MEDICAL HISTORY - Past Medical History Cardiovascular: Hypertension, High cholesterol Respiratory: None Neuro: None Endocrine/Autoimmune: None GI: None [employer]: None : None HEENT: None Psych: Depression, Anxiety Musculoskeletal: None Derm: None - Past Surgical History General: Appendectomy /[employer]ER: section, Other - Present Medications Home Medications: Ambulatory Orders Medication Instructions Recorded Confirmed Ondansetron Odt [Zofran] 4 mg TL Q6H PRN #10 tablet 12/18/21 - Allergies Allergies/Adverse Reactions: Allergies Allergy/AdvReac Type Severity Reaction Status Date / Time hydrocodone bitartrate * AdvReac Nausea Verified 03/09/20 20:09 [From Vicodin] shellfish derived AdvReac Nausea Verified 03/09/20 20:09 - Social History Does the pt smoke?: Yes Smoking Status: Current every day smoker Does the pt drink ETOH?: Yes Does the pt have substance abuse?: No - Immunizations Immunizations are current?: Yes - POLST Patient has POLST: No POLST Status: Full Code PD ED PE NORMAL - Vitals Vital signs reviewed: Yes (tachy and hypertensive) - General General: Alert and oriented X 3, Well developed/nourished, Other (flattened affect and lay out helper tone consistent with pain. ) - HEENT HEENT: Atraumatic, PERRL, EOMI, Other (Right lower rear molar is broken at the base on the buccal side and there is drainage present and it is tender. 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, No motor deficit, No sensory deficit, Normal speech Eye Opening: Spontaneous Motor: Obeys Commands Verbal: Oriented GCS Score: 15 - Psych Psych: Normal mood, Normal affect Results - Vitals Vitals: Vital Signs - 24 hr 12/18/21 12/18/21 11:54 12:14 Temperature 36.7 C Heart Rate 111 H Respiratory 18 18 Rate Blood Pressure 143/98 H O2 Saturation 98 Oxygen O2 Source Room air - EKG (time done) 1203 Rate: Rate (enter#) (81) Rhythm: LAE, DENNIS Intervals: Other (borderline short ME interval) QRS: LVH Ischemia: Q waves Compare to prior EKG: Changed from prior EKG (SPT 03-09-2020 the voltage is higher) Computer interpretation: Agree with computer - Labs Labs: Laboratory Tests 12/18/21 12/18/21 12/18/21 12:10 12:10 12:10 WBC 2.7 L RBC 5.99 H Hgb 17.1 H Hct 49.4 H MCV 82.5 MCH 28.5 MCHC 34.6 RDW 12.8 Plt Count 131 MPV 9.8 Neut # (Auto) Not Reportable Lymph # (Auto) Not Reportable [place] # (Auto) Not Reportable Eos # (Auto) Not Reportable Baso # (Auto) Not Reportable Absolute Nucleated RBC Not Reportable Total Counted 100 Band Neuts % (Manual) 3 Abnorm Lymph % (Manual) 0 Nucleated RBC % Not Reportable Neutrophils # (Manual) 1.7 Lymphocytes # (Manual) 0.8 L Monocytes # (Manual) 0.2 Eosinophils # (Manual) 0.0 Basophils # (Manual) 0.0 Manual Slide Review Indicated WBC Morphology NORMAL APPEARANCE Platelet Estimate NORMAL (130-450,000) Platelet Morphology NORMAL APPEARANCE RBC Morph Micro Appear NORMAL APPEARANCE Sodium 132 L Potassium 3.5 Chloride 97 L Carbon Dioxide 22 Anion Gap 13.0 BUN 17 Creatinine 0.8 Estimated GFR (MDRD) 75 L Glucose 157 H Calcium 9.4 Total Bilirubin 0.6 AST 54 H ALT 22 Alkaline Phosphatase 73 Troponin I High Sens 9.6 Total Protein 7.4 Albumin 4.1 Globulin 3.3 Albumin/Globulin Ratio 1.2 Lipase 34 - Rads (name of study) chest Radiology: Prelim report reviewed (Impression: No acute pulmonary process.), EMP read indepedently (hyperexpanded lungs), See rad report Procedures - IVC sono (time) 1240 Bedside IVC sono: IVC measures (cm) (1.41), IVC collapsed c insp (cm) (complete), Dehydration (est <1 liter deficit) PD MEDICAL DECISION MAKING - ED course Complexity details: reviewed old records, reviewed results, re-evaluated patient, considered differential, d/w patient ED course: 51-year-old female with prior history of drug and alcohol abuse has an abscess right lower molar she has developed some nausea vomiting and diarrhea and has become dehydrated. Here in the emergency room she is hydrated feels much improved we will provide some Zofran for continued use. In addition we have used some [place] to cover the exposed nerve on the tooth and this seems to have helped. Departure - Departure Disposition: 01 Home, Self Care Clinical Impression: Dehydration, Dental abscess Condition: Stable Instructions: ED Dehydration, ED Abscess Dental Follow-Up: [facility] [place] [Provider Group] Prescriptions: Ondansetron Odt [Zofran] 4 mg TL Q6H PRN #10 tablet PRN Reason: Nausea / Vomiting Comments: Dang, today it looks like the symptoms you are having are related to your dehydration. In addition we have provided some [place] for you to use as needed on the exposed nerve root of your tooth. I have E scribed some Zofran for nausea to [facility] in [place]. Stay hydrated.
[2021-12-18 13:01] LABS: BAND NEUTROPHILS % (MANUAL) 3 %; LYMPHOCYTES # (MANUAL) 0.8 10^3/uL (1.5-3.5); LYMPHOCYTES % (MANUAL) 28 %; MONOCYTES # (MANUAL) 0.2 10^3/uL (0.0-1.0); NEUTROPHILS # (MANUAL) 1.7 10^3/uL (1.5-6.6)
[2021-12-18 13:02] LABS: RBC MORPHOLOGY (MULTIPLE) NORMAL APPEARANCE (NORMAL)
[2021-12-18 13:03] LABS: PLATELET ESTIMATE, MANUAL NORMAL (130-450,000) (NORMAL); PLATELET MORPHOLOGY NORMAL APPEARANCE (NORMAL); WBC MORPHOLOGY (MULTIPLE) NORMAL APPEARANCE (NORMAL)
[2021-12-18 14:08] VITALS: BP 150/102
== END 2021-12-18 14:08 | disposition home or self-care (01) ==
LOC: ED 11:44
DX: F17.200 Nicotine dependence, unspecified, uncomplicated (principal); E86.0 Dehydration; I10 Essential (primary) hypertension; E78.5 Hyperlipidemia, unspecified; R79.89 Other specified abnormal findings of blood chemistry; K04.7 Periapical abscess without sinus
CPT/HCPCS: 36415; 80053; 80061; 81001; 83036; 83690; 83721; 84484; 85025; 85027; 86803; 87086; 87522; 93005; 96360; 99283